=== PATIENT | male | born 1950 | race Caucasian/White ===

== ENCOUNTER 2019-08-04 10:24 | Outpatient (CLI) | payer BC, SELFPAY ==
--- NOTE | ~2019-08-04 | XR_ITS ---
XR abdomen/kub 1V DATE: 08/04/2019 10:48 INDICATION: Right ureteral stone TECHNIQUE: AP projection, 2 views COMPARISON: 08/04/[address] abdomen pelvis FINDINGS: A faintly calcified 5 mm stone overlies the lower right pelvis consistent with distal right ureteral calcified stone documented by CT abdomen pelvis examinations of 08/04/2019 and 08/01/2019. The psoas shadows are intact. No visceromegaly is evident. There is no evidence of bowel obstruction. Dextro scoliosis and multilevel degenerative disc disease of the lumbar spine. Diffuse idiopathic ske letal hyperostosis of the thoracic spine. IMPRESSION: Faintly calcified 5 mm distal right ureteral calcified stone Reviewed, dictated and finalized at [facility]. Reviewed, dictated and finalized at location A. WORKER
--- NOTE | ~2019-08-04 | CT_ITS ---
EXAMINATION: CT abdomen pelvis wo con DATE: 08/04/2019 10:45 INDICATION: Right ureteral stone TECHNIQUE: Computed tomography (CT) of the abdomen and pelvis was performed without intravenous contr ast. Automated exposure control and iterative reconstruction technique were employed. Exam dose: 213 .48 mGy-cm total exam DLP. COMPARISON: 08/01/2019 CT abdomen pelvis noncontrast examination FINDINGS: The previously reported 5 mm distal right ureteral stone has progressed slightly further in the distal right ureter, situated near the ureterovesical junction, with mildly increased hydronephr osis since 08/01/2019. There is mild right perinephric stranding. No other urinary tract calculus is noted. There are prostate calcifications as well as prostate enlargement. The urinary bladder is unremarkabl e. The included lower lung zones are clear. Normal heart size. No pericardial or pleural effusion. The liver, gallbladder, bile ducts, spleen, pancreas, pancreatic duct and adrenal glands are unremark able. Normal caliber of the abdominal aorta. No intraperitoneal or retroperitoneal or pelvic mass les ion or adenopathy or ascites is detected. No bowel obstruction or free air. Normal appendix. IMPRESSION: Persistent approximately 5 mm distal right ureteral calculus Reviewed, dictated and finalized at [facility]. Reviewed, dictated and finalized at location A. ERPRINTER
== END 2019-08-04 10:25 | disposition home or self-care (01) ==
LOC: ANHIMG 10:29
PROVIDERS: PCP Family Medicine; Visit Provider Urology
DX: N20.1 Calculus of ureter (principal)
CPT/HCPCS: 74018; 74176

== ENCOUNTER 2020-05-08 01:24 | Outpatient (CLI) | payer MEDICARE, SELFPAY ==
[2020-05-08 20:51] LABS: SARS-CoV-2 RNA PCR Negative
== END 2020-05-08 01:25 | disposition home or self-care (01) ==
LOC: ANHCOVIDDT 01:24
PROVIDERS: PCP Family Medicine; Visit Provider Internal Medicine Gastroenterology
DX: Z01.812 Encounter for preprocedural laboratory examination (principal); Z20.828 Contact with and (suspected) exposure to other viral communicable diseases
CPT/HCPCS: 87635; C9803; U0003

== ENCOUNTER 2020-05-10 00:49 | Day surgery (SDC) | payer MEDICARE, SELFPAY ==
[2020-05-03 14:53] VITALS: BMI 26.2
--- NOTE | 2020-05-09 12:30 | WPDANESEPPF ---
Anes - Initial Pre Proc Eval Procedure: Operation Date: 05/10/20 08:30 Proposed Procedures p Screening Colonoscopy - Afshin Sepulveda MD Date/Time: 05/09/20 12:30 Surgeon: Afshin Sepulveda MD Pre Op Diagnosis: neoplasm screening Patient Data Age: 69 Gender: M Height: 1.7 m Weight: 76 kg Allergies Allergy/AdvReac Type Severity Reaction Status Date / Time codeine Allergy Unknown ITCHING Verified 05/10/20 07:39 hydrocodone Allergy Unknown allergic Verified 05/10/20 07:39 to hydrocodone morphine Allergy Unknown itching, Verified 05/10/20 07:39 nausea oxycodone Allergy Unknown Unknown Verified 05/10/20 07:39 pentazocine Allergy Unknown HEAD,SPINAL Verified 05/10/20 07:39 THROBBING,RASH, ITCHING PENTAZOCINE LACTATE Allergy Unknown ITCHING Uncoded 05/10/20 07:39 Home Medications Medication Instructions Recorded Confirmed Type No Home Medications 05/03/20 05/03/20 History Patient hx anesthesia problems: none Family hx anesthesia problems: none PMFSH Past Medical History Medical History (Updated 05/10/20 @ 08:02 by Afshin Sepulveda MD) Arthritis Hyperlipidemia Kidney stone Overweight (BMI 25.0-29.9) Trigger finger Surgical History Surgical History H/O hernia repair H/O inguinal hernia repair H/O vasectomy History of total right knee replacement Family History Family History Father Diabetes mellitus Family history of coronary artery disease Mother Family history of malignant neoplasm of breast Social History Social History Smoking status: Never smoker Alcohol intake: current Drinks per week: 1 Alcohol use details: 1 BEER PER WEEK. Substance use: never Substance use type: does not use Living arrangements: with family Gender identity (if verbalized by the patient): Male Sexual Orientation (if Verbalized by the Patient): Straight or Heterosexual Spiritual care concerns: No Anes - Eval Final PreProcedure Day of Procedure 05/09/20 12:30 Patient weight: overweight Heart: regular rate and rhythm Lungs: clear to auscultation and normal air movement Airway: Mallampati scale class II Neurological: alert and oriented Last oral intake: >/= 8 hours ASA classification: II Emergent: no Anesthetic plan: proceed Anesthesia type and monitoring: general GIVS Informed Consent: The patient's anesthetic plan and its attendant risks and benefits were discussed with the patient/family/POA. Questions were solicited and answers provided to the satisfaction of the patient/family/POA.
[2020-05-10 07:40] VITALS: BP 107/82; PULSE 67; RESP 18; TEMP 36.2; O2SAT 99
[2020-05-10] MEDS: LACTATED RINGERS 1,000 ML 150 ML IV CONT (07:55)
--- NOTE | 2020-05-10 08:01 | WPDGICN ---
Assessment and Plan Assessment and plan (1) Encounter for screening colonoscopy: Code(s): Z12.11 - Encounter for screening for malignant neoplasm of colon Status: Acute Assessment and Plan: Patient presents for screening colonoscopy. Further recommendations will be given after endoscopy. GI Consult Note Consult date/time: 05/10/20 08:01 HPI: Shayan Villalobos is a 69 year old male Seen in evaluation at the request of Dr. Maldonado and PA. Schilling. patient presents for neoplasia screening. Patient's current weight appetite bowel movements are normal. he denies abdominal pain. He has had no bleeding. Last colonoscopy was 10 years ago. Family history is noncontributory. Review of Systems Review of Systems: All systems reviewed & are unremarkable except as noted in HPI and below PMFSH Past Medical History Medical History (Updated 05/10/20 @ 08:02 by Afshin Sepulveda MD) Arthritis Hyperlipidemia Kidney stone Overweight (BMI 25.0-29.9) Trigger finger Surgical History Surgical History H/O hernia repair H/O inguinal hernia repair H/O vasectomy History of total right knee replacement Family History Family History Father Diabetes mellitus Family history of coronary artery disease Mother Family history of malignant neoplasm of breast Social History Social History Smoking status: Never smoker Alcohol intake: current Drinks per week: 1 Alcohol use details: 1 BEER PER WEEK. Substance use: never Substance use type: does not use Living arrangements: with family Gender identity (if verbalized by the patient): Male Sexual Orientation (if Verbalized by the Patient): Straight or Heterosexual Spiritual care concerns: No Meds Home Medications and Allergies Home Medications Medication Instructions Recorded Confirmed Type No Home Medications 05/03/20 05/03/20 History Allergies Allergy/AdvReac Type Severity Reaction Status Date / Time codeine Allergy Unknown ITCHING Verified 05/10/20 07:39 hydrocodone Allergy Unknown allergic Verified 05/10/20 07:39 to hydrocodone morphine Allergy Unknown itching, Verified 05/10/20 07:39 nausea oxycodone Allergy Unknown Unknown Verified 11/05/20 07:39 pentazocine Allergy Unknown HEAD,SPINAL Verified 05/10/20 07:39 THROBBING,RASH, ITCHING PENTAZOCINE LACTATE Allergy Unknown ITCHING Uncoded 05/10/20 07:39 Vital Signs Vital Signs - 24 hr 05/10/20 07:40 Temperature 97.1 F L Pulse Rate 67 Respiratory Rate 18 Blood Pressure 107/82 Pulse Oximetry 99 Exam Narrative: Exam Narrative: Physical exam reveals patient to be alert. Vital signs stable. HEENT exam unremarkable. Lungs are clear to auscultation and percussion. Heart is without murmur or extra sounds. Abdominal exam bowel sounds are present soft nontender with no organomegaly. Digital external rectal exam normal.
[2020-05-10 08:43] VITALS: BP 99/69; PULSE 54; RESP 18; O2SAT 98
[2020-05-10 08:53] VITALS: BP 109/70; PULSE 53; RESP 17; O2SAT 98
[2020-05-10 09:03] VITALS: BP 108/70; PULSE 52; RESP 16; O2SAT 99
== END 2020-05-10 09:12 | disposition home or self-care (01) ==
PROVIDERS: PCP Family Medicine; Visit Provider Internal Medicine Gastroenterology
PROC: 0DJD8ZZ Inspection of Lower Intestinal Tract, Via Natural or Artificial Opening Endoscopic (ICD-10-PCS; CPT 45378; principal; 2020-05-10 08:30)
DX: Z12.11 Encounter for screening for malignant neoplasm of colon (principal); D12.5 Benign neoplasm of sigmoid colon; K64.8 Other hemorrhoids; E78.5 Hyperlipidemia, unspecified
CPT/HCPCS: 45385; 88305; J2704; J7120

== ENCOUNTER 2020-07-23 10:33 | Outpatient (CLI) | payer MEDICARE, SELFPAY ==
--- NOTE | ~2020-07-23 | XR_ITS ---
EXAMINATION: XR lg joint inject/asp w image EXAM DATE: 07/23/2020 11:34 INDICATION: Left shoulder pain. TECHNIQUE: A time-out was performed to verify the patient's name, date of , and procedure to b e performed. The procedure including the risks, benefits and alternatives were discussed with the pat ient. Risks discussed included bleeding and infection. The patient understood the risks and agreed to proceed. The skin overlying the left shoulder joint was prepped and draped in usual sterile fashion. Anesthetic was administered with 2 milliliters 1% lidocaine subcutaneously. A 22 G needle was adva nced under fluoroscopic guidance into the joint. Total of 2 mL of Omnipaque 240 confirmed intra-ar ticular position of the needle. Subsequently, injectate consisting of 80 mg Depo-Medrol, 3 cc 1% lid ocaine was instilled. The needle was removed and the entry site was cleaned and dressed. There wer e no immediate complications. The DAP for this procedure was 0.084 Gycm2. The procedure was perform ed on 07/23/2020. FINDINGS: Real-time fluoroscopy demonstrates the needle and contrast in the left shoulder joint. Patient reported left shoulder pain level of 4/10 before procedure, and pain level of 3/10 after proc edure. IMPRESSION: Successful left shoulder joint injection. Reviewed, dictated and finalized at location A. MOLDER
== END 2020-07-23 10:34 | disposition home or self-care (01) ==
LOC: ANHIMG 10:38
PROVIDERS: PCP Family Medicine; Visit Provider Orthopaedic Surgery
DX: M19.012 Primary osteoarthritis, left shoulder (principal)
CPT/HCPCS: 20610; 77002; J1040; Q9966

== ENCOUNTER 2020-07-25 10:18 | Outpatient (CLI) | payer MEDICARE, SELFPAY ==
--- NOTE | 2020-07-25 11:00 | NEURO_ITS ---
Impression: # Complains of numbness of hands. # Bilateral Carpal Tunnel Syndrome. # No ulnar neuropathy. # Normal needle/EMG exam. Nerve Conduction Studies Anti Sensory Summary Table Stim Site NR Peak (ms) P-T Amp (?V) Site1 Site2 Delta-P (ms) Dist (cm) Emanuel (m/s) Left Median Anti Sensory (2-3nd Digit) Wrist 3.5 29.2 Wrist 2-3nd Digit 3.5 14.0 40 Wrist 3.5 35.0 Wrist 2-3nd Digit 3.5 14.0 40 Right Median Anti Sensory (2-3nd Digit) Wrist 3.7 13.6 Wrist 2-3nd Digit 3.7 14.0 38 Wrist 3.7 25.5 Wrist 2-3nd Digit 3.7 14.0 38 Left Radial Anti Sensory (Base 1st Digit) Wrist 2.2 13.5 Wrist Base 1st Digit 2.2 0.0 Right Radial Anti Sensory (Base 1st Digit) Wrist 2.6 13.1 Wrist Base 1st Digit 2.6 0.0 Left Ulnar Anti Sensory (5th Digit) Wrist 2.7 34.1 Wrist 5th Digit 2.7 14.0 52 Right Ulnar Anti Sensory (5th Digit) Wrist 2.5 35.8 Wrist 5th Digit 2.5 14.0 56 Motor Summary Table Stim Site NR Onset (ms) O-P Amp (mV) Site1 Site2 Delta-0 (ms) Dist (cm) Emanuel (m/s) Left Median Motor (Abd Poll Brev) Wrist 4.6 1.0 Elbow Wrist 4.9 27.0 55 Elbow 9.5 4.1 Right Median Motor (Abd Poll Brev) Wrist 4.8 2.1 Elbow Wrist 4.6 27.0 59 Elbow 9.4 4.0 Left Ulnar Motor (Abd Dig Minimi) Wrist 2.7 5.7 A Elbow Wrist 5.2 30.0 58 A Elbow 7.9 4.5 Right Ulnar Motor (Abd Dig Minimi) Wrist 2.6 7.1 A Elbow Wrist 4.7 27.0 57 A Elbow 7.3 6.1 F Wave Studies NR F-Lat (ms) L-R F-Lat (ms) Left Median (Mrkrs) (Abd Poll Brev) 30.36 0.50 Right Median (Mrkrs) (Abd Poll Brev) 30.86 0.50 Left Ulnar (Mrkrs) (Abd Dig Min) 30.47 0.94 Right Ulnar (Mrkrs) (Abd Dig Min) 29.53 0.94 EMG Side Muscle Nerve Root Ins Act Fibs Amp Dur Recrt Comment Right 1stDorInt Ulnar C8-T1 Nml Nml Nml Nml Nml Right Ext Indicis Radial (Post Int) C7-8 Nml Nml Nml Nml Nml Right Ext Digitorum Radial (Post Int) C7-8 Nml Nml Nml Nml Nml Right BrachioRad Radial C5-6 Nml Nml Nml Nml Nml Right PronatorTeres Median C6-7 Nml Nml Nml Nml Nml Right Abd Poll Brev Median C8-T1 Nml Nml Nml Nml Nml Left 1stDorInt Ulnar C8-T1 Nml Nml Nml Nml Nml Left Ext Indicis Radial (Post Int) C7-8 Nml Nml Nml Nml Nml Left Ext Digitorum Radial (Post Int) C7-8 Nml Nml Nml Nml Nml Left BrachioRad Radial C5-6 Nml Nml Nml Nml Nml Left PronatorTeres Median C6-7 Nml Nml Nml Nml Nml Left Abd Poll Brev Median C8-T1 Nml Nml Nml Nml Nml Right ABD Dig Min Ulnar C8-T1 Nml Nml Nml Nml Nml Left ABD Dig Min Ulnar C8-T1 Nml Nml Nml Nml Nml MTDD
== END 2020-07-25 10:19 | disposition home or self-care (01) ==
LOC: ANHNEURO 10:19
PROVIDERS: PCP Family Medicine; Visit Provider Plastic Surgery
DX: R20.0 Anesthesia of skin (principal); G56.03 Carpal tunnel syndrome, bilateral upper limbs
CPT/HCPCS: 95886; 95911

== ENCOUNTER 2020-08-09 06:38 | Outpatient (CLI) | payer MEDICARE, SELFPAY ==
--- NOTE | ~2020-08-09 | CT_ITS ---
EXAMINATION: CT abdomen pelvis w con DATE: 08/09/2020 07:16 INDICATION: Prostate cancer TECHNIQUE: Computed tomography (CT) of the abdomen and pelvis was performed with 100 cc Omnipaque 350 intravenous contrast. Automated exposure control and iterative reconstruction technique were employe d. Exam dose: 341.20 mGy-cm total exam DLP. COMPARISON: 08/04/[address] abdomen pelvis FINDINGS: The lung bases are clear of infiltrate or consolidation. Normal heart size. No pericardial or pleural effusion. There is a posteromedial small fat-containing foramen of Bochdalek hernia. There is a 5 mm right hepatic cyst. No other hepatic space-occupying mass lesion is detected. Normal splenic size. No pancreatic mass lesion, calcification or ductal dilatation. The gallbladder is prese nt. No bile duct dilatation. No adrenal mass lesion is detected. 1.3 cm right renal cyst. No renal mass lesion is evident. No urinary tract calculus or hydroureteronephrosis. There is prominent prostate enlargement an patchy contrast enhancement. There is prominent vascularit y adjacent to the prostate gland, especially on the right. There is mild asymmetric enlargement of th e right seminal vesicle compared to the left. The urinary bladder is unremarkable. No abdominal aortic aneurysm. No intraperitoneal or retroperitoneal or pelvic mass lesion or adenopat hy or ascites. Normal appendix. Diverticulosis of the sigmoid colon; no CT evidence of diverticulitis. No bowel obstruction, bowel wa ll thickening, pneumatosis or intraperitoneal free air. Degenerative changes of the thoracic and lumbar spine; no suspicious osteolytic or osteoblastic lesio ns are noted. Bilateral hip osteoarthritis. IMPRESSION: Enlargement and patchy contrast enhancement of the prostate gland, consistent with clini justin history of prostate cancer. There is mild asymmetric enlargement of the right; which might indica te tumor extension. No pelvic or abdominal lymphadenopathy or osteosclerotic metastatic disease is detected 1.3 cm right renal cyst Small hepatic Diverticulosis of the colon Reviewed, dictated and finalized at [facility]. Reviewed, dictated and finalized at location A. PACKER IMPRESSION: Enlargement and patchy contrast enhancement of the prostate gland, consistent with clinical history of prostate cancer. There is mild asymmetric enlargement of the right; which might indicate tumor extension. No pelvic or abdominal lymphadenopathy or osteosclerotic metastatic disease is detected 1.3 cm right renal cyst Small hepatic Diverticulosis of the colon
[2020-08-09 07:12] LABS: Estimated Glomerular Filt Rate > 60
== END 2020-08-09 06:39 | disposition home or self-care (01) ==
LOC: ANHIMG 06:41
PROVIDERS: PCP Family Medicine; Visit Provider Urology
DX: C61 Malignant neoplasm of prostate (principal); N28.1 Cyst of kidney, acquired; K76.89 Other specified diseases of liver; K57.90 Diverticulosis of intestine, part unspecified, without perforation or abscess without bleeding
CPT/HCPCS: 74177; Q9967

== ENCOUNTER → 2020-08-13 01:14 | Outpatient (CLI) | payer MEDICARE, SELFPAY ==
[2020-08-13 18:28] LABS: SARS-CoV-2 RNA PCR Negative
== END ==
PROVIDERS: PCP Family Medicine; Visit Provider Plastic Surgery
DX: Z01.812 Encounter for preprocedural laboratory examination (principal); Z20.822 Contact with and (suspected) exposure to COVID-19
CPT/HCPCS: C9803; U0003; U0005

== ENCOUNTER 2020-08-16 01:25 | Day surgery (SDC) | payer MEDICARE, SELFPAY ==
[2020-08-08 14:20] VITALS: BMI 24.5
[2020-08-16] VITALS (7 sets, daily range): BP systolic 147–189; BP diastolic 65–82; PULSE 55–63; RESP 16; TEMP 36.3; O2SAT 99–100
--- NOTE | 2020-08-16 07:13 | WPDHPUPDATE1 ---
History and Physical Update Update Date/Time: 08/16/20 07:13 History and Physical has been reviewed, including an updated exam of the patient. There are NO changes in the patient's condition. Risks, benefits, and alternatives have been discussed and questions answered. Patient agrees to proceed with procedure.
--- NOTE | 2020-08-16 15:39 | SUR.PREOP ---
Up to bathroom.
[2020-08-16] MEDS: LIDO 1%/EPINEPHRINE 1:100,000 50 ML VIAL 6 ML INFILTRATE (16:22)
--- NOTE | 2020-08-16 16:33 | SUR.OPER ---
BILATERAL HAND INJECTIONS [address] OMER
--- NOTE | 2020-08-16 16:48 | PM.OP ---
Procedure Note - Brief Procedure Note - Brief Date of procedure: 08/16/20 Pre-op diagnosis: Bilateral Carpal Tunnel Syndrome Procedure performed: B OCTR Anesthesia: local Surgeon: Yogi Brown MD Estimated blood loss (mL): 3 Tourniquet time (min): 10 Drains: No Packing: No Pathology: none sent Condition: stable Disposition: same day
--- NOTE | 2020-08-16 16:52 | PM.PROC ---
Procedure Note - Detailed Date of procedure: 08/16/20 Pre-op diagnosis: Bilateral Carpal Tunnel Syndrome Post-op diagnosis: same Procedure performed: Bilateral open carpal tunnel release Description of procedure: The patient is under local anesthetic period of the sites were not marked in preop. He was taken to the operating room placed supine on the operating table. The hands were confirmed and at that time. The extremities were prepped and draped in usual fashion. The time-out was held and confirmed. The sites were marked for carpal tunnel release and locally infiltrated with 1% lidocaine with epinephrine. The left hand was done 1st. We inflated the tourniquet to 250 mmHg. The incision was made in the palm and carried bluntly through the subcutaneous tissue to the palmar fascia. This and the carpal ligament were incised with a 15 blade. Encountered on this side was a large neurovascular structure running from the ulnar side of this incision crossing distally to the mid palm. This structure was held out of harm's way as we proceeded. Under 3 point retraction we were able to identify and release the carpal ligament distally and proximally for complete release. The skin was closed with interrupted 4-0 nylon suture and a small bandage with Noel wraps applied. The tourniquet was released it was up for 7 minutes. Attention was then turned to the other hand and the incision was made as marked after inflating the tourniquet to 250 mmHg. The incision was carried bluntly through to palmar fascia. This and the carpal ligament were incised with a 15. Blade. Under 3 point retraction the ligament was divided distally and proximally for complete release. No unusual anatomy was noted on this side. The skin was closed with interrupted 4-0 nylon as the tourniquet was released during that process. The tourniquet was up for 3 minutes. The usual bandage was applied and he was discharged from the operating room in stable condition. He prefers not to have a narcotic analgesic. Surgeon: Yogi Brown MD
== END 2020-08-16 17:28 | disposition home or self-care (01) ==
PROVIDERS: PCP Family Medicine; Visit Provider Plastic Surgery
PROC: (CPT 64721; principal; 2020-08-16 15:45)
DX: G56.03 Carpal tunnel syndrome, bilateral upper limbs (principal)
CPT/HCPCS: 64721; A9270

== ENCOUNTER 2020-09-28 09:00 | Outpatient (CLI) | payer MEDICARE, SELFPAY ==
--- NOTE | 2020-09-28 09:38 | ECG_ITS ---
Measurements Intervals [place] Rate: 51 P: 60 VA: 191 QRS: 13 QRSD: 105 T: 30 QT: 408 QTc: 377 Interpretive Statements SINUS BRADYCARDIA BORDERLINE ECG Electronically Signed On 09-28-2020 10:27:44 CDT by Jamshid Martinez D.O.
[2020-09-28 10:07] LABS: Basophils Absolute Auto 0.1 K/mm3 (0.0-0.1); Basophils Percent Auto 1.3 % (0.2-1.2); Eosinophils Absolute Auto 0.2 K/mm3 (0-0.3); Eosinophils Percent Auto 3.3 % (0-4.4); Hematocrit 45.9 % (42.0-52.0); Hemoglobin 15.9 g/dL (14.0-18.0); Immature Granulocyte Absolute 0.02 K/mm3 (0.00-0.031); Immature Granulocyte Percent A 0.4 % (0-0.5); Lymphocytes Absolute Auto 1.15 K/mm3 (0.9-3.2); Mean Corpuscular HGB Conc 34.6 g/dl (32-36); Mean Corpuscular Hemoglobin 30.7 pg (26-34); Mean Corpuscular Volume 88.6 fl (80-100); Mean Platelet Volume 9.5 fl (7.4-10.4); Monocytes Absolute Auto 0.5 K/mm3 (0.1-0.6); Monocytes Percent Auto 9.4 % (2.6-8.5); Neutrophils Percent Auto 61.6 % (45.5-73.1); Platelet Count Result 181 k/mm3 (150-375); Red Blood Count 5.18 M/mm3 (4.6-6.20); Red Cell Distribution Width 12.7 % (11.5-14.5); White Blood Count 4.8 K/mm3 (4.5-10.0)
[2020-09-28 10:19] LABS: INR 0.9; Prothrombin Time 12.5 Seconds (11.1-14.7)
[2020-09-28 10:20] LABS: Alanine Aminotransferase 27 U/L (4-50); Albumin Level 4.3 g/dL (3.5-5.1); Alkaline Phosphatase 48 U/L (38-126); Anion Gap 4 mmol/L (8-16); Aspartate Amino Transferase 30 U/L (17-59); Bilirubin,Total 0.4 mg/dL (0.2-1.3); Blood Urea Nitrogen 20 mg/dL (9-20); Calcium 9.1 mg/dL (8.4-10.2); Carbon Dioxide 30 mmol/L (22-30); Chloride 107 mmol/L (98-107); Estimated Glomerular Filt Rate > 60; Glucose 69 mg/dL (75-110); Partial Thromboplastin Time 24.5 SECONDS (22.3-36.8); Sodium 141 mmol/L (137-145)
== END 2020-09-28 09:01 | disposition home or self-care (01) ==
PROVIDERS: PCP Family Medicine; Visit Provider Urology
DX: Z01.818 Encounter for other preprocedural examination (principal); C61 Malignant neoplasm of prostate; E78.5 Hyperlipidemia, unspecified; R00.1 Bradycardia, unspecified
CPT/HCPCS: 36415; 80053; 85025; 85610; 85730; 86850; 86900; 86901; 87086; 87088; 93005

== ENCOUNTER → 2020-10-08 00:09 | Outpatient (CLI) | payer MEDICARE, SELFPAY ==
[2020-10-08 19:28] LABS: SARS-CoV-2 RNA PCR Negative
== END ==
PROVIDERS: PCP Family Medicine; Visit Provider Urology
DX: Z01.812 Encounter for preprocedural laboratory examination (principal); Z20.822 Contact with and (suspected) exposure to COVID-19
CPT/HCPCS: C9803; U0003; U0005

== ENCOUNTER 2020-10-11 00:09 | Day surgery (SDC) | payer MEDICARE, SELFPAY ==
[2020-09-28 09:15] VITALS: BP 124/76; PULSE 60; RESP 20; TEMP 36.3; O2SAT 98; BMI 25.2
[2020-10-11] VITALS (14 sets, daily range): BP systolic 113–154; BP diastolic 64–83; PULSE 57–78; RESP 12–18; TEMP 36–36.4; O2SAT 96–100
[2020-10-11] MEDS: LACTATED RINGERS 1,000 ML 30 ML IV CONT ×2 (06:30→11:33)
--- NOTE | 2020-10-11 06:56 | WPDANESEPP ---
Anes - Eval Pre Procedure Procedure: Operation Date: 10/11/20 07:30 Proposed Procedures p Robotic Assisted Nerve Sparing Prostatectomy with Possible Pelvic Lymph Node Dissection - Elvis Rosales MD Date/Time: 10/11/20 06:56 Pre Op Diagnosis: prostate CA Patient Data Age: 69 Gender: M Height: 5 ft 7.5 in Weight: 74 kg Last Vital Signs Temp 97.3 F L 09/28/20 09:15 Pulse 60 09/28/20 09:15 Resp 20 09/28/20 09:15 BP 124/76 09/28/20 09:15 Pulse Ox 98 09/28/20 09:15 Allergies Allergy/AdvReac Type Severity Reaction Status Date / Time bee venom protein (honey bee) Allergy Unknown Swelling Verified 10/11/20 06:56 [bees] codeine Allergy Unknown Hives Verified 10/11/20 06:56 hydrocodone Allergy Unknown Hives Verified 10/11/20 06:56 morphine Allergy Unknown itching, Verified 10/11/20 06:56 nausea oxycodone Allergy Unknown Itching Verified 10/11/20 06:56 PENTAZOCINE LACTATE Allergy Unknown ITCHING Uncoded 10/11/20 06:56 Home Medications Medication Instructions Recorded Confirmed Type epinephrine 0.3 mg IM PRN PRN 08/08/20 09/28/20 History Patient hx anesthesia problems: none Family hx anesthesia problems: none PMFSH Past Medical History Medical History Anemia Arthritis Back pain Elevated PSA Encounter for screening colonoscopy Hyperlipidemia Kidney stone Overweight (BMI 25.0-29.9) Prostate CA Trigger finger Surgical History Surgical History H/O hernia repair H/O inguinal hernia repair H/O vasectomy History of total right knee replacement Family History Family History Father Diabetes mellitus Family history of coronary artery disease Mother Family history of malignant neoplasm of breast Social History Social History Smoking status: Never smoker Second hand tobacco smoke exposure: No Alcohol intake: current Drinks per week: 1 Substance use: never Substance use type: does not use Living arrangements: with family Gender identity (if verbalized by the patient): Male Spiritual care concerns: No Comments VR 51 SINUS BRADYCARDIA BORDERLINE ECG Exam Day of Procedure 10/11/20 06:56
--- NOTE | 2020-10-11 07:15 | WPDHPUPDATE1 ---
History and Physical Update Update Date/Time: 10/11/20 07:15 History and Physical has been reviewed, including an updated exam of the patient. There are NO changes in the patient's condition. Risks, benefits, and alternatives have been discussed and questions answered. Patient agrees to proceed with procedure. Proceed with robotic assist nerve sparing prostatectomy with possible plnd
[2020-10-11] MEDS: ceFAZolin 2 GM/D5W 50 ML 2 GM/50 ML BAG IVPB (07:29)
--- NOTE | 2020-10-11 07:34 | P.PNAN_ITS ---
Anes - Eval Final PreProcedure Day of Procedure 10/11/20 07:34 Patient weight: normal Heart: regular rate and rhythm Lungs: clear to auscultation Airway: Mallampati scale class II Neurological: alert and oriented Last oral intake: >/= 8 hours ASA classification: III Emergent: no Anesthetic plan: proceed Anesthesia type and monitoring: general ETT and standard monitoring Informed Consent: The patient's anesthetic plan and its attendant risks and b enefits were discussed with the patient/family/POA. Questions were solicited and answers provided to the satisfaction of the patient/family/POA.
[2020-10-11] MEDS: BUPIVACAINE HCL 0.5% PF 30 ML VIAL INFILTRATE (07:59)
--- NOTE | 2020-10-11 10:26 | SUR.OPER ---
total u/a output 125ml clear yellow u/a.
--- NOTE | 2020-10-11 11:20 | PM.PROC ---
Procedure Note - Detailed Date of procedure: 10/11/20 Pre-op diagnosis: prostate CA Post-op diagnosis: same Procedure performed: Robotic assisted nerve-sparing prostatectomy with right pelvic lymph node dissection Description of procedure: Patient is taken the operative suite and correctly identified. Once anesthesia was obtained was placed in low lying dorsal lithotomy position and prepped and draped usual sterile fashion. Sixteen Sinhala Eric was inserted with 20 cc in the balloon. Supraumbilical incision was then made carried down to the rectus fascia. Veress needle was inserted in the abdomen was insufflated to 15 mm Hg pressure. Camera port was placed in direct vision. Working ports were placed in appropriate locations. Patient was placed in steep Trendelenburg position and the robot was docked. The posterior approach was taken. Seminal vesicles were dissected out in their entirety. The vessels were transected. Plane between the prostate and rectum was developed. Bladder was then taken down in standard fashion. Space of Retzius was developed bilaterally extent and extended down to the puboprostatic ligaments. These were taken down. Dorsal venous complex was isolated using 0 Vicryl. This was secured to the pubic bone. The bladder neck was then opened. Bladder neck sparing procedure was performed. Patient has small median lobe which was dissected out. The posterior plane was then opened and the previously dissected seminal vesicles and vas were isolated. Pedicles were clipped. Bilateral nerve-sparing was performed. Dorsal venous complex was then transected. Urethra was also transected. A Vikas stitch was then placed using 0 Vicryl. Bladder neck was reapproximated to the urethral stump using V lock suture in a running fashion. There was good approximation mucosa. Sixteen Sinhala Eric was placed inflated with 10 cc sterile water. The bladder was filled with 250 cc of normal saline and there was no evidence of extravasation at this time. Right pelvic lymph node dissection was then performed with the boundaries being the external iliac vein obturator nerve, Benjie's ligament, and the bifurcation. Clips were placed distally and proximally. Specimens were placed in an Endo-Catch bag. A lap count needle count sponge counts were correct at this point. The robot was undocked. Specimen was brought out through the midline incision. Rectus fascia was closed using 0 Vicryl in a running fashion. Subcuticular stitches were then placed. Marcaine was used to anesthetize the skin. A Tr drain was placed through the 3rd arm port site and secured. Patient tolerated procedure well without complication is taken recovery stable condition. Anesthesia: GETA Surgeon: Elvis Rosales MD Estimated blood loss (mL): 100 Drains: Yes Packing: No Pathology: yes Complications: No immediate complications Condition: stable Disposition: PACU
[2020-10-11] MEDS: fentaNYL CITRATE INJ (*CRX) 100 MCG/2 ML VIAL 25 MCG IV PUSH (12:39)
--- NOTE | 2020-10-11 12:50 | ADMGEN ---
This patient, Shayan Villalobos, was admitted to Medical Room 252-01. Patient/family oriented to hospital policies and general routines including ID bracelet, bed and alarms, visiting hours, pain management, procedures, bathroom and other care routines, personal items, smoking policy, room service/diet, and visiting hours. Information on how to activate the Rapid Response Team has been discussed. Patient/Family are encouraged to report perceived risks to care and to ask questions if they do not understand what they are told or what they should do.
[2020-10-11] MEDS: LACTATED RINGERS 1,000 ML 125 ML IV CONT ×2 (13:27→20:51)
[2020-10-11] MEDS: KETOROLAC 15 MG/ML VIAL (*BKC) IV PUSH ×3 (13:27→23:51)
[2020-10-11] MEDS: DOCUSATE SODIUM 100 MG CAPSULE PO (17:00)
[2020-10-11] MEDS: traMADol HCL (*CRX) 50 MG TABLET PO (20:53)
[2020-10-12 02:00] VITALS: BP 114/60; PULSE 62; RESP 16; TEMP 36.2; O2SAT 98
[2020-10-12] MEDS: LACTATED RINGERS 1,000 ML 125 ML IV CONT (04:45)
[2020-10-12 05:40] LABS: Hematocrit 37.4 % (42.0-52.0); Hemoglobin 13.1 g/dL (14.0-18.0)
[2020-10-12 05:42] VITALS: BP 122/65; PULSE 55; RESP 16; TEMP 36.1; O2SAT 99
[2020-10-12 05:54] LABS: Anion Gap 2 mmol/L (8-16); Blood Urea Nitrogen 14 mg/dL (9-20); Calcium 7.8 mg/dL (8.4-10.2); Carbon Dioxide 29 mmol/L (22-30); Chloride 105 mmol/L (98-107); Estimated CRCL calculation 74 ml/min; Estimated Glomerular Filt Rate > 60; Glucose 104 mg/dL (75-110); Sodium 136 mmol/L (137-145)
[2020-10-12] MEDS: DOCUSATE SODIUM 100 MG CAPSULE PO (08:52)
[2020-10-12 10:00] VITALS: BP 134/58; PULSE 61; RESP 16; TEMP 36.1; O2SAT 100
[2020-10-12] MEDS: traMADol HCL (*CRX) 50 MG TABLET PO (10:57)
--- NOTE | 2020-10-12 12:17 | P.DS_ITS ---
DS: Admitting Diagnosis Admitting Diagnosis Admitting Diagnosis: Adenocarcinoma prostate DS: Discharge Diagnosis Discharge Diagnosis (1) Adenocarcinoma of prostate: Code(s): C61 - Malignant neoplasm of prostate Status: Acute DS: Summary Hospital Course Reason for hospitalization: adenocarcinoma of prostate. Presents for robotic assisted nerve-sparing prostatectomy with possible pelvic lymph node dissection Hospital Course: patient was admitted after his robotic assisted nerve-sparing prostatectomy. He has done well postoperatively. He is tolerating a diet and ambulating without difficulty. He will be discharged home with this Eric catheter in place. Status at Discharge Functional status at discharge: independent ambulation Time Spent with Patient Time attestation: Total time spent providing and/or coordinating discharge services: Exam 2 Const: General: cooperative and comfortable Eyes: General: appearance normal, both eyes and all related structures Chest: Chest palpation & inspection: normal inspection of the chest Resp: Effort & Inspection: normal respiratory effort Cardio: Rate: regular rate Rhythm: regular rhythm DS: Data Data Completed and Pending Pending studies at discharge: Pending at discharge 10/11/20 10:12 Surgical [PTH] Routine Surgical [PTH] Routine Labs on day of discharge: Labs from last 24 hours 10/12/20 10/12/20 05:13 05:13 Hgb 13.1 L Hct 37.4 L Sodium 136 L Potassium 4.0 Chloride 105 Carbon Dioxide 29 Anion Gap 2 L BUN 14 D Creatinine 0.80 Estim Creat Clear Calc 74 Estimated GFR > 60 Glucose 104 Calcium 7.8 L Discharge Plan Discharge Patient Disposition: Home, Self-Care Discharge Instructions: Discharged home with Eric catheter. Instructed on use of leg bag and catheter care. Follow up next week for catheter cystogram Stand Alone Forms: General Discharge Instructions Discharge Medications: Continued epinephrine 0.3 mg/0.3 mL auto-injector 0.3 mg IM PRN PRN (Reason: Allergic Symptoms) RF: 0
== END 2020-10-12 14:20 | disposition home or self-care (01) ==
LOC: ANHSURGERY 06:04 → ANH2MED 12:48
PROVIDERS: PCP Family Medicine; Visit Provider Urology
PROC: 0VT04ZZ Resection of Prostate, Percutaneous Endoscopic Approach (ICD-10-PCS; CPT 55867; principal; 2020-10-11 07:30)
DX: C61 Malignant neoplasm of prostate (principal); D64.9 Anemia, unspecified; E78.5 Hyperlipidemia, unspecified; M19.90 Unspecified osteoarthritis, unspecified site
CPT/HCPCS: 55866; 38571; S2900; 36415; 80048; 85014; 85018; 88305; 88307; 88309; 88342; A9270; J0330; J0690; J1100; J1885; J2250; J2405; J2704; J2710; J3010; J7030; J7120; Q9968

== ENCOUNTER 2020-10-18 10:16 | Outpatient (CLI) | payer MEDICARE, SELFPAY ==
--- NOTE | ~2020-10-18 | XR_ITS ---
EXAMINATION: XR cystogram EXAM DATE: 10/18/2020 10:59 INDICATION: Prostate cancer, had resection. TECHNIQUE: Fluoroscopic guidance used during cystogram performed through Eric catheter in place on p atient arrival. An Omnipaque 350/saline solution was used and allowed to infuse through the Eric cat heter under gravity. Wool Carder image, fluoroscopic images and postevacuation image were obtained. Total fluoroscopic time of 0.1 minutes. A total of 20 images obtained for the exam. The DAP for this proce dure was 7.6 mGym2. FINDINGS: Wool Carder image demonstrates scattered subcutaneous gas along the thighs and pelvis. There is m oderate symmetric bilateral hip primary osteoarthritis. Patient tolerated approximately 125 milliliters of distention. There is mild bladder wall trabeculati on. No contrast extravasation. Oblique images obtained at maximal distention demonstrate no evidence of ureteral reflux, however upon emptying the bladder, on the posterior back image there is linear co ntained appearing contrast most likely small amount of reflux into the left ureter. IMPRESSION: 1. Linear residual region of contrast on post evacuation image most likely small amount of left uret eral reflux. 2. Scattered subcutaneous emphysema. 3. No extravasation. Reviewed, dictated and finalized at location A. IMPRESSION: 1. Linear residual region of contrast on post evacuation image most likely sma ll amount of left ureteral reflux. 2. Scattered subcutaneous emphysema. 3. No extravasation.
== END 2020-10-18 10:17 | disposition home or self-care (01) ==
PROVIDERS: PCP Family Medicine; Visit Provider Urology
DX: C61 Malignant neoplasm of prostate (principal); J43.9 Emphysema, unspecified
CPT/HCPCS: 51600; 74430; Q9967

== ENCOUNTER 2021-06-24 02:26 | Day surgery (SDC) | payer MEDICARE, SELFPAY ==
[2021-06-19 11:16] VITALS: BMI 23.6
--- NOTE | 2021-06-19 11:22 | PC.NURSE ---
Report to the Outpatient Waiting Room, entrance under the green pavilion located off [facility], at time __0600 on date __06/24/21 . OR Time: . - You and your visitor will be asked a series of questions to screen for COVID 19 for your protection. - A mask is required within the hospital. - Only one visitor is allowed at this time. Patient visitors will be guided where to wait when not with patient. Preoperative COVID Testing Requirements: No COVID Test needed if: (proof is required; if not received patient will have Rapid Test prior to entry) - Patient has received COVID Vaccine at least 14 days prior to procedure date or - Patient has positive COVID test result within last 90 days of surgery date. COVID Test needed if above criteria is not met If not COVID vaccinated a COVID test must be conducted within 72 hours of surgery and patient is asked to isolate self from time of testing until procedure. You will go to the [facility] for your COVID testing. The [facility] Testing site is located at the corner of [address] [facility]. You will only be called if COVID results are positive and your surgeon may reschedule your elective surgery date. Patients may have clear liquids (water, carbonated beverages, clear teas, apple juice) until 3 hours prior to surgery with a maximum of 20 ounces. - No food from midnight until time of surgery - Infants may have breast milk until 4 hours before surgery, infant formula 6 hours prior to surgery. - Children will be allowed to drink immediately following surgery. If applicable, please bring a bottle or sippy cup to assist with drinking. Juice, water, soda, and popsicles are readily available. For infants on formula, please bring formula the day of surgery. Pacifiers are allowed. Take the following medications with a SIP of water the morning of surgery: __NONE Medications to discontinue per physician NONE Date to take last dose Please no make-up, nail bhutanese, hairspray, perfume, deodorant, or body powder the day of surgery. No jewelry (including any body piercings) or valuables the day of surgery, leave them at home. Please take a shower or bath the night before, or the morning of, surgery with an antibacterial soap. Wear comfortable, loose fitting clothing. Children are encouraged to wear pajamas. - Jewelry must be removed prior to entering the operating room. Rings and piercings that are not removed may be cut off. - The hospital will not accept responsibility for valuables. - Please leave all valuables, including medications, at home the day of surgery. If you are going home after surgery, a licensed home delivery driver must drive you home. - NO public transportation without another adult. - We recommend that an adult stay with you for 24 hours following discharge. - We also recommend that you do not drive, make important decision, drink alcoholic beverages, or take any drugs that were not prescribed by your health care provider for at least 24 hours after your discharge time. For Pediatric surgeries, we recommend two adults accompany the child home (only one inside the building at this time). Follow any additional instructions given to you from your surgeon. Telephone instructions given to __PATIENT and asked if any additional questions and then verbalized understanding. Patient advised to call surgeon office or pre surgery nurse liaison [phone] if any additional questions.
--- NOTE | 2021-06-21 08:08 | PM.IMHP ---
H&P: HPI History of Present Illness Date/Time: 06/21/21 08:08 70-year-old male patient Dr. Santoyo who presents today for right 5th A1 tawanda release patient cortisone injections in both these fingers A1 pulleys in December of this year. He got good relief 2 months. Symptoms have recurred. Rather proceed at point with surgical intervention rather than additional nonsurgical treatment. Chief Complaint: Right long and 5th trigger fingers Review of Systems Review of Systems: All systems reviewed & are unremarkable except as noted in HPI and below PMFSH Past Medical History Medical History Anemia Arthritis Back pain Elevated PSA Encounter for screening colonoscopy Hyperlipidemia Kidney stone Overweight (BMI 25.0-29.9) Prostate CA (~10/11/20) Trigger finger Surgical History Surgical History H/O hernia repair H/O inguinal hernia repair H/O vasectomy History of total right knee replacement Family History Family History Father Diabetes mellitus Family history of coronary artery disease Mother Family history of malignant neoplasm of breast Social History Social History Smoking status: Never smoker Second hand tobacco smoke exposure: No Alcohol intake: current Drinks per week: 1 Alcohol use details: 1 BEER PER WEEK. Substance use: never Substance use type: does not use Living arrangements: with family Gender identity (if verbalized by the patient): Male Sexual Orientation (if Verbalized by the Patient): Straight or Heterosexual Spiritual care concerns: No Meds Home Medications and Allergies Home Medications Medication Instructions Recorded Confirmed Type No Home Medications 06/19/21 06/19/21 History Allergies Allergy/AdvReac Type Severity Reaction Status Date / Time Sulfa (Sulfonamide Allergy Intermediate Abdominal Verified 06/19/21 11:06 Antibiotics) Pain bee venom protein (honey bee) Allergy Unknown Swelling Verified 06/19/21 11:06 [bees] codeine Allergy Unknown Hives Verified 06/19/21 11:06 hydrocodone Allergy Unknown Hives Verified 06/19/21 11:06 morphine Allergy Unknown itching, Verified 06/19/21 11:06 nausea oxycodone Allergy Unknown Itching Verified 06/19/21 11:06 PENTAZOCINE LACTATE Allergy Unknown ITCHING Uncoded 06/19/21 11:06 Exam Narrative: 70-year-old male alert pleasant. Patient's right hand has prominent triggering of both the long 5th fingers. He has full range of motion of fingers otherwise. Mild to moderate discomfort to palpation of the A1 pulleys in both the long and 5th finger. 2+ radial pulse. No numbness or tingling. He has scar the volar aspect of the wrist from previous carpal tunnel release. Resp: Auscultation: clear to auscultation bilaterally Cardio: Rate: regular rate Rhythm: regular rhythm Assessment and Plan Additional Plan Patient has recurrent triggering of the right long and 5th finger. Options were discussed. He may have an additional injection to try to improve his symptoms. Other option is surgical release the A1 pulleys. Patient would rather proceed with surgery at this point rather than continue nonsurgical treatment triggering is rather painful for him a problematic on a daily basis. Surgical procedure as well as risk and complications were discussed in detail questions were answered and we will proceed. Patient will avoid any aspirin or ibuprofen products 1 week prior surgery.
[2021-06-24] VITALS (9 sets, daily range): BP systolic 118–151; BP diastolic 75–86; PULSE 43–52; RESP 12–16; TEMP 36.1; O2SAT 99–100
--- NOTE | 2021-06-24 06:23 | WPDANESEPP ---
Anes - Eval Pre Procedure Procedure: Operation Date: 06/24/21 07:30 Proposed Procedures p A-1 Larissa Release Right Third and Fifth Fingers - Reg Thompson MD Date/Time: 06/24/21 06:23 Pre Op Diagnosis: right 3rd and 5th trigger finger Patient Data Age: 70 Gender: M Height: 1.73 m Weight: 70.35 kg Allergies Allergy/AdvReac Type Severity Reaction Status Date / Time Sulfa (Sulfonamide Allergy Intermediate Abdominal Verified 06/19/21 11:06 Antibiotics) Pain bee venom protein (honey bee) Allergy Unknown Swelling Verified 06/19/21 11:06 [bees] codeine Allergy Unknown Hives Verified 06/19/21 11:06 hydrocodone Allergy Unknown Hives Verified 06/19/21 11:06 morphine Allergy Unknown itching, Verified 06/19/21 11:06 nausea oxycodone Allergy Unknown Itching Verified 06/19/21 11:06 PENTAZOCINE LACTATE Allergy Unknown ITCHING Uncoded 06/19/21 11:06 Home Medications Medication Instructions Recorded Confirmed Type No Home Medications 06/19/21 06/19/21 History Patient hx anesthesia problems: none Family hx anesthesia problems: none Results Review: All pre-operative results and documents have been reviewed as part of the pre-operative evaluation. [facility] Past Medical History Medical History Anemia Arthritis Back pain Elevated PSA Encounter for screening colonoscopy Hyperlipidemia Kidney stone Overweight (BMI 25.0-29.9) Prostate CA (~10/11/20) Trigger finger Surgical History Surgical History H/O hernia repair H/O inguinal hernia repair H/O vasectomy History of total right knee replacement Family History Family History Father Diabetes mellitus Family history of coronary artery disease Mother Family history of malignant neoplasm of breast Social History Social History Smoking status: Never smoker Second hand tobacco smoke exposure: No Alcohol intake: current Drinks per week: 1 Alcohol use details: 1 BEER PER WEEK. Substance use: never Substance use type: does not use Living arrangements: with family Gender identity (if verbalized by the patient): Male Sexual Orientation (if Verbalized by the Patient): Straight or Heterosexual Spiritual care concerns: No Exam Day of Procedure 06/24/21 06:23
[2021-06-24] MEDS: ACETAMINOPHEN 500 MG TABLET 1000 MG PO (06:38)
[2021-06-24] MEDS: KETOROLAC 15 MG/ML VIAL (*BKC) IV PUSH (06:48)
[2021-06-24] MEDS: LACTATED RINGERS 1,000 ML 30 ML IV CONT (07:00)
--- NOTE | 2021-06-24 07:21 | WPDANESEPPF ---
Anes - Initial Pre Proc Eval Procedure: Operation Date: 06/24/21 07:30 Proposed Procedures p A-1 Larissa Release Right Third and Fifth Fingers - Reg Thompson MD Date/Time: 06/24/21 07:21 Surgeon: Reg Thompson MD Pre Op Diagnosis: right 3rd and 5th trigger finger Patient Data Age: 70 Gender: M Height: 1.73 m Weight: 72.4 kg Last Vital Signs Temp 36.1 C L 06/24/21 06:30 Pulse 52 L 06/24/21 06:30 Resp 16 06/24/21 06:30 BP 138/82 06/24/21 06:30 Pulse Ox 99 06/24/21 06:30 Allergies Allergy/AdvReac Type Severity Reaction Status Date / Time bee venom protein (honey bee) Allergy Severe Swelling Verified 06/24/21 06:35 [bees] codeine Allergy Intermediate Hives Verified 06/24/21 06:35 hydrocodone Allergy Intermediate Hives Verified 06/24/21 06:35 morphine Allergy Intermediate itching, Verified 06/24/21 06:35 nausea oxycodone Allergy Intermediate Itching Verified 06/24/21 06:35 pentazocine Allergy Intermediate Itching Verified 06/24/21 07:22 Sulfa (Sulfonamide Allergy Intermediate Abdominal Verified 06/19/21 11:06 Antibiotics) Pain Home Medications Medication Instructions Recorded Confirmed Type No Home Medications 06/19/21 06/24/21 History Patient hx anesthesia problems: none Family hx anesthesia problems: none Results Review: All pre-operative results and documents have been reviewed as part of the pre-operative evaluation. [facility] Past Medical History Medical History Anemia Arthritis Back pain Elevated PSA Encounter for screening colonoscopy Hyperlipidemia Kidney stone Overweight (BMI 25.0-29.9) Prostate CA (~10/11/20) Trigger finger Surgical History Surgical History H/O hernia repair H/O inguinal hernia repair H/O vasectomy History of total right knee replacement Family History Family History Father Diabetes mellitus Family history of coronary artery disease Mother Family history of malignant neoplasm of breast Social History Social History Smoking status: Never smoker Second hand tobacco smoke exposure: No Alcohol intake: current Drinks per week: 1 Alcohol use details: 1 BEER PER WEEK. Substance use: never Substance use type: does not use Living arrangements: with family Gender identity (if verbalized by the patient): Male Sexual Orientation (if Verbalized by the Patient): Straight or Heterosexual Spiritual care concerns: No Anes - Eval Final PreProcedure Day of Procedure 06/24/21 07:21 Patient weight: obese Heart: regular rate and rhythm Lungs: clear to auscultation and normal air movement Airway: Mallampati scale class II Neurological: alert and oriented Last oral intake: >/= 8 hours ASA classification: III Emergent: no Anesthetic plan: proceed Anesthesia type and monitoring: general GIVS Results Review: All pre-operative results and documents have been reviewed as part of the pre-operative evaluation. Informed Consent: The patient's anesthetic plan and its attendant risks and benefits were discussed with the patient/family/POA. Questions were solicited and answers provided to the satisfaction of the patient/family/POA.
--- NOTE | 2021-06-24 07:23 | WPDHPUPDATE1 ---
History and Physical Update Update Date/Time: 06/24/21 07:23 History and Physical has been reviewed, including an updated exam of the patient. There are NO changes in the patient's condition. Risks, benefits, and alternatives have been discussed and questions answered. Patient agrees to proceed with procedure.
[2021-06-24] MEDS: ceFAZolin 2 GM/D5W 50 ML 2 GM/50 ML BAG IVPB (07:30)
[2021-06-24] MEDS: LIDOCAINE HCL 1% PF 30 ML VIAL INFILTRATE (07:51)
--- NOTE | 2021-06-24 08:28 | P.OP_ITS ---
Procedure Note - Detailed Date of Procedure 06/24/21 Pre-op Diagnosis right 3rd and 5th trigger finger Post-op Diagnosis same Procedure Performed A1 tawanda release right 3rd and 5th digits. Surgeon Reg Thompson MD Visual Merchandising Assistant María Anesthesia general Description of Procedure Patient brought to the operating room and LMA general anesthesia administered. He received 2 g of Ancef preoperatively. The right arm was prepped draped usual fashion. Local anesthesia was administered with 1% plain lidocaine. A 1 cm longitudinal incision was made over the A1 tawanda of the 5th digit. Dissection was carried down to the A1 tawanda. The cleft between A1 and A2 tawanda was carefully identified and there was no accessory A1 tawanda visualized. The A1 tawanda was released from distal to proximal completing the release. There was a little bit of maceration of the volar central aspect of the tendon as we move the finger from flexion to extension we could see this but no evidence of catching. We performed the identical procedure in the identical fashion on the 3rd digit A1 tawanda another 1 cm incision made and a 1 tawanda released from distal to proximal from the cleft. The tourniquet was released. Hemostasis was achieved with about 5 minutes of pressure and the wounds irrigated with saline and closed with 4-0 nylon suture and a soft bulky dressing applied the patient transferred postop recovery room no normal condition. No complications. Estimated Blood Loss 5 Drains No Packing No Pathology none sent Complications No immediate complications Condition stable Disposition PACU
== END 2021-06-24 10:27 | disposition home or self-care (01) ==
PROVIDERS: PCP Family Medicine; Visit Provider Orthopaedic Surgery
PROC: (CPT 26055; principal; 2021-06-24 07:30)
DX: M65.331 Trigger finger, right middle finger (principal); M65.351 Trigger finger, right little finger
CPT/HCPCS: 26055 ×2; A9270; J0690; J1100; J1885; J2250; J2405; J2704; J3010; J7120

== ENCOUNTER 2021-08-19 01:15 | Day surgery (SDC) | payer MEDICARE, SELFPAY ==
[2021-08-09 11:00] VITALS: BMI 23.8
--- NOTE | 2021-08-09 11:10 | PC.NURSE ---
Report to the Outpatient Waiting Room, entrance under the green pavilion located off [facility], at time __9:30AM on date _08/19/21 . OR Time: __11:30AM . - You will be asked a series of questions to screen for COVID 19 for your protection. - A mask is required within the hospital. - No visitors are allowed at this time. Preoperative COVID Testing Requirements: No COVID Test needed if: (proof is required; if not received patient will have Rapid Test prior to entry) - Patient has received COVID Vaccine at least 14 days prior to procedure date or - Patient has positive COVID test result within last 90 days of surgery date. COVID Test needed if above criteria is not met If not COVID vaccinated a COVID test must be conducted within 72 hours of surgery and patient is asked to isolate self from time of testing until procedure. You will go to the [facility] for your COVID testing. [facility] is located at the corner of [address] from [facility]. You will only be called if COVID results are positive and your surgeon may reschedule your elective surgery date. Patients may have clear liquids (water, carbonated beverages, clear teas, apple juice) until 3 hours prior to surgery with a maximum of 20 ounces. - No food from midnight until time of surgery - Infants may have breast milk until 4 hours before surgery, infant formula 6 hours prior to surgery. - Children will be allowed to drink immediately following surgery. If applicable, please bring a bottle or sippy cup to assist with drinking. Juice, water, soda, and popsicles are readily available. For infants on formula, please bring formula the day of surgery. Pacifiers are allowed. Take the following medications with a SIP of water the morning of surgery: ___NONE Medications to discontinue per physician ALL VITAMINS/SUPPLEMENTS 3 DAYS PRE-OP Date to take last dose 08/15/21 Please no make-up, nail malay, hairspray, perfume, deodorant, or body powder the day of surgery. No jewelry (including any body piercings) or valuables the day of surgery, leave them at home. Please take a shower or bath the night before, or the morning of, surgery with an antibacterial soap. Wear comfortable, loose fitting clothing. Children are encouraged to wear pajamas. - Jewelry must be removed prior to entering the operating room. Rings and piercings that are not removed may be cut off. - The hospital will not accept responsibility for valuables. - Please leave all valuables, including medications, at home the day of surgery. If you are going home after surgery, a licensed limousine driver must drive you home. - NO public transportation without another adult. - We recommend that an adult stay with you for 24 hours following discharge. - We also recommend that you do not drive, make important decision, drink alcoholic beverages, or take any drugs that were not prescribed by your health care provider for at least 24 hours after your discharge time. For Pediatric surgeries, we recommend two adults accompany the child home (only one inside the building at this time). Follow any additional instructions given to you from your surgeon. Telephone instructions given to _PATIENT and asked if any additional questions and then verbalized understanding. Patient advised to call surgeon office or pre surgery nurse liaison [phone] if any additional questions.
--- NOTE | 2021-08-14 16:12 | PM.IMHP ---
H&P: HPI History of Present Illness Date/Time: 08/14/21 16:9005-[id number] male who presents today for A1 tawanda release his left 3rd and 5th finger. Patient has had his right 3rd and 5th finger A1 tawanda released done in June of 2021. his right hand is doing very well. His left hand is still bothering more regular basis. He has active triggering on a daily basis. It is rather painful for him. He feels this point is ready proceed with surgical release the A1 tawanda in the left 3rd and 5th finger. <DIVINE Stuart - Last Filed: 08/14/21 16:15> Chief Complaint: left 3rd and 5th finger trigger finger. <DIVINE Stuart - Last Filed: 08/14/21 16:15> Review of Systems Review of Systems: All systems reviewed & are unremarkable except as noted in HPI and below <DIVINE Stuart - Last Filed: 08/14/21 16:15> [facility] Past Medical History Medical History: Medical History (Updated 08/16/21 @ 09:17 by Jeanie Rico PA-C) Anemia Arthritis Back pain Elevated PSA Encounter for screening colonoscopy Hepatitis C antibody test negative (04/09/20) Hyperlipidemia Kidney stone Overweight (BMI 25.0-29.9) Prostate CA (~10/11/20) Trigger finger <DIVINE Stuart - Last Filed: 08/14/21 16:15> Surgical History Surgical History: Surgical History H/O hernia repair H/O inguinal hernia repair H/O prostatectomy 10/2020 H/O vasectomy History of carpal tunnel surgery 2020 History of total right knee replacement Status post trigger finger release (~06/24/21) <DIVINE Stuart - Last Filed: 08/14/21 16:15> Family History Family History: Family History Father Diabetes mellitus Family history of coronary artery disease Mother Family history of malignant neoplasm of breast <DIVINE Stuart - Last Filed: 08/14/21 16:15> Social History Social History: Social History Second hand tobacco smoke exposure: No Alcohol intake: current Drinks per week: 1 Alcohol use details: 1 BEER PER WEEK. Substance use: never Substance use type: does not use Living arrangements: with family Additional living arrangements comments: Occupation/Education: retired Gender identity (if verbalized by the patient): Male Sexual Orientation (if Verbalized by the Patient): Straight or Heterosexual Spiritual care concerns: No <DIVINE Stuart - Last Filed: 08/14/21 16:15> Meds Home Medications and Allergies Home medications: Home Medications Medication Instructions Recorded Confirmed Type cholecalciferol (vitamin D3) 50 mcg PO 3XW 08/09/21 08/16/21 History zinc 15 mg PO DAILY 08/09/21 08/16/21 History <DIVINE Stuart - Last Filed: 08/14/21 16:15> Allergies/Adverse reactions: Allergies Allergy/AdvReac Type Severity Reaction Status Date / Time bee venom protein (honey bee) Allergy Intermediate Swelling Verified 08/16/21 09:10 [bees] codeine Allergy Intermediate Hives Verified 08/16/21 09:10 hydrocodone Allergy Intermediate Hives Verified 08/16/21 09:10 morphine Allergy Intermediate itching, Verified 08/16/21 09:10 nausea oxycodone Allergy Intermediate Itching Verified 08/16/21 09:10 pentazocine Allergy Intermediate Itching Verified 08/16/21 09:10 Sulfa (Sulfonamide Allergy Intermediate Abdominal Verified 08/16/21 09:10 Antibiotics) Pain, HIVES <DIVINE Stuart Last Filed: 08/14/21 16:15> Exam Narrative: 70-year-old male alert pleasant. He has full range of motion of the left 3rd and 5th finger. He has moderate tenderness over the A1 tawanda of both these fingers. He has active triggering with range of motion both these fingers. He has no tenderness to the MP joints. No numbness or tingling in the fingers. 2+ radial pulse. <DIVINE Stuart - Last Filed:
[2021-08-19] VITALS (7 sets, daily range): BP systolic 108–137; BP diastolic 71–81; PULSE 47–55; RESP 10–14; TEMP 35.7–36.3; O2SAT 98–100
--- NOTE | 2021-08-19 07:56 | WPDANESEPPF ---
Anes - Initial Pre Proc Eval Procedure: Operation Date: 08/19/21 11:30 Proposed Procedures p A-1 Larissa Release Left Third and Fifth Trigger Finger - Reg Thompson MD Date/Time: 08/19/21 07:56 Surgeon: Reg Thompson MD Pre Op Diagnosis: Left 3rd & 5th trigger fingers Patient Data Age: 70 Gender: M Height: 1.73 m Weight: 71 kg Allergies Allergy/AdvReac Type Severity Reaction Status Date / Time bee venom protein (honey bee) Allergy Intermediate Swelling Verified 08/16/21 09:10 [bees] codeine Allergy Intermediate Hives Verified 08/16/21 09:10 hydrocodone Allergy Intermediate Hives Verified 08/16/21 09:10 morphine Allergy Intermediate itching, Verified 08/16/21 09:10 nausea oxycodone Allergy Intermediate Itching Verified 08/16/21 09:10 pentazocine Allergy Intermediate Itching Verified 08/16/21 09:10 Sulfa (Sulfonamide Allergy Intermediate Abdominal Verified 08/16/21 09:10 Antibiotics) Pain, HIVES Home Medications Medication Instructions Recorded Confirmed Type cholecalciferol (vitamin D3) 50 mcg PO 3XW 08/09/21 08/16/21 History zinc 15 mg PO DAILY 08/09/21 08/16/21 History Patient hx anesthesia problems: none Family hx anesthesia problems: none Results Review: All pre-operative results and documents have been reviewed as part of the pre-operative evaluation. [facility] Past Medical History Medical History (Updated 08/16/21 @ 09:17 by Jeanie Rico PA-C) Anemia Arthritis Back pain Elevated PSA Encounter for screening colonoscopy Hepatitis C antibody test negative (04/09/20) Hyperlipidemia Kidney stone Overweight (BMI 25.0-29.9) Prostate CA (~10/11/20) Trigger finger Surgical History Surgical History H/O hernia repair H/O inguinal hernia repair H/O prostatectomy 10/2020 H/O vasectomy History of carpal tunnel surgery 2020 History of total right knee replacement Status post trigger finger release (~06/24/21) Family History Family History Father Diabetes mellitus Family history of coronary artery disease Mother Family history of malignant neoplasm of breast Social History Social History Second hand tobacco smoke exposure: No Alcohol intake: current Drinks per week: 1 Alcohol use details: 1 BEER PER WEEK. Substance use: never Substance use type: does not use Living arrangements: with family Additional living arrangements comments: Occupation/Education: retired Gender identity (if verbalized by the patient): Male Sexual Orientation (if Verbalized by the Patient): Straight or Heterosexual Spiritual care concerns: No Anes - Eval Final PreProcedure Day of Procedure 08/19/21 07:56 Patient weight: normal Heart: regular rate and rhythm Lungs: clear to auscultation and normal air movement Airway: Mallampati scale class II Neurological: alert and oriented Last oral intake: >/= 8 hours ASA classification: III Emergent: no Anesthetic plan: proceed Anesthesia type and monitoring: general GIVS Results Review: All pre-operative results and documents have been reviewed as part of the pre-operative evaluation. Informed Consent: The patient's anesthetic plan and its attendant risks and benefits were discussed with the patient/family/POA. Questions were solicited and answers provided to the satisfaction of the patient/family/POA.
--- NOTE | 2021-08-19 10:32 | WPDHPUPDATE1 ---
History and Physical Update Update Date/Time: 08/19/21 10:32 History and Physical has been reviewed, including an updated exam of the patient. There are NO changes in the patient's condition. Risks, benefits, and alternatives have been discussed and questions answered. Patient agrees to proceed with procedure.
[2021-08-19] MEDS: ACETAMINOPHEN 500 MG TABLET 1000 MG PO (10:45)
[2021-08-19] MEDS: KETOROLAC 15 MG/ML VIAL (*BKC) IV PUSH (10:46)
[2021-08-19] MEDS: LACTATED RINGERS 1,000 ML 30 ML IV CONT (10:47)
[2021-08-19] MEDS: ceFAZolin 2 GM/D5W 50 ML 2 GM/50 ML BAG IVPB (11:14)
--- NOTE | 2021-08-19 11:55 | W.PM.PROC2 ---
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 He received 2 g of Ancef preoperatively. Local anesthesia was administered 1% lidocaine. A 1 cm longitudinal incision was made over the A1 tawanda of the 5th finger there are the small finger. Dissection was carried down to the tendon sheath which was very thickened. The distal margin the of the A1 tawanda the cleft between the A1 and A2 pulleys was carefully identified and was longitudinally incised from distal to proximal completing the released A1 tawanda. Again was very thickened. There was some central maceration and fraying of the center of the flexor tendons. The finger glided through full range of motion without triggering. The same procedure was performed of the long finger A1 tawanda. Additional 1% lidocaine local anesthesia was administered tourniquet was released hemostasis was achieved wound irrigated incisions closed with 5 0 nylon suture and a soft bulky dressing applied. Tourniquet Time 12 Drains No Packing No Pathology none sent Complications No immediate complications Condition stable Disposition PACU
== END 2021-08-19 14:05 | disposition home or self-care (01) ==
PROVIDERS: PCP Family Medicine; Visit Provider Orthopaedic Surgery
PROC: (CPT 26055; principal; 2021-08-19 11:30)
DX: M65.332 Trigger finger, left middle finger (principal); M65.352 Trigger finger, left little finger; E78.5 Hyperlipidemia, unspecified; D64.9 Anemia, unspecified; M19.90 Unspecified osteoarthritis, unspecified site; Z85.46 Personal history of malignant neoplasm of prostate
CPT/HCPCS: 26055 ×2; A9270; J0690; J1100; J1885; J2250; J2405; J2704; J3010; J7120

== ENCOUNTER 2022-10-26 18:49 | Emergency (ER) | payer MEDICARE, SELFPAY ==
[2022-10-26 18:59] VITALS: BP 132/82; PULSE 59; RESP 18; TEMP 36.7; O2SAT 96
[2022-10-26] MEDS: IBUPROFEN 400 MG TABLET 800 MG PO (19:44)
[2022-10-26] MEDS: ACETAMINOPHEN 500 MG TABLET 1000 MG PO (19:45)
[2022-10-26] MEDS: CEPHALEXIN 500 MG CAPSULE PO (19:46)
--- NOTE | 2022-10-26 20:49 | ED.GENADULT ---
HPI - General Adult General Chief complaint: Wound/Laceration Stated complaint: splinter - right hand Time Seen by Provider: 10/26/22 19:04 History of Present Illness HPI narrative: This is a 72-year-old male presenting ED with a chief complaint of a splinter in his in his hand. He is working with lumbar on Thursday when he believes he got a splinter. He is unable to get it out. Now is having pain and swelling in his hand. No systemic signs of illness. Related Data Home Medications Medication Instructions Recorded Confirmed cholecalciferol (vitamin D3) 50 50 mcg PO 3XW 08/09/21 06/18/22 mcg (2,000 unit) capsule zinc 15 mg tablet 15 mg PO DAILY 08/09/21 06/18/22 Allergies Allergy/AdvReac Type Severity Reaction Status Date / Time bee venom protein (honey bee) Allergy Intermediate Swelling Verified 10/26/22 19:38 [bees] codeine Allergy Intermediate Hives Verified 10/26/22 19:38 hydrocodone Allergy Intermediate Hives Verified 10/26/22 19:38 morphine Allergy Intermediate itching, Verified 10/26/22 19:38 nausea oxycodone Allergy Intermediate Itching Verified 10/26/22 19:38 pentazocine Allergy Intermediate Itching Verified 10/26/22 19:38 Sulfa (Sulfonamide Allergy Intermediate Abdominal Verified 10/26/22 19:38 Antibiotics) Pain, HIVES PMFSH Past Medical History Medical History Anemia Arthritis Back pain Elevated PSA Encounter for screening colonoscopy Hepatitis C antibody test negative (04/09/20) Hyperlipidemia Kidney stone Overweight (BMI 25.0-29.9) Prostate CA (~10/11/20) Trigger finger Surgical History Surgical History H/O hernia repair H/O inguinal hernia repair H/O prostatectomy 10/2020 H/O vasectomy History of carpal tunnel surgery 2020 History of total right knee replacement Status post trigger finger release (~06/24/21) Family History Family History Father Diabetes mellitus Family history of coronary artery disease Mother Family history of malignant neoplasm of breast Social History Social History Smoking status: Former smoker Second hand tobacco smoke exposure: No Alcohol intake: current Drinks per week: 1 Alcohol use details: 1 BEER PER WEEK. Substance use: never Substance use type: does not use Lack of Transportation: No Lack of Food: Never True Current Housing: I Have Housing Concerned About Future Housing: No Difficulty Paying Gas/Electric Bills: No Difficulty Paying for Meds: No Currently Unemployed: No Education: Bachelor's Degree Difficulty w/ Childcare or Family Care: No Living arrangements: with family Additional living arrangements comments: Occupation/Education: retired Gender identity (if verbalized by the patient): Male Sexual Orientation (if Verbalized by the Patient): Straight or Heterosexual Spiritual care concerns: No Exam Narrative: APPEARANCE: No apparent distress. Head: atraumatic. EYES: EOMI, NOSE: Atraumatic NECK: Trachea midline RESPIRATORY: No increased rate of breathing CARDIOVASCULAR: RRR, ABDOMINAL: Non-distended MUSCULOSKELETAl: Focal exam of the hand revealed a small lesion over the thenar eminence with erythema. No protruding foreign body NEURO: Alert. Moving 4/4 extremities SKIN:: Warm, dry. Normal color PSYCHIATRIC: Normal affect Course Vital Signs Vital signs: Vital Signs Temperature 98.1 F 10/26/22 18:59 Pulse Rate 59 L 10/26/22 18:59 Respiratory Rate 18 10/26/22 18:59 Blood Pressure 132/82 10/26/22 18:59 Pulse Oximetry 96 10/26/22 18:59 Oxygen Delivery Room Air 10/26/22 18:59 Temperature 98.1 F 10/26/22 18:59 Pulse Rate 59 L 10/26/22 18:59 Respiratory Rate 18 10/26/22 18:59 Blood Pressure 132/82 10/26/22 18:59 Pulse Oxim
[2022-10-26 20:57] VITALS: BP 140/80; PULSE 59; RESP 18; O2SAT 98
== END 2022-10-26 21:55 | disposition home or self-care (01) ==
PROVIDERS: Emergency Provider Emergency Medicine; PCP Family Medicine
DX: S60.551A Superficial foreign body of right hand, initial encounter (principal); L02.511 Cutaneous abscess of right hand; L03.113 Cellulitis of right upper limb; E78.5 Hyperlipidemia, unspecified; E66.3 Overweight; Z68.23 Body mass index [BMI] 23.0-23.9, adult; M19.90 Unspecified osteoarthritis, unspecified site; Z96.651 Presence of right artificial knee joint; Z85.46 Personal history of malignant neoplasm of prostate; Z87.442 Personal history of urinary calculi; Z86.2 Personal history of diseases of the blood and blood-forming organs and certain disorders involving the immune mechanism; Z87.891 Personal history of nicotine dependence; Z90.79 Acquired absence of other genital organ(s); W45.8XXA Other foreign body or object entering through skin, initial encounter
CPT/HCPCS: 10120; 10121; 99283; A9270

== ENCOUNTER 2022-12-22 09:33 | Outpatient (CLI) | payer MEDICARE, SELFPAY ==
--- NOTE | 2022-12-22 09:56 | ECHO_ITS ---
Patient Info Name: Shayan Villalobos Age: 72 years : 1950 Gender: Male Ht: 68 in Wt: 158 lbs BSA: 1.86 m2 HR: 78 bpm BP: 129 / 68 mmHg Technical Quality: Good Exam Date: 12/22/2022 10:04 AM Exam Location: [facility] Patient Status: Outpatient Admit Date: 12/22/2022 Staff Ordering Physician: Mitesh Bhandari PA-C Analytical Data Miner: Gaye Mendez RDCS Attending Provider: Mitesh Bhandari PA-C Referring Physician: Thony JAMES; Exam Type: CA echo doppler color flow Study Info Indications - EVAL CARDIAC MURMUR R01.1 - Cardiac murmur, unspecified Complete two-dimensional, color flow and Doppler transthoracic echocardiogram is performed. Summary 1. Complete two-dimensional, color flow and Doppler transthoracic echocardiogram is performed. 2. Left ventricular chamber dimension is normal. 3. Left ventricular systolic function is normal, estimated at 65-70%. 4. The left ventricular diastolic function is grade I diastolic dysfunction. 5. E/e' 7 is not elevated. 6. Left atrial chamber dimension is mildly enlarged. 7. There is moderate aortic valve sclerosis. 8. There is mild aortic valve stenosis with a peak velocity of 251 cm/s, mean gradient of 12 mmHg, and aortic valve area of 1.8 cm2. 9. No pulmonary hypertension, estimated pulmonary arterial systolic pressure is 31 mmHg. Left Ventricle E/e' 7 is not elevated. Left ventricular chamber dimension is normal. Left ventricular systolic function is normal, estimated at 65-70%. The left ventricular diastolic function is grade I diastolic dysfunction. Right Ventricle Right ventricular chamber dimension is normal. Right ventricular systolic function is normal. Left Atria Left atrial chamber dimension is mildly enlarged. Right Atria Right atrial chamber dimension is normal. Aortic Valve The aortic valve is trileaflet. There is moderate aortic valve sclerosis. There is mild aortic valve stenosis with a peak velocity of 251 cm/s, mean gradient of 12 mmHg, and aortic valve area of 1.8 cm2. There is no aortic valve regurgitation. Pulmonic Valve There is no pulmonic regurgitation. Mitral Valve There is no mitral valve stenosis. There is no mitral valve regurgitation. Tricuspid Valve There is no tricuspid valve regurgitation. No pulmonary hypertension, estimated pulmonary arterial systolic pressure is 31 mmHg. Pericardium/Pleural There is no pericardial effusion. Inferior Vena Cava Normal inferior vena cava with >50% collapse upon inspiration consistent with normal right atrial pressure, 5 mmHg. Aorta The aortic root size at the sinus of Valsalva is normal. Left Ventricular Outflow Tract Name Value Normal LVOT 2D LVOT Diameter 2.0 cm LVOT Doppler LVOT Peak Gradient 5 mmHg LVOT Mean Gradient 3 mmHg LVOT VTI 29 cm LVOT VTI/AV VTI Ratio 0.5 LVOT Stroke Volume 94 ml LVOT CO 15.9 l/min LVOT CI 8.5 l/min/m2 Pulmonic Valve Name
== END 2022-12-22 09:34 | disposition home or self-care (01) ==
LOC: ANHCARD 09:34
PROVIDERS: PCP Family Medicine; Visit Provider Physician Assistant
DX: R01.1 Cardiac murmur, unspecified (principal); Z12.11 Encounter for screening for malignant neoplasm of colon; R93.1 Abnormal findings on diagnostic imaging of heart and coronary circulation
CPT/HCPCS: 93306

== ENCOUNTER 2023-08-20 06:46 | Outpatient (CLI) | payer MEDICARE, SELFPAY ==
--- NOTE | ~2023-08-20 | CT_ITS ---
CT of the Abdomen and Pelvis: Indication: Hematuria Technique: 2.5 mm axial scans were obtained through the abdomen and pelvis prior to and following fo llowing intravenous administration of 130 cc of Omnipaque 350. Dose reduction technique was used on t his scan by utilizing automated exposure control and iterative reconstruction technique. The dose-henrry gth product (DLP) was 1045.17 mGy-cm. COMPARISON: 08/09/2020 Findings: Scans through the lung bases are unremarkable. The liver, spleen, pancreas, and adrenal glands are within normal limits. 7 mm nonobstructing stone p resent in the right renal pelvis. Additional 5 mm nonobstructing right renal stone present. Punctate nonobstructing left renal stone present. No hydronephrosis. Small gallstone present. No evidence of a ortic aneurysm. No lymphadenopathy. No bowel obstruction or bowel wall thickening. There is no evidence to suggest acute appendicitis. Images through the pelvis were performed. Urinary bladder unremarkable. No pelvic mass seen. No ascit es. Small right hydrocele noted. Impression: Nephrolithiasis bilaterally, as detailed above. Small right hydrocele. Cholelithiasis. Reviewed, dictated and finalized at location . H SANDER Impression: Nephrolithiasis bilaterally, as detailed above. Small right hydrocele. Cholelithiasis.
--- NOTE | ~2023-08-20 | XR_ITS ---
EXAMINATION: XR abdomen/kub 1V DATE: 08/20/2023 07:03 INDICATION: Gross hematuria. TECHNIQUE: A supine view of the abdomen on 2 radiographs was obtained. COMPARISON: CT abdomen and pelvis 08/20/2023 FINDINGS: There are no dilated loops of bowel. The kidneys are obscured by bowel. There are 6 mm and 4 mm stones in right renal pelvis. IMPRESSION: 1. Stones in right renal pelvis. Reviewed, dictated and finalized at location A. 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
== END 2023-08-20 06:47 | disposition home or self-care (01) ==
LOC: ANHIMG 06:49
PROVIDERS: PCP Family Medicine; Visit Provider Urology
DX: R31.9 Hematuria, unspecified (principal); N20.0 Calculus of kidney; N43.3 Hydrocele, unspecified; K80.20 Calculus of gallbladder without cholecystitis without obstruction
CPT/HCPCS: 74018; 74178; Q9967

== ENCOUNTER 2023-10-09 08:56 | Outpatient (CLI) | payer MEDICARE, SELFPAY ==
[2023-10-09 09:33] LABS: INR 0.9; Prothrombin Time 12.8 Seconds (11.1-14.7)
[2023-10-09 09:34] LABS: Partial Thromboplastin Time 24.5 Seconds (22.3-36.8)
== END 2023-10-09 08:57 | disposition home or self-care (01) ==
LOC: ANHSURGERY 08:59
PROVIDERS: PCP Family Medicine; Visit Provider Urology
DX: Z01.818 Encounter for other preprocedural examination (principal); N20.0 Calculus of kidney
CPT/HCPCS: 36415; 85610; 85730; 87086

== ENCOUNTER 2023-10-16 00:13 | Day surgery (SDC) | payer MEDICARE, SELFPAY ==
[2023-10-08 08:11] VITALS: BMI 24.3
--- NOTE | 2023-10-08 08:23 | PC.NURSE ---
PRE-OP INSTRUCTIONS, PLEASE READ CAREFULLY Report to the Outpatient Waiting Room, entrance under the green pavilion located off [facility], at time _0600_ on date _10/16/23_. Planned Procedure Time: _0730_. Time changes happen often and if your time is changed the preop area will call you the afternoon before. - You and your visitor will be asked to self-screen and do not enter if you have any COVID symptoms. - A mask is optional within the hospital at this time. Patients may have clear liquids (water, carbonated beverages, clear teas, apple juice) until 3 hours prior to surgery (0430 AM) with a maximum of 20 ounces. - No food from midnight until time of surgery Take the following medications with a SIP of water the morning of surgery: _NONE_ DO NOT STOP ANY OF YOUR OTHER PRESCRIPTION MEDICATIONS PRIOR TO SURGERY ?EXCEPT THE FOLLOWING Medications to discontinue - _IBUPROFEN PER DR. ARROYO'S INSTRUCTIONS_ Medications to discontinue per ANESTHESIA -_VITAMIN D 3 DAYS PRIOR TO SURGERY, Date to take last dose 10/12/23_ Please no make-up, nail ethiopian, hairspray, perfume, deodorant, or body powder the day of surgery. No jewelry (including any body piercings) or valuables the day of surgery, leave them at home. Please take a shower or bath the night before, or the morning of, surgery with an antibacterial soap. Wear comfortable, loose fitting clothing. - Jewelry must be removed prior to entering the operating room. Rings and piercings that are not removed may be cut off. - The hospital will not accept responsibility for valuables. - Please leave all valuables, including medications, at home the day of surgery. If you are going home after surgery, a licensed spotter driver must drive you home. - NO public transportation without another adult if you receive anesthesia. - We recommend that an adult stay with you for 24 hours following discharge. - We also recommend that you do not drive, make important decision, drink alcoholic beverages, or take any drugs that were not prescribed by your health care provider for at least 24 hours after your discharge time. Follow any additional instructions given to you from your surgeon. If you or anyone in your household have experienced Covid symptoms in the past week, please notify your surgeon or the nurse liaison at the phone number below for possible testing. Telephone instructions given to _PATIENT_and asked if any additional questions and then verbalized understanding. Patient advised to call surgeon office or pre surgery nurse liaison [phone] if any additional questions.
[2023-10-16] VITALS (8 sets, daily range): BP systolic 125–160; BP diastolic 71–91; PULSE 54–75; RESP 12–20; TEMP 36.1–36.3; O2SAT 98–100
--- NOTE | ~2023-10-16 | XR_ITS ---
EXAMINATION: XR abdomen/kub 1V DATE: 10/16/2023 06:22 INDICATION: Kidney stone. TECHNIQUE: A supine view of the abdomen on 2 radiographs was obtained. COMPARISON: Abdomen radiographs 08/20/2023, CT abdomen and pelvis 08/20/2023 FINDINGS: There are no dilated loops of bowel. There is a 7 mm stone in the right renal pelvis. IMPRESSION: 1. 7 mm stone in the right renal pelvis. Reviewed, dictated and finalized at location A.
--- NOTE | 2023-10-16 06:45 | WPDANESEPPF ---
Anes - Initial Pre Proc Eval Procedure: Operation Date: 10/16/23 07:30 Proposed Procedures p Right Extracorporeal Shock Wave Lithotripsy - Elvis Rosales MD Date/Time: 10/16/23 06:45 Surgeon: Elvis Rosales MD Pre Op Diagnosis: Right Ureteral Stone Patient Data Age: 72 Gender: M Height: 1.73 m Weight: 72.72 kg Allergies Allergy/AdvReac Type Severity Reaction Status Date / Time bee venom protein (honey bee) Allergy Intermediate Swelling Verified 10/16/23 06:31 [bees] codeine Allergy Intermediate Hives Verified 10/16/23 06:31 hydrocodone Allergy Intermediate Hives Verified 10/16/23 06:31 morphine Allergy Intermediate itching, Verified 10/16/23 06:31 nausea oxycodone Allergy Intermediate Itching Verified 10/16/23 06:31 pentazocine Allergy Intermediate Itching Verified 10/16/23 06:31 Sulfa (Sulfonamide Allergy Intermediate Abdominal Verified 10/16/23 06:31 Antibiotics) Pain, HIVES Home Medications Medication Instructions Recorded Confirmed Type cholecalciferol (vitamin D3) 50 50 mcg PO DAILY 10/08/23 10/16/23 History mcg (2,000 unit) tablet ibuprofen 200 mg tablet See Rx Instructions .Route 10/08/23 10/16/23 History .COMPLEX PRN Pain Patient hx anesthesia problems: none Family hx anesthesia problems: none Results Review: All pre-operative results and documents have been reviewed as part of the pre-operative evaluation. [facility] Past Medical History Medical History Anemia Arthritis Back pain Elevated PSA Encounter for screening colonoscopy Hepatitis C antibody test negative (04/09/20) Hyperlipidemia Kidney stone Overweight (BMI 25.0-29.9) Prostate CA (~10/11/20) Trigger finger Surgical History Surgical History H/O hernia repair H/O inguinal hernia repair H/O prostatectomy 10/2020 H/O vasectomy History of carpal tunnel surgery 2020 History of total right knee replacement Status post trigger finger release (~06/24/21) Family History Family History Father Diabetes mellitus Family history of coronary artery disease Mother Family history of malignant neoplasm of breast Social History Social History Smoking status: Never smoker Second hand tobacco smoke exposure: No Alcohol intake: current Drinks per week: 1 Alcohol use details: BEER Substance use: never Substance use type: does not use Lack of Transportation: No Lack of Food: Never True Current Housing: I Have Housing Concerned About Future Housing: No Difficulty Paying Gas/Electric Bills: No Difficulty Paying for Meds: No Currently Unemployed: No Education: Bachelor's Degree Difficulty w/ Childcare or Family Care: No Living arrangements: with family Additional living arrangements comments: Occupation/Education: retired Gender identity (if verbalized by the patient): Male Sexual Orientation (if Verbalized by the Patient): Straight or Heterosexual Spiritual care concerns: No Anes - Eval Final PreProcedure Day of Procedure 10/16/23 06:45 Patient weight: normal Heart: regular rate and rhythm Lungs: clear to auscultation Airway: Mallampati scale class II Neurological: alert and oriented Last oral intake: >/= 8 hours ASA classification: III Emergent: no Anesthetic plan: proceed Anesthesia type and monitoring: general LMA and standard monitoring Results Review: All pre-operative results and documents have been reviewed as part of the pre-operative evaluation. Informed Consent: The patient's anesthetic plan and its attendant risks and benefits were discussed with the patient/family/POA. Questions were solicited and answers provided to the satisfaction of the patient/family/POA.
[2023-10-16] MEDS: LACTATED RINGERS 1,000 ML 30 ML IV CONT (07:05)
--- NOTE | 2023-10-16 07:18 | PM.IMHP ---
H&P: HPI History of Present Illness Date/Time: 10/16/23 07:18 Chief Complaint: right renal calculus Narrative: 72 yr old with right renal stone. Presents for eswl of the stone Review of Systems Review of Systems: All systems reviewed & are unremarkable except as noted in HPI and below PMFSH Past Medical History Medical History Anemia Arthritis Back pain Elevated PSA Encounter for screening colonoscopy Hepatitis C antibody test negative (04/09/20) Hyperlipidemia Kidney stone Overweight (BMI 25.0-29.9) Prostate CA (~10/11/20) Trigger finger Surgical History Surgical History H/O hernia repair H/O inguinal hernia repair H/O prostatectomy 10/2020 H/O vasectomy History of carpal tunnel surgery 2020 History of total right knee replacement Status post trigger finger release (~06/24/21) Family History Family History Father Diabetes mellitus Family history of coronary artery disease Mother Family history of malignant neoplasm of breast Social History Social History Smoking status: Never smoker Second hand tobacco smoke exposure: No Alcohol intake: current Drinks per week: 1 Alcohol use details: BEER Substance use: never Substance use type: does not use Lack of Transportation: No Lack of Food: Never True Current Housing: I Have Housing Concerned About Future Housing: No Difficulty Paying Gas/Electric Bills: No Difficulty Paying for Meds: No Currently Unemployed: No Education: Bachelor's Degree Difficulty w/ Childcare or Family Care: No Living arrangements: with family Additional living arrangements comments: Occupation/Education: retired Gender identity (if verbalized by the patient): Male Sexual Orientation (if Verbalized by the Patient): Straight or Heterosexual Spiritual care concerns: No Meds Home Medications and Allergies Home Medications Medication Instructions Recorded Confirmed Type cholecalciferol (vitamin D3) 50 50 mcg PO DAILY 10/08/23 10/16/23 History mcg (2,000 unit) tablet ibuprofen 200 mg tablet See Rx Instructions .Route 10/08/23 10/16/23 History .COMPLEX PRN Pain Allergies Allergy/AdvReac Type Severity Reaction Status Date / Time bee venom protein (honey bee) Allergy Intermediate Swelling Verified 10/16/23 06:31 [bees] codeine Allergy Intermediate Hives Verified 10/16/23 06:31 hydrocodone Allergy Intermediate Hives Verified 10/16/23 06:31 morphine Allergy Intermediate itching, Verified 10/16/23 06:31 nausea oxycodone Allergy Intermediate Itching Verified 10/16/23 06:31 pentazocine Allergy Intermediate Itching Verified 10/16/23 06:31 Sulfa (Sulfonamide Allergy Intermediate Abdominal Verified 10/16/23 06:31 Antibiotics) Pain, HIVES Exam Const: General: cooperative and comfortable HENMT: Head: normal to inspection Neck: Neck: normal visual inspection Chest: Chest palpation & inspection: normal inspection of the chest Resp: Effort & Inspection: normal respiratory effort Cardio: Rate: regular rate Rhythm: regular rhythm GI: Inspection: normal to inspection Assessment and Plan Assessment and plan (1) Right renal stone: Code(s): N20.0 - Calculus of kidney Status: Acute Assessment and Plan: eswl right renal calculus.
--- NOTE | 2023-10-16 07:20 | WPDHPUPDATE1 ---
History and Physical Update Update Date/Time: 10/16/23 07:20 History and Physical has been reviewed, including an updated exam of the patient. There are NO changes in the patient's condition. Risks, benefits, and alternatives have been discussed and questions answered. Patient agrees to proceed with procedure. Proceed with right renal eswl
[2023-10-16] MEDS: ceFAZolin 2 GM/D5W 50 ML 2 GM/50 ML BAG IVPB (07:26)
--- NOTE | 2023-10-16 08:18 | W.PM.PROC2 ---
Procedure Note - Detailed Date of Procedure 10/16/23 Pre-op Diagnosis Right renal Stone Post-op Diagnosis Same Procedure Performed Lithotripsy of right renal calculus -7 mm Surgeon Elvis Rosales MD Anesthesia General Description of Procedure Patient was taken to the operative suite correctly identified. Once anesthesia was obtained was placed in the supine position the stone was localized in both planes. Two thousand five hundred shocks were given the stone. There appeared to be fairly good fragmentation. Patient tolerated procedure well without any complications and was taken recovery stable condition. This completes dictation. Please send a copy 5 to my office. Estimated Blood Loss 0 Drains No Packing No Pathology None sent Complications No immediate complications Condition Stable Disposition PACU
== END 2023-10-16 09:53 | disposition home or self-care (01) ==
PROVIDERS: PCP Family Medicine; Visit Provider Urology
PROC: (CPT 50590; principal; 2023-10-16 07:30)
DX: N20.0 Calculus of kidney (principal)
CPT/HCPCS: 50590; 74018; J0690; J1100; J1596; J2405; J2704; J3010; J7120

== ENCOUNTER 2023-10-17 17:24 | Emergency (ER) | payer MEDICARE, SELFPAY ==
[2023-10-17] VITALS (9 sets, daily range): BP systolic 140; BP diastolic 84; PULSE 59–75; RESP 13–19; TEMP 36.4; O2SAT 95–100
--- NOTE | ~2023-10-17 | CT_ITS ---
EXAMINATION: CT abdomen pelvis w con DATE: 10/17/2023 20:58 INDICATION: Right flank pain. TECHNIQUE: Computed tomography (CT) of the abdomen and pelvis was performed with 100 mL Omnipaque 350 intravenous contrast. Automated exposure control and iterative reconstruction technique were employe d. The dose-length product was 321.19 mGy-cm. COMPARISON: CT abdomen and pelvis 08/20/2023 FINDINGS: The visualized portions of the lung bases demonstrate mild atelectasis. No pleural effusion . The heart size is normal. No pericardial effusion. There is a 6 mm cyst in the liver. The gallbladd er, spleen, pancreas, and adrenal glands are normal. There is a 16 mm cyst in right kidney. There is a 3 mm stone in right kidney. There is a 5 mm stone in right renal pelvis. There is mild right hydron ephrosis and proximal hydroureter. There is a cluster of stones measuring up to 4 mm in proximal righ t ureter. There is asymmetric edema in the right retroperitoneum. Left kidney is normal. There are no dilated loops of bowel. The appendix is normal. There are no pathologically enlarged lymph nodes. Th ere is no free intraperitoneal fluid. There is thoracolumbar dextroscoliosis and severe lumbar spondy losis. IMPRESSION: 1. Cluster of stones measuring up to 4 mm in proximal right ureter with mild right hydronephrosis and proximal hydroureter. 2. Nonobstructing right kidney stones. Reviewed, dictated and finalized at location E. IMPRESSION: 1. Cluster of stones measuring up to 4 mm in proximal right ureter with mild ri ght hydronephrosis and proximal hydroureter. 2. Nonobstructing right kidney stones.
--- NOTE | 2023-10-17 19:29 | PC.NURSE ---
this rn assumed care of patient. this rn took patient report from HORACIO Cia.
--- NOTE | 2023-10-17 19:41 | ED.GENADULT ---
HPI - General Adult General Chief complaint: Urogenital-Male Stated complaint: Kidney Stones Time Seen by Provider: 10/17/23 18:37 Source: patient Mode of arrival: ambulatory Limitations: no limitations History of Present Illness HPI narrative: this is a 72-year-old male who presents to the ED with chief complaint of right flank pain beginning around 1430 this afternoon. status post lithotripsy day [address] Rosales yesterday. reports that this morning he was starting to feel better and noticed that he did pass a stone fragment. He states this afternoon he started constant right pain and intermittent nausea. Denies fevers, chills, troubles with bowel movements, chest pain, shortness of breath. Related Data Home Medications Medication Instructions Recorded Confirmed cholecalciferol (vitamin D3) 50 50 mcg PO DAILY 10/08/23 10/16/23 mcg (2,000 unit) tablet ibuprofen 200 mg tablet See Rx Instructions .Route 10/08/23 10/16/23 .COMPLEX PRN Pain Allergies Allergy/AdvReac Type Severity Reaction Status Date / Time bee venom protein (honey bee) Allergy Intermediate Swelling Verified 10/16/23 06:31 [bees] codeine Allergy Intermediate Hives Verified 10/16/23 06:31 hydrocodone Allergy Intermediate Hives Verified 10/16/23 06:31 morphine Allergy Intermediate itching, Verified 10/16/23 06:31 nausea oxycodone Allergy Intermediate Itching Verified 10/16/23 06:31 pentazocine Allergy Intermediate Itching Verified 10/16/23 06:31 Sulfa (Sulfonamide Allergy Intermediate Abdominal Verified 10/16/23 06:31 Antibiotics) Pain, HIVES Review of Systems Review of Systems: All systems as dictated in HPI FORMERLY [facility] Past Medical History Medical History Anemia Arthritis Back pain Elevated PSA Encounter for screening colonoscopy Hepatitis C antibody test negative (04/09/20) Hyperlipidemia Kidney stone Overweight (BMI 25.0-29.9) Prostate CA (~10/11/20) Trigger finger Surgical History Surgical History H/O hernia repair H/O inguinal hernia repair H/O prostatectomy 10/2020 H/O vasectomy History of carpal tunnel surgery 2020 History of total right knee replacement Status post trigger finger release (~06/24/21) Family History Family History Father Diabetes mellitus Family history of coronary artery disease Mother Family history of malignant neoplasm of breast Social History Social History Smoking status: Never smoker Second hand tobacco smoke exposure: No Alcohol intake: current Drinks per week: 1 Alcohol use details: BEER Substance use: never Substance use type: does not use Lack of Transportation: No Lack of Food: Never True Current Housing: I Have Housing Concerned About Future Housing: No Difficulty Paying Gas/Electric Bills: No Difficulty Paying for Meds: No Currently Unemployed: No Education: Bachelor's Degree Difficulty w/ Childcare or Family Care: No Living arrangements: with family Additional living arrangements comments: Occupation/Education: retired Gender identity (if verbalized by the patient): Male Sexual Orientation (if Verbalized by the Patient): Straight or Heterosexual Spiritual care concerns: No Exam Narrative: GENERAL: Well-appearing, well-nourished, and in no acute distress. HEAD: Normocephalic, atraumatic. EYES: PERRLA and EOMI. ENT: Nares clear, no rhinorrhea or epistaxis. Mucous membranes moist. Oropharynx without tonsillar hypertrophy exudate or other lesions. NECK: Supple. No adenopathy or masses. CHEST: No respiratory distress. Clear to auscultation. No wheezes rales or rhonchi HEART: Regular rate and rhythm. No murmur heard. Normal peripheral pulses. ABDOMEN: Right flank tendernes
[2023-10-17] MEDS: ONDANSETRON INJ 4 MG/2 ML VIAL IV PUSH (19:52)
[2023-10-17] MEDS: SODIUM CHLORIDE 0.9% IV 1,000 ML 999 ML IV CONT (19:52)
[2023-10-17] MEDS: HYDROmorphone HCL INJ (*CRX) 1 MG/ML SYR 0.5 MG IV PUSH (19:53)
[2023-10-17 20:14] LABS: Appearance Urine Turbid (Clear); Bacteria Urine None Seen /hpf; Bilirubin Urine Negative (Negative); Blood Urine 3+ (Negative); Color Urine Yellow (Yellow); Glucose Urine UA Negative (Negative); Ketones Urine 1+ mg/dL (Negative); Leukocyte Esterase Ur Negative LEU/UL (Negative); Nitrate Urine Negative (Negative); Non Pathogenic Casts 0-2; Protein Urine Negative (Negative); RBC Urine >100 /hpf (0-2); Specific Grav Ur 1.014 (1.001-1.035); Squamous Epithelial Cell Urine None Seen /hpf (Few); Urobilinogen Urine 0.2 mg/dL (<2.0); WBC Urine 0-5 /hpf (0-3)
[2023-10-17 20:19] LABS: Add Urine Microscopic? YES
[2023-10-17 20:27] LABS: Basophils Percent Auto 0.4 % (0.2-1.2); Eosinophils Percent Auto 0.2 % (0-4.4); Hematocrit 36.4 % (42.0-52.0); Hemoglobin 12.3 g/dL (14.0-18.0); Immature Granulocyte Absolute 0.03 K/mm3 (0.00-0.031); Immature Granulocyte Percent A 0.3 % (0-0.5); Lymphocytes Percent Auto 6.3 % (18.3-44.2); Mean Corpuscular HGB Conc 33.8 g/dl (32-36); Mean Corpuscular Hemoglobin 29.4 pg (26-34); Mean Corpuscular Volume 87.1 fl (80-100); Mean Platelet Volume 9.3 fl (7.4-10.4); Monocytes Absolute Auto 0.7 K/mm3 (0.1-0.6); Monocytes Percent Auto 7.5 % (2.6-8.5); Neutrophils Absolute Auto 8.2 K/mm3 (1.3-6.7); Neutrophils Percent Auto 85.3 % (45.5-73.1); Platelet Count Result 191 k/mm3 (150-375); Red Blood Count 4.18 M/mm3 (4.6-6.20); White Blood Count 9.6 K/mm3 (4.5-10.0)
[2023-10-17 20:36] LABS: Alanine Aminotransferase 19 U/L (6-50); Albumin Level 4.2 g/dL (3.5-5.1); Alkaline Phosphatase 62 U/L (38-126); Anion Gap 5 mmol/L (4-12); Aspartate Amino Transferase 36 U/L (17-59); Bilirubin,Total 0.6 mg/dL (0.2-1.3); Blood Urea Nitrogen 18 mg/dL (9-20); Calcium 9.2 mg/dL (8.4-10.2); Carbon Dioxide 24 mmol/L (22-30); Chloride 109 mmol/L (98-107); Estimated CRCL calculation 65 ml/min; Estimated Glomerular Filt Rate > 60; Glucose 108 mg/dL (65-110); Potassium 3.6 mmol/L (3.4-5.0); Sodium 138 mmol/L (137-145)
[2023-10-17] MEDS: KETOROLAC 15 MG/ML VIAL (*BKC) IV PUSH (21:34)
== END 2023-10-17 22:59 | disposition home or self-care (01) ==
PROVIDERS: Emergency Provider Physician Assistant; PCP Family Medicine
DX: N13.2 Hydronephrosis with renal and ureteral calculous obstruction (principal); D64.9 Anemia, unspecified; M19.90 Unspecified osteoarthritis, unspecified site; E78.5 Hyperlipidemia, unspecified; E66.3 Overweight; Z68.24 Body mass index [BMI] 24.0-24.9, adult; Z96.651 Presence of right artificial knee joint; Z85.46 Personal history of malignant neoplasm of prostate; Z87.442 Personal history of urinary calculi; Z90.79 Acquired absence of other genital organ(s)
CPT/HCPCS: 36415; 74177; 80053; 81001; 85025; 96361; 96374; 96375; 99284; J1170; J1885; J2405; J7030; Q9967

== ENCOUNTER 2023-10-29 11:11 | Outpatient (CLI) | payer MEDICARE, SELFPAY ==
--- NOTE | ~2023-10-29 | XR_ITS ---
XR abdomen/kub 1V 10/29/2023 11:34 INDICATION: Right ureteral stone TECHNIQUE: KUB COMPARISON: 10/16/2023 FINDINGS: Bowel gas pattern is normal. Moderate colonic fecal loading. There is no evidence of free a ir, mass, organomegaly, ascites or obstruction. No abnormal calculi are seen. The bones appear inta ct. There is dextroscoliosis with moderate lumbar spondylosis. IMPRESSION: 1: No acute abdominal abnormality identified. Reviewed, dictated and finalized at location B.
== END 2023-10-29 11:12 | disposition home or self-care (01) ==
LOC: ANHIMG 11:14
PROVIDERS: PCP Family Medicine; Visit Provider Urology
DX: N20.1 Calculus of ureter (principal)
CPT/HCPCS: 74018

== ENCOUNTER 2023-11-16 08:47 | Outpatient (CLI) | payer MEDICARE, SELFPAY ==
[2023-11-16 14:08] LABS: Hematocrit 42.1 % (42.0-52.0); Hemoglobin 13.3 g/dL (14.0-18.0); Mean Corpuscular HGB Conc 31.6 g/dl (32-36); Mean Corpuscular Hemoglobin 28.4 pg (26-34); Mean Corpuscular Volume 89.8 fl (80-100); Mean Platelet Volume 10.4 fl (7.4-10.4); Platelet Count Result 186 k/mm3 (150-375); Red Blood Count 4.69 M/mm3 (4.6-6.20); Red Cell Distribution Width 12.5 % (11.5-14.5); White Blood Count 4.4 K/mm3 (4.5-10.0)
[2023-11-16 14:36] LABS: Alanine Aminotransferase 23 U/L (6-50); Albumin Level 4.1 g/dL (3.5-5.1); Alkaline Phosphatase 60 U/L (38-126); Anion Gap 5 mmol/L (4-12); Aspartate Amino Transferase 44 U/L (17-59); Bilirubin,Total 0.4 mg/dL (0.2-1.3); Blood Urea Nitrogen 15 mg/dL (9-20); Carbon Dioxide 27 mmol/L (22-30); Chloride 106 mmol/L (98-107); Cholesterol 179 mg/dL (0-200); Estimated Glomerular Filt Rate > 60; Glucose 81 mg/dL (65-110); HDL Direct 76 mg/dL; Potassium 4.4 mmol/L (3.4-5.0); Sodium 138 mmol/L (137-145); Triglycerides 96 mg/dL (<150)
[2023-11-16 14:46] LABS: LDL Cholesterol Direct 82 mg/dL
== END 2023-11-16 08:48 | disposition home or self-care (01) ==
PROVIDERS: PCP Family Medicine; Visit Provider Nurse Practitioner
DX: E78.5 Hyperlipidemia, unspecified (principal); E55.9 Vitamin D deficiency, unspecified
CPT/HCPCS: 36415; 80053; 80061; 82306; 84443; 85027

== ENCOUNTER 2023-11-23 08:06 | Outpatient (CLI) | payer MEDICARE, SELFPAY ==
--- NOTE | ~2023-11-23 | XR_ITS ---
EXAMINATION: XR abdomen/kub 1V DATE: 11/23/2023 08:47 INDICATION: Right kidney stone. TECHNIQUE: A supine view of the abdomen on 2 radiographs was obtained. COMPARISON: CT abdomen and pelvis 10/17/2023 FINDINGS: There are no dilated loops of bowel. There is a 4 mm stone in proximal right ureter at L4. IMPRESSION: 1. 4 mm stone in proximal right ureter at L4. Reviewed, dictated and finalized at location A.
== END 2023-11-23 08:07 ==
PROVIDERS: PCP Urology; Visit Provider Urology
DX: N20.1 Calculus of ureter (principal)
CPT/HCPCS: 74018

== ENCOUNTER 2023-12-07 09:14 | Outpatient (CLI) | payer MEDICARE, SELFPAY ==
--- NOTE | ~2023-12-07 | CT_ITS ---
Non-contrast CT scan of the Abdomen and Pelvis Clinical indication: Right ureteral stone Technique: 2.5 mm axial scans were obtained through the abdomen and pelvis without intravenous or or al contrast. Dose reduction technique was used on this scan by utilizing automated exposure control a nd iterative reconstruction technique. The dose-length product (DLP) was 197.61 mGy-cm. COMPARISON: 10/17/2023 Findings: Images through the lung bases reveal no abnormalities. 5 mm right ureteral stone has migrated to the distal right ureter (axial image 146). Interval resolut ion of right hydronephrosis and right perinephric stranding. No left renal or left ureteral stone. No left hydronephrosis. The liver, spleen, pancreas, and adrenals appear normal. Probable small gallstone. There is no aortic aneurysm. There is no evidence of bowel obstruction. Images through the pelvis were performed. There is no evidence of ascites or lymphadenopathy. Urinary bladder unremarkable. No pelvic mass seen. Impression: 5 mm right ureteral stone has migrated to distal right ureter since prior exam. Interval resolution o f hydronephrosis and right perinephric stranding. Reviewed, dictated and finalized at location . Impression: 5 mm right ureteral stone has migrated to distal right ureter since prior exam. Interval resolution of hydronephrosis and right perinephric stranding.
== END 2023-12-07 09:15 | disposition home or self-care (01) ==
PROVIDERS: PCP Urology; Visit Provider Urology
DX: N20.1 Calculus of ureter (principal)
CPT/HCPCS: 74176

== ENCOUNTER 2023-12-17 08:31 | Outpatient (CLI) | payer MEDICARE, SELFPAY | END 2023-12-17 08:32 | disposition home or self-care (01) | LOC: ANHSURGERY 08:38 | PROVIDERS: PCP Family Medicine; Visit Provider Urology | DX: N20.0 Calculus of kidney (principal) | CPT/HCPCS: 87086 ==

== ENCOUNTER 2023-12-22 00:21 | Day surgery (SDC) | payer MEDICARE, SELFPAY ==
--- NOTE | 2023-12-16 09:31 | PC.NURSE ---
Report to the Outpatient Waiting Room, entrance under the green pavilion located off [facility], at time __11:30 AM on date _12/22/23 . Planned Procedure Time: _1:30 PM . Time changes happen often and if your time is changed the preop area will call you the afternoon before. - You and your visitor will be asked to self-screen and do not enter if you have any COVID symptoms. - A mask is optional within the hospital at this time. Patients may have clear liquids (water, carbonated beverages, clear teas, apple juice) until 3 hours prior to surgery( 10:30 AM) with a maximum of 20 ounces. - No food from midnight until time of surgery - Infants may have breast milk until 4 hours before surgery, infant formula 6 hours prior to surgery. - Children will be allowed to drink immediately following surgery. If applicable, please bring a bottle or sippy cup to assist with drinking. Juice, water, soda, and popsicles are readily available. For infants on formula, please bring formula the day of surgery. Pacifiers are allowed. Take the following medications with a SIP of water the morning of surgery: __NONE DO NOT STOP ANY OF YOUR OTHER PRESCRIPTION MEDICATIONS PRIOR TO SURGERY ?EXCEPT THE FOLLOWING Medications to discontinue per physician ____HOLD ALL VITAMINS 3 DAY PRE OP.LAST DOSE 12/18/23____HOLD IBUPROFEN PER DR ARROYO Please no make-up, nail somali, hairspray, perfume, deodorant, or body powder the day of surgery. No jewelry (including any body piercings) or valuables the day of surgery, leave them at home. Please take a shower or bath the night before, or the morning of, surgery with an antibacterial soap. Wear comfortable, loose fitting clothing. Children are encouraged to wear pajamas. - Jewelry must be removed prior to entering the operating room. Rings and piercings that are not removed may be cut off. - The hospital will not accept responsibility for valuables. - Please leave all valuables, including medications, at home the day of surgery. If you are going home after surgery, a licensed national van truck driver must drive you home. - NO public transportation without another adult if you receive anesthesia. - We recommend that an adult stay with you for 24 hours following discharge. - We also recommend that you do not drive, make important decision, drink alcoholic beverages, or take any drugs that were not prescribed by your health care provider for at least 24 hours after your discharge time. Follow any additional instructions given to you from your surgeon. If you or anyone in your household have experienced Covid symptoms in the past week, please notify your surgeon or the nurse liaison at the phone number below for possible testing. Telephone instructions given to ___PATIENT and asked if any additional questions and then verbalized understanding. Patient advised to call surgeon office or pre surgery nurse liaison [phone] if any additional questions.
[2023-12-16 09:40] VITALS: BMI 24.3
[2023-12-22] VITALS (7 sets, daily range): BP systolic 113–154; BP diastolic 74–84; PULSE 48–57; RESP 12–15; TEMP 36.3; O2SAT 99–100
--- NOTE | ~2023-12-22 | XR_ITS ---
EXAMINATION: XR retrograde pyelo w/stent RT DATE: 12/22/2023 14:19 INDICATION: Right internal ureteral stent placement TECHNIQUE: Fluoroscopic images from a right stent placement are submitted for review. 17 seconds of f luoroscopy time. 4 fluoroscopic images. FINDINGS: There is a right double-J internal ureteral stent projecting in expected position, with proximal [place] loop at the level of the renal pelvis. The distal loop of the stent is not visualized. IMPRESSION: 1. Right internal ureteral stent placement. Please refer to real-time procedural findings for osmar calle. Reviewed, dictated and finalized at location B. IMPRESSION: 1. Right internal ureteral stent placement. Please refer to real-time procedu ral findings for details.
--- NOTE | 2023-12-22 12:21 | WPDHPUPDATE1 ---
History and Physical Update Update Date/Time: 12/22/23 12:21 History and Physical has been reviewed, including an updated exam of the patient. There are NO changes in the patient's condition. Risks, benefits, and alternatives have been discussed and questions answered. Patient agrees to proceed with procedure. Proceed with cystoscopy right retrograde pyelogram right ureteroscopy with stone extraction possible laser stent placement
--- NOTE | 2023-12-22 12:22 | PM.IMHP ---
H&P: HPI History of Present Illness Date/Time: 12/22/23 12:22 Chief Complaint: Retained 5 mm right ureteral calculus Narrative: 73-year-old male who underwent a lithotripsy about 2-3 months ago. It was originally 8 mm right renal pelvic stone. He has been unable to pass a 5 mm fragment. He now presents for definitive therapy. Review of Systems Review of Systems: All systems reviewed & are unremarkable except as noted in HPI and below PMFSH Past Medical History Medical History Anemia Arthritis Back pain Elevated PSA Encounter for screening colonoscopy Hepatitis C antibody test negative (04/09/20) Hyperlipidemia Kidney stone Overweight (BMI 25.0-29.9) Prostate CA (~10/11/20) Trigger finger Surgical History Surgical History H/O hernia repair H/O inguinal hernia repair H/O prostatectomy 10/2020 H/O vasectomy History of carpal tunnel surgery 2020 History of lithotripsy History of total right knee replacement Status post trigger finger release (~06/24/21) Right- digits 2-5 Left- 2, 3 & 5th digits Family History Family History Father Diabetes mellitus Family history of coronary artery disease Mother Family history of malignant neoplasm of breast Social History Social History Smoking status: Never smoker Second hand tobacco smoke exposure: No Alcohol intake: current Drinks per week: 1 Alcohol use details: BEER Substance use: never Substance use type: does not use Do You Feel Safe in your Home?: Yes Lack of Transportation: No Lack of Food: Never True Current Housing: I Have Housing Concerned About Future Housing: No Difficulty Paying Gas/Electric Bills: No Difficulty Paying for Meds: No Currently Unemployed: No Education: Bachelor's Degree Difficulty w/ Childcare or Family Care: No Living arrangements: with family Additional living arrangements comments: Occupation/Education: retired Gender identity (if verbalized by the patient): Male Sexual Orientation (if Verbalized by the Patient): Straight or Heterosexual Spiritual care concerns: No Meds Home Medications and Allergies Home Medications Medication Instructions Recorded Confirmed Type cholecalciferol (vitamin D3) 50 50 mcg PO DAILY 10/08/23 12/16/23 History mcg (2,000 unit) tablet ibuprofen 200 mg tablet See Rx Instructions .Route 10/08/23 12/16/23 History .COMPLEX PRN Pain epinephrine 0.3 mg/0.3 mL 0.3 mg (0.3 mL) IM ONCE #2 ea 11/24/23 12/16/23 Rx injection, auto-injector Allergies Allergy/AdvReac Type Severity Reaction Status Date / Time bee venom protein (honey bee) Allergy Intermediate Swelling Verified 12/16/23 09:24 [bees] codeine Allergy Intermediate Hives Verified 12/16/23 09:24 hydrocodone Allergy Intermediate Hives Verified 12/16/23 09:24 morphine Allergy Intermediate itching, Verified 12/16/23 09:24 nausea oxycodone Allergy Intermediate Itching Verified 12/16/23 09:24 pentazocine Allergy Intermediate Itching Verified 12/16/23 09:24 Sulfa (Sulfonamide Allergy Intermediate Abdominal Verified 12/16/23 09:24 Antibiotics) Pain, HIVES Exam Const: General: cooperative and comfortable Resp: Effort & Inspection: normal respiratory effort Cardio: Rate: regular rate Rhythm: regular rhythm GI: GI Palp: Yes Soft to palpation Assessment and Plan Assessment and plan (1) Right ureteral calculus: Code(s): N20.1 - Calculus of ureter Status: Acute Assessment and Plan: Cystoscopy, right retrograde pyelogram, right ureteroscopy with stone extraction, possible laser, stent placement
--- NOTE | 2023-12-22 12:28 | WPDANESEPPF ---
Anes - Initial Pre Proc Eval Procedure: Operation Date: 12/22/23 13:30 Proposed Procedures p Cystoscopy, Right Ureteroscopy with Holmium Laser Lithotripsy, Right Stone Extraction, Possible Right Retrograde Pyelogram, Possible Right Stent Placement - Elvis Rosales MD Date/Time: 12/22/23 12:28 Surgeon: Elvis Rosales MD Pre Op Diagnosis: Rt Renal Stone Patient Data Age: 73 Gender: M Height: 1.73 m Weight: 72.6 kg Allergies Allergy/AdvReac Type Severity Reaction Status Date / Time bee venom protein (honey bee) Allergy Intermediate Swelling Verified 12/16/23 09:24 [bees] codeine Allergy Intermediate Hives Verified 12/16/23 09:24 hydrocodone Allergy Intermediate Hives Verified 12/16/23 09:24 morphine Allergy Intermediate itching, Verified 12/16/23 09:24 nausea oxycodone Allergy Intermediate Itching Verified 12/16/23 09:24 pentazocine Allergy Intermediate Itching Verified 12/16/23 09:24 Sulfa (Sulfonamide Allergy Intermediate Abdominal Verified 12/16/23 09:24 Antibiotics) Pain, HIVES Home Medications Medication Instructions Recorded Confirmed Type cholecalciferol (vitamin D3) 50 50 mcg PO DAILY 10/08/23 12/16/23 History mcg (2,000 unit) tablet ibuprofen 200 mg tablet See Rx Instructions .Route 10/08/23 12/16/23 History .COMPLEX PRN Pain epinephrine 0.3 mg/0.3 mL 0.3 mg (0.3 mL) IM ONCE #2 ea 11/24/23 12/16/23 Rx injection, auto-injector Patient hx anesthesia problems: none Family hx anesthesia problems: none Results Review: All pre-operative results and documents have been reviewed as part of the pre-operative evaluation. FORMERLY [facility], [facility] Past Medical History Medical History Anemia Arthritis Back pain Elevated PSA Encounter for screening colonoscopy Hepatitis C antibody test negative (04/09/20) Hyperlipidemia Kidney stone Overweight (BMI 25.0-29.9) Prostate CA (~10/11/20) Trigger finger Surgical History Surgical History H/O hernia repair H/O inguinal hernia repair H/O prostatectomy 10/2020 H/O vasectomy History of carpal tunnel surgery 2020 History of lithotripsy History of total right knee replacement Status post trigger finger release (~06/24/21) Right- digits 2-5 Left- 2, 3 & 5th digits Family History Family History Father Diabetes mellitus Family history of coronary artery disease Mother Family history of malignant neoplasm of breast Social History Social History Smoking status: Never smoker Second hand tobacco smoke exposure: No Alcohol intake: current Drinks per week: 1 Alcohol use details: BEER Substance use: never Substance use type: does not use Do You Feel Safe in your Home?: Yes Lack of Transportation: No Lack of Food: Never True Current Housing: I Have Housing Concerned About Future Housing: No Difficulty Paying Gas/Electric Bills: No Difficulty Paying for Meds: No Currently Unemployed: No Education: Bachelor's Degree Difficulty w/ Childcare or Family Care: No Living arrangements: with family Additional living arrangements comments: Occupation/Education: retired Gender identity (if verbalized by the patient): Male Sexual Orientation (if Verbalized by the Patient): Straight or Heterosexual Spiritual care concerns: No Anes - Eval Final PreProcedure Day of Procedure 12/22/23 12:28 Patient weight: normal Heart: regular rate and rhythm Lungs: clear to auscultation Airway: Mallampati scale class II Neurological: alert and oriented Last oral intake: >/= 8 hours ASA classification: II Emergent: no Anesthetic plan: proceed Anesthesia type and monitoring: general LMA and standard monitoring Results Review: All pre-operative results and documents have been reviewed a
[2023-12-22] MEDS: LACTATED RINGERS 1,000 ML 30 ML IV CONT (13:00)
[2023-12-22] MEDS: ceFAZolin 2 GM/D5W 50 ML 2 GM/50 ML BAG IVPB (13:51)
[2023-12-22] MEDS: LIDOCAINE HCL 2% GEL UROJET 10 ML PKG MUCOUS MEM (14:04)
--- NOTE | 2023-12-22 14:20 | W.PM.PROC2 ---
Procedure Note - Detailed Date of Procedure 12/22/23 Pre-op Diagnosis Rt ureteral Stone 5-6 mm Post-op Diagnosis Same Procedure Performed Cystoscopy, right retrograde pyelogram, right ureteroscopy with stone extraction, right ureteral stent placement 4.8 [place] contour Surgeon Elvis Rosales MD Anesthesia General Description of Procedure Patient is taken to the operative suite correctly identified. Once anesthesia was obtained was placed in dorsal lithotomy position and prepped and draped usual sterile fashion. Nineteen [place]ian scope was inserted into the bladder. There are no tumors noted. The right ureteral orifice was cannulated with a guidewire. I dilated the orifice with an 8/10 dilator. Rigid ureteral scope was then inserted. The stone was seen lodged in the mid to distal ureter. Using escape basket I was able to retrieve the stone and sent for analysis. Reinspection revealed no residual stone. Contrast was then injected as a pyelogram to confirm placement of the stent. 4.8 [place] contour stent was then placed with the proximal end coiled in the right lower pole and the distal in the bladder. Bladder was drained. 2% viscous lidocaine was inserted into the urethra and patient is taken recovery stable condition. He will follow-up in a week's time for stent removal. This completes dictation. Please send a copy of op note to my office. Estimated Blood Loss 0 Drains Yes Packing No Pathology Yes Complications No immediate complications Condition Stable Disposition PACU
== END 2023-12-22 16:10 | disposition home or self-care (01) ==
PROVIDERS: PCP Family Medicine; Visit Provider Urology
PROC: (CPT 52352; principal; 2023-12-22 13:30)
DX: N20.1 Calculus of ureter (principal)
CPT/HCPCS: 52352; 52332; 74420; 82365; 88300; C1769; C2617; J0690; J1100; J2405; J2704; J3010; J7120; Q9966

== ENCOUNTER 2024-01-12 12:07 | Outpatient (CLI) | payer MEDICARE, SELFPAY ==
--- NOTE | ~2024-01-12 | XR_ITS ---
3 VIEWS LUMBAR SPINE Ordering provider: Janny Santoyo DO History: . Pain x 1 week, no injury . Comparison: None. FINDINGS: VERTEBRAL BODIES: No visible fracture or subluxation. Degenerative changes of the spine. Dextroscolio sis. DISK SPACES: Narrowing of the disc L1-L2, L2-L3, L3-L4, and L4-L5. Multilevel facet joint disease. SOFT TISSUES: Normal. IMPRESSION: No acute osseous abnormality lumbar spine. Multilevel degenerative disc disease. Reviewed, dictated and finalized at location A.
--- NOTE | ~2024-01-12 | XR_ITS ---
AP and lateral views of the left hip Clinical history: Pain Findings: No acute fracture or dislocation is seen. Osseous alignment is anatomic. There is mild left hip joint osteoarthritis. Soft tissues are unremarkable. Impression: Mild left hip joint osteoarthritis. Reviewed, dictated and finalized at location . Impression: Mild left hip joint osteoarthritis.
== END 2024-01-12 12:08 ==
PROVIDERS: PCP Family Medicine; Visit Provider Family Medicine
DX: M54.50 Low back pain, unspecified (principal); M25.552 Pain in left hip; M16.12 Unilateral primary osteoarthritis, left hip; M51.36 Other intervertebral disc degeneration, lumbar region
CPT/HCPCS: 72110; 73502

== ENCOUNTER 2024-01-13 13:42 | Inpatient (IN) | payer MEDICARE, SELFPAY ==
--- NOTE | ~2024-01-13 | CT_ITS ---
EXAMINATION: CT abd pelvis lumbar w con DATE: 01/13/2024 16:03 INDICATION: Left-sided low back pain. Left hip pain. Prostate cancer. TECHNIQUE: Computed tomography (CT) of the abdomen and pelvis and lumbar spine was performed with 100 mL Omnipaque 350 intravenous contrast. Automated exposure control and iterative reconstruction techn ique were employed. The dose-length product was 382.96 mGy-cm. COMPARISON: CT abdomen and pelvis 12/07/2023 FINDINGS: CT ABDOMEN AND PELVIS: The visualized portions of the lung bases demonstrate mild atelectasis. No ple ural effusion. The heart size is normal. There are calcifications of the aortic valve. No pericardial effusion. There is a 7 mm cyst in the liver. The gallbladder, spleen, pancreas, adrenal glands, and left kidney are normal. There is a 13 mm cyst in right kidney. There are no dilated loops of bowel. T he appendix is normal. There are no pathologically enlarged lymph nodes. There is no free intraperito negin fluid. There is moderate osteoarthritis of the hips. CT LUMBAR SPINE: There is 16 degrees dextroscoliosis of the lumbar spine. There is mild chronic anter ior wedging of T12 and L1 vertebral bodies. There is moderately decreased disc height at T12-L1, rosa maria rely decreased disc height at L1-L2, moderately decreased disc height at L2-L3, and severely decrease d disc height from L3-L4 through L5-S1. The following disc levels are specifically discussed: L1-L2: The disc is bulging. There is moderate bilateral facet joint osteoarthritis. There is moderate bilateral neural foraminal stenosis. There is mild central canal stenosis. L2-L3: The disc is bulging with superimposed left subarticular zone extrusion. There is moderate bila teral facet joint osteoarthritis. There is moderate bilateral neural foraminal stenosis. There is mil d central canal stenosis. There is severe stenosis of left lateral recess. L3-L4: The disc is bulging. There is severe bilateral facet joint osteoarthritis. There is moderate b ilateral neural foraminal stenosis. There is mild central canal stenosis. L4-L5: The disc is bulging. There is severe right and moderate left facet joint osteoarthritis. There is moderate bilateral neural foraminal stenosis. There is mild central canal stenosis. L5-S1: The disc is bulging. There is severe bilateral facet joint osteoarthritis. There is moderate b ilateral neural foraminal stenosis. There is mild central canal stenosis. IMPRESSION: 1. Severe lumbar spondylosis. 2. Thoracolumbar dextroscoliosis. 3. Moderate osteoarthritis of the hips. Reviewed, dictated and finalized at location E.
--- NOTE | ~2024-01-13 | MR_ITS ---
MRI of the lumbar spine Clinical History: Back pain, numbness Technique: Axial T2-weighted images, and sagittal T1-weighted, T2-weighted, and and T2 fat-sat images were acquired. Findings: No acute fracture or subluxation seen. Possible minimal chronic anterior wedging deformity of L1. No suspicious bone marrow signal abnormality seen. At L1-L2, there is severe degenerative disc narrowing. There is osteophyte formation at the left fora karmen region, with mild to moderate facet arthropathy, resulting in severe left neural foraminal narr owing. There is moderate right neural foraminal narrowing. No jonh central canal stenosis. There is left lateral recess stenosis. At L2-L3, there is moderate degenerative disc narrowing. Diffuse disc bulge and moderate facet arthro jesus result in moderate to advanced spinal canal stenosis/thecal sac compression. There is a superim posed left paracentral disc extrusion extending inferiorly behind the L3 vertebral body, probably imp inging the descending left L3-L4 level nerve root. There is severe bilateral neural foraminal narrowi ng, right worse than left. At L3-L4, there is advanced degenerative disc narrowing. There is mild disc bulge with advanced facet arthropathy. There is minimal central canal stenosis. There is severe bilateral neural foraminal edvin rowing. At L4-L5, there is severe degenerative disc narrowing. There is disc bulge and severe facet arthropat hy. There is severe bilateral neural foraminal narrowing. Probable minimal central canal stenosis. At L5-S1, there is diffuse disc bulge and moderate facet arthropathy. No central canal stenosis. Ther e is severe bilateral neural foraminal narrowing. Impression: Left paracentral disc extrusion/herniation at L2-L3, extending inferiorly behind the L3 vertebral bod y, and probably impinging the descending left-sided L3-L4 level nerve root. Diffuse severe degenerative spondylosis otherwise throughout the lumbar spine, as detailed above, wit h multilevel spinal canal stenosis and severe neural foraminal narrowing. Reviewed, dictated and finalized at location M. Impression: Left paracentral disc extrusion/herniation at L2-L3, extending inferiorly behin d the L3 vertebral body, and probably impinging the descending left-sided L3-L4 level nerve root. Diffuse severe degenerative spondylosis otherwise throughout the lumbar spine, as detailed above, with multilevel spinal canal stenosis and severe neural fora karmen narrowing.
[2024-01-13 13:43] VITALS: BP 159/77; PULSE 58; RESP 16; TEMP 36.2; O2SAT 99
--- NOTE | 2024-01-13 15:10 | ED.GENADULT ---
HPI - General Adult General Chief complaint: Unspecified Stated complaint: hip and back pain Time Seen by Provider: 01/13/24 14:39 History of Present Illness HPI narrative: Shayan Villalobos is a 73 y/o male who presents with reported hx of Prostate CA s/p prostatectomy 2 years ago, Multiple kidney stones most recently had a cystoscopy about 3 weeks ago. He states he was feeling improved until January 05 he woke up with severe left lower back/ back pelvic pain that started as intermittent and now pain is constant much more severe and moving around his pelvic area and radiates some down the upper portion of his left leg No numbness or tingling to his legs/ no loss of bowel or bladder He denies changes with urine/ Last BM was today He saw his PCP yesterday they did an XR and his PCP said if the pain is worse in the AM to go to the ER for CT or MRI Related Data Home Medications Medication Instructions Recorded Confirmed cholecalciferol (vitamin D3) 50 50 mcg PO DAILY 10/08/23 01/12/24 mcg (2,000 unit) tablet Allergies Allergy/AdvReac Type Severity Reaction Status Date / Time bee venom protein (honey bee) Allergy Intermediate Swelling Verified 01/12/24 11:30 [bees] codeine Allergy Intermediate Hives Verified 01/12/24 11:30 hydrocodone Allergy Intermediate Hives Verified 01/12/24 11:30 morphine Allergy Intermediate itching, Verified 01/12/24 11:30 nausea oxycodone Allergy Intermediate Itching Verified 01/12/24 11:30 pentazocine Allergy Intermediate Itching Verified 01/12/24 11:30 Sulfa (Sulfonamide Allergy Intermediate Abdominal Verified 01/12/24 11:30 Antibiotics) Pain, HIVES Review of Systems Review of Systems: CONSTITUTIONAL: Denies fever, chills, or sweats. EYES: Denies visual changes, redness, or discharge. ENT: Denies rhinorrhea, congestion, sore throat, or otalgia. CARDIOVASCULAR: Denies chest pain, palpitations, or edema. RESPIRATORY: Denies cough or dyspnea. GASTROINTESTINAL: Denies abdominal pain, nausea, vomiting, or diarrhea. + left flank/ lower back pain for 1 week getting worse GENITOURINARY: Denies dysuria or hematuria. SKIN: Denies rash or itching. MUSCULOSKELETAL: + back pain that moves around to his left groin/ down left leg. No joint pain, or myalgia. NEUROLOGIC: Denies headache, numbness, dizziness, or weakness. PSYCHIATRIC: Denies anxiety or depression. [facility] Past Medical History Medical History Anemia Arthritis Back pain Elevated PSA Encounter for screening colonoscopy Hepatitis C antibody test negative (04/09/20) Hyperlipidemia Kidney stone Overweight (BMI 25.0-29.9) Prostate CA (~10/11/20) Trigger finger Surgical History Surgical History H/O hernia repair H/O inguinal hernia repair H/O prostatectomy 10/2020 H/O vasectomy History of carpal tunnel surgery 2020 History of lithotripsy History of total right knee replacement Status post trigger finger release (~06/24/21) Right- digits 2-5 Left- 2, 3 & 5th digits Family History Family History Father Diabetes mellitus Family history of coronary artery disease Mother Family history of malignant neoplasm of breast Social History Social History Smoking status: Never smoker Second hand tobacco smoke exposure: No Alcohol intake: current Drinks per week: 1 Alcohol use details: BEER Substance use: never Substance use type: does not use Do You Feel Safe in your Home?: Yes Lack of Transportation: No Lack of Food: Never True Current Housing: I Have Housing Concerned About Future Housing: No Difficulty Paying Gas/Electric Bills: No Difficulty Paying for Meds: No Currently Unemployed: No Education: Bachelor's Degree Difficulty w/ Childcare or Family Care: No Living arrangements:
[2024-01-13] MEDS: fentaNYL CITRATE INJ (*CRX) 100 MCG/2 ML VIAL 50 MCG IV PUSH ×3 (15:20→22:00)
[2024-01-13] MEDS: KETOROLAC 30 MG/ML VIAL (*BKC) IV PUSH (15:20)
[2024-01-13 15:32] LABS: Basophils Absolute Auto 0.1 K/mm3 (0.0-0.1); Eosinophils Absolute Auto 0.2 K/mm3 (0-0.3); Eosinophils Percent Auto 2.4 % (0-4.4); Hematocrit 47.1 % (42.0-52.0); Hemoglobin 15.6 g/dL (14.0-18.0); Immature Granulocyte Absolute 0.01 K/mm3 (0.00-0.031); Immature Granulocyte Percent A 0.1 % (0-0.5); Lymphocytes Absolute Auto 1.17 K/mm3 (0.9-3.2); Lymphocytes Percent Auto 16.6 % (18.3-44.2); Mean Corpuscular HGB Conc 33.1 g/dl (32-36); Mean Corpuscular Hemoglobin 28.2 pg (26-34); Mean Corpuscular Volume 85.2 fl (80-100); Mean Platelet Volume 9.7 fl (7.4-10.4); Monocytes Absolute Auto 0.4 K/mm3 (0.1-0.6); Monocytes Percent Auto 6.2 % (2.6-8.5); Neutrophils Absolute Auto 5.2 K/mm3 (1.3-6.7); Neutrophils Percent Auto 73.7 % (45.5-73.1); Platelet Count Result 248 k/mm3 (150-375); Red Blood Count 5.53 M/mm3 (4.6-6.20); Red Cell Distribution Width 13.1 % (11.5-14.5); White Blood Count 7.1 K/mm3 (4.5-10.0)
[2024-01-13 15:33] LABS: Appearance Urine Clear (Clear); Bilirubin Urine Negative (Negative); Blood Urine Negative (Negative); Color Urine Yellow (Yellow); Glucose Urine UA Negative (Negative); Ketones Urine Negative (Negative); Leukocyte Esterase Ur Negative LEU/UL (Negative); Nitrate Urine Negative (Negative); Protein Urine Negative (Negative); Specific Grav Ur 1.008 (1.001-1.035); Urobilinogen Urine 0.2 mg/dL (<2.0); pH Urine 7.5 (5.0-9.0)
[2024-01-13 15:38] LABS: Add Urine Microscopic? NO
[2024-01-13 15:42] LABS: Alanine Aminotransferase 18 U/L (6-50); Albumin Level 4.7 g/dL (3.5-5.1); Alkaline Phosphatase 62 U/L (38-126); Anion Gap 9 mmol/L (4-12); Aspartate Amino Transferase 25 U/L (17-59); Bilirubin,Total 0.4 mg/dL (0.2-1.3); Blood Urea Nitrogen 16 mg/dL (9-20); Calcium 9.3 mg/dL (8.4-10.2); Carbon Dioxide 30 mmol/L (22-30); Chloride 100 mmol/L (98-107); Estimated CRCL calculation 64 ml/min; Estimated Glomerular Filt Rate > 60; Glucose 97 mg/dL (65-110); Sodium 139 mmol/L (137-145)
[2024-01-13 15:51] VITALS: PULSE 58; RESP 16; O2SAT 97
[2024-01-13] MEDS: dexAMETHasone SOD PHOS INJ 10 MG/ML 1 ML VIAL IV PUSH (16:34)
[2024-01-13] MEDS: diazePAM (*CRX) 5 MG TABLET PO (16:34)
[2024-01-13] MEDS: LIDOCAINE 5% PATCH 1 PATCH TRANSDERM (16:34)
[2024-01-13 18:09] VITALS: BP 167/84; PULSE 56; RESP 15; TEMP 36.4; O2SAT 99
[2024-01-13 20:20] VITALS: BP 163/87; PULSE 58; RESP 18; TEMP 36.6; O2SAT 98
[2024-01-13 20:21] VITALS: BMI 24.7
--- NOTE | 2024-01-13 20:23 | ADMGEN ---
This patient, Shayan Villalobos, was admitted to 2 Medical Room 241-01. Patient/family oriented to hospital policies and general routines including ID bracelet, bed and alarms, visiting hours, pain management, procedures, bathroom and other care routines, personal items, smoking policy, room service/diet, and visiting hours. Information on how to activate the Rapid Response Team has been discussed. Patient/Family are encouraged to report perceived risks to care and to ask questions if they do not understand what they are told or what they should do.
--- NOTE | 2024-01-13 21:00 | PM.IMHP ---
H&P: [facility] History of Present Illness Date/Time: 01/13/24 21:00 Chief Complaint: Back pain Narrative: 73-year-old male presents here with lower back pain with PMH of anemia, arthritis, HLD, kidney stones, and prostate cancer s/p prostatectomy in 2020. The patient presents here with low back pain. He reports onset approx 1 week ago. No precipitating actions or trauma. Woke Thu with soreness to his left lower back and it dissipated as the day progressed. On 01/06 the patient was unable to get up and out of bed until late morning due to the pain. Thu-Thu had similar course in pain. Pain was not as noticeable through the day. On Thursday the pain did not leave as the morning progressed. Saw Janny Santoyo DO (PCP) who believed it was the piriformis. Now having pain also in his buttocks and radiating down his anterior LLE. Today the pain is so excruciating and exacerbated by very little activity, cited that walk to the restroom would flare the pain. Has previously been able to find some alleviating medication, position or massage but has been unable to find relief today despite Toradol, fentanyl, diazepam, lidocaine patch, and dexamethasone in the ED. Initial VS at presentation: 97.2? F, HR 58, R 16, 159/77, and 99% on RA ED workup showed: No leukocytosis, no anemia, no significant electrolyte derangements, creatinine 0.9 and GFR >60. CT abdomen/pelvis showed severe lumbar spondylosis, thoracolumbar dextroscoliosis, and moderate osteoarthritis of the hips. Review of Systems Review of Systems: All systems reviewed & are unremarkable except as noted in HPI and below [facility] Past Medical History Medical History (Updated 01/13/24 @ 22:58 by Valerie Dubose, CRISTIANA) Anemia Back pain Elevated PSA Hyperlipidemia Kidney stone Osteoarthritis Pilonidal cyst without infection Prostate CA (~10/11/20) Systolic murmur Trigger finger Vitamin D deficiency, unspecified Surgical History Surgical History H/O hernia repair H/O inguinal hernia repair H/O prostatectomy 10/2020 H/O vasectomy History of carpal tunnel surgery 2020 History of lithotripsy History of total right knee replacement Status post trigger finger release (~12/20/21) Right- digits 2-5 Left- 2, 3 & 5th digits Family History Family History Father Diabetes mellitus Family history of coronary artery disease Mother Family history of malignant neoplasm of breast Social History Social History Smoking status: Never smoker Second hand tobacco smoke exposure: No Alcohol intake: current Drinks per week: 1 Alcohol use details: BEER Substance use: never Substance use type: does not use Do You Feel Safe in your Home?: Yes Lack of Transportation: No Lack of Food: Sometimes True Current Housing: I Have Housing Concerned About Future Housing: No Difficulty Paying Gas/Electric Bills: No Difficulty Paying for Meds: No Currently Unemployed: No Education: Master's Degree or Higher Difficulty w/ Childcare or Family Care: No Living arrangements: with family Additional living arrangements comments: Occupation/Education: retired Gender identity (if verbalized by the patient): Male Sexual Orientation (if Verbalized by the Patient): Straight or Heterosexual Spiritual care concerns: No Meds Home Medications and Allergies Home Medications Medication Instructions Recorded Confirmed Type cholecalciferol (vitamin D3) 50 50 mcg PO DAILY 10/08/23 01/13/24 History mcg (2,000 unit) tablet epinephrine 0.3 mg/0.3 mL 0.3 mg (0.3 mL) IM ONCE #2 ea 11/24/23 01/13/24 Rx injection, auto-injector cyclobenzaprine 10 mg tablet 10 mg PO TID PRN muscle spasm #60 01/12/24 01/13/24 Rx tabs meloxicam 15 mg tablet 15 mg PO DAILY #90 tabs 01/12/24 01/13/24 Rx Allergies
[2024-01-13] MEDS: polyethylene glycoL 3350 17 GM POWD.PACK PO (21:59)
[2024-01-13] MEDS: dexAMETHasone SOD PHOS INJ 4 MG/ML VIAL IV PUSH (23:28)
[2024-01-14] MEDS: dexAMETHasone SOD PHOS INJ 4 MG/ML VIAL IV PUSH ×4 (05:05→23:30)
[2024-01-14 06:00] VITALS: BP 125/66; PULSE 56; RESP 18; TEMP 36.7; O2SAT 98
[2024-01-14] MEDS: fentaNYL CITRATE INJ (*CRX) 100 MCG/2 ML VIAL 25 MCG IV PUSH (06:10)
--- NOTE | 2024-01-14 07:15 | PM.IMPN ---
Progress Note: A&P Assessment and Plan (1) Lumbar pain: Code(s): M54.50 - Low back pain, unspecified Status: Acute Assessment and Plan: - CT abd/pelvis/lumbar: 1. Severe lumbar spondylosis. 2. Thoracolumbar dextroscoliosis. 3. Moderate osteoarthritis of the hips. - neurosurgery consulted - MRI lumbar spine Left paracentral disc extrusion/herniation at L2-L3, extending inferiorly behind the L3 vertebral body, and probably impinging the descending left-sided L3-L4 level nerve root. Multilevel spinal canal stenosis and severe neural foraminal narrowing. - pain control: Scheduled Tylenol, ibuprofen, meloxicam daily. He states the Flexeril dose not help much. Patient has had difficulty with narcotic pain medications in the past causing skin irritation, anxiety, and nausea. Will trial him on oxycodone prn with Pepcid and Benadryl as needed. He will also likely benefit from a steroid taper at discharge with follow up in pain management clinic with Dr Peres. - steroids: Dexamethasone - start bowel regimen, last BM on 01/11 Plan Patient here with lower back pain radiating into his left leg with associated numbness to his anterior thigh. Worsening over the last few days. CT showing severe lumbar spondylosis, see report. MRI ordered. Neurosurgery consulted. Pain control and steroids in interim. Diet: Heart healthy GI Prophylaxis: Not currently indicated DVT Prophylaxis: SCDs Lines: Peripheral Code Status: Full code Subjective Date/time seen: 01/14/24 07:15 Interval history: 73-year-old male presents here with lower back pain with PMH of anemia, arthritis, HLD, kidney stones, and prostate cancer s/p prostatectomy in 2020. 01/13: No acute events overnight. Patient is here with lower back pain that recently progressed with radiating pain down his left lateral thigh causing decreased mobility. Currently at rest he reports his pain 01/12 describes it as someone poking in the ice pick into his back. Without movement the pain is localized to his lower back. When he moves around he a has radiating pain. Since starting IV steroids the pain is no longer radiating. He denies paresthesia or numbness. He is urinating without difficulty. He has not had a bowel movement since Thursday but he is also had a decreased appetite and not ambulating regularly. He does report passing bottom this and is not having nausea or vomiting or abdominal pain. Review of Systems Review of Systems: All systems reviewed & are unremarkable except as noted in HPI and below Exam Narrative: General: well appearing, appears stated age. HEENT: normocephalic, atraumatic. Mucous membranes moist. EOMI, PERRLA, bilateral sclera anicteric, no conjunctival injection. Neck supple without JVD, lymphadenopathy, or bruit. Respiratory: clear to auscultation bilaterally. No rales/rhonic/wheezes. Cardiovascular: Regular rate and rhythm, normal S1-S2 upon auscultation. No murmurs, rubs, or clicks. PMI is nondisplaced, capillary refill less than 3 second. Abdomen: Soft, round, no pulsatile masses, nondistended and nontender. No rebound, no guarding. No CVA tenderness, no hepatosplenomegaly. Bowel sounds present to all four quadrants. No high pitch or tinkling sounds, resonant to percussion. Extremities: No cyanosis, clubbing, or edema present. Pulses are palpable 2/2. Active ROM to all four extremities. 5/5 muscle strength in bilateral upper and lower extremities. Neuro: Alert and orientated x 4. PERRLA. Cranial nerves 2-12 intact without focal deficit. Skin: Warm, dry, and intact, without rash, erythema, or lesion. Lines: PIV Incisions: Psych: pleasant, cooperative, normal speech, normal affect, no hallucinations, no dysarthria Objective Data Vital Signs Vital Signs: Vital Signs - 24 hr 01/13/24 13:43 01/13/24 15:51 01/13/24 18:09 Temperature 97.2 F L 97.6 F Pulse Rate 58 L 58 L 56 L Respiratory Rate 16 16 15 Blood Pressure 159/77 H 167/
[2024-01-14] MEDS: ACETAMINOPHEN 325 MG TABLET 650 MG PO ×3 (08:44→23:30)
[2024-01-14] MEDS: CHOLECALCIFEROL 1,000 UNITS TABLET 2000 UNITS PO (08:44)
[2024-01-14] MEDS: polyethylene glycoL 3350 17 GM POWD.PACK PO (08:45)
[2024-01-14] MEDS: MELOXICAM 7.5 MG TABLET 15 MG PO (08:45)
[2024-01-14] MEDS: IBUPROFEN 600 MG TABLET PO ×2 (08:45→20:39)
--- NOTE | 2024-01-14 08:45 | PC.NURSE ---
Patient off floor to MRI via wheelchair.
--- NOTE | 2024-01-14 09:20 | PC.NURSE ---
Patient returned from radiology to floor via wheelchair.
[2024-01-14] MEDS: FAMOTIDINE 20 MG TABLET PO ×2 (11:22→20:39)
[2024-01-14] MEDS: oxyCODONE HCL (*CRX) 5 MG TAB IR PO ×2 (11:23→16:44)
[2024-01-14 14:00] VITALS: BP 106/66; PULSE 72; RESP 17; TEMP 36.6; O2SAT 96
[2024-01-14 17:09] LABS: Glucose Point of Care 148 mg/dl (65-105)
--- NOTE | 2024-01-14 18:24 | WPDNEUROSGCN ---
Assessment and Plan Assessment and plan (1) Lumbar disc herniation with radiculopathy: Code(s): M51.16 - Intervertebral disc disorders with radiculopathy, lumbar region Status: Acute Plan Mr. Villalobos is a 73-year-old male with 7-10 day history of severe low back pain radiating into the left thigh which has fortunately been quite responsive to medical management since admission to the hospital overnight. He does not have any focal deficits on neurologic exam. MRI lumbar spine shows a degenerative scoliosis with multilevel degenerative changes, but most notably also shows an inferiorly migrated left-sided disc herniation at L2-3 causing severe lateral recess stenosis. The disc herniation is the most likely cause of his current symptoms. Given that he has had so much improvement with medical management overnight, I would recommend continued conservative treatment which should include physical therapy assessment. I would recommend discharge from the hospital with at least a Medrol Dosepak if not a Decadron taper. I would recommend that he continue physical therapy as an outpatient. I will arrange for follow-up in my clinic in the next 6-8 weeks. Consult date: 01/14/24 Time Seen: 13:00 HPI: Shayan Villalobos is a 73 year old male with history of hyperlipidemia, kidney stones, and prostate cancer who presented to the ER yesterday with intractable low back pain radiating into the left thigh. This started about 7-10 days ago and at times has prevented him from getting out of bed. He denies any obvious inciting event. His pain is constant, and he was unable to get any significant relief, prompting his visit to the ER. He denies any right-sided symptoms, paresthesias, or focal weakness, although he does report some generalized weakness with attempting to walk. Fortunately, he is feeling much better since his admission to the hospital. He has been able to get up and walk in the room. Review of Systems Review of Systems: All systems reviewed & are unremarkable except as noted in HPI and below PMFSH Past Medical History Medical History (Updated 01/14/24 @ 18:30 by Arpita Rivas MD) Anemia Back pain Elevated PSA Hyperlipidemia Kidney stone Osteoarthritis Pilonidal cyst without infection Prostate CA (~10/11/20) Systolic murmur Trigger finger Vitamin D deficiency, unspecified Surgical History Surgical History H/O hernia repair H/O inguinal hernia repair H/O prostatectomy 10/2020 H/O vasectomy History of carpal tunnel surgery 2020 History of lithotripsy History of total right knee replacement Status post trigger finger release (~06/24/21) Right- digits 2-5 Left- 2, 3 & 5th digits Family History Family History Father Diabetes mellitus Family history of coronary artery disease Mother Family history of malignant neoplasm of breast Social History Social History Smoking status: Never smoker Second hand tobacco smoke exposure: No Alcohol intake: current Drinks per week: 1 Alcohol use details: BEER Substance use: never Substance use type: does not use Do You Feel Safe in your Home?: Yes Lack of Transportation: No Lack of Food: Sometimes True Current Housing: I Have Housing Concerned About Future Housing: No Difficulty Paying Gas/Electric Bills: No Difficulty Paying for Meds: No Currently Unemployed: No Education: Master's Degree or Higher Difficulty w/ Childcare or Family Care: No Living arrangements: with family Additional living arrangements comments: Occupation/Education: retired Gender identity (if verbalized by the patient): Male Sexual Orientation (if Verbalized by the Patient): Straight or Heterosexual Spiritual care concerns: No Meds Home Medications and Allergies Home Medicatio
[2024-01-14 19:40] VITALS: BP 122/70; PULSE 65; RESP 17; TEMP 36.6; O2SAT 95
[2024-01-15] MEDS: oxyCODONE HCL (*CRX) 5 MG TAB IR PO ×2 (03:59→08:45)
[2024-01-15 05:02] VITALS: BP 123/67; PULSE 60; RESP 17; TEMP 36.4; O2SAT 95
[2024-01-15 05:06] LABS: Basophils Percent Auto 0.1 % (0.2-1.2); Hemoglobin 13.5 g/dL (14.0-18.0); Immature Granulocyte Absolute 0.09 K/mm3 (0.00-0.031); Immature Granulocyte Percent A 0.6 % (0-0.5); Lymphocytes Absolute Auto 0.64 K/mm3 (0.9-3.2); Lymphocytes Percent Auto 4.3 % (18.3-44.2); Mean Corpuscular HGB Conc 32.9 g/dl (32-36); Mean Corpuscular Hemoglobin 27.8 pg (26-34); Mean Corpuscular Volume 84.5 fl (80-100); Mean Platelet Volume 10.1 fl (7.4-10.4); Monocytes Absolute Auto 0.5 K/mm3 (0.1-0.6); Monocytes Percent Auto 3.1 % (2.6-8.5); Neutrophils Absolute Auto 13.8 K/mm3 (1.3-6.7); Neutrophils Percent Auto 91.9 % (45.5-73.1); Platelet Count Result 239 k/mm3 (150-375); Red Blood Count 4.85 M/mm3 (4.6-6.20); Red Cell Distribution Width 13.2 % (11.5-14.5)
[2024-01-15 05:30] LABS: Alanine Aminotransferase 16 U/L (6-50); Albumin Level 3.7 g/dL (3.5-5.1); Alkaline Phosphatase 51 U/L (38-126); Anion Gap 9 mmol/L (4-12); Aspartate Amino Transferase 27 U/L (17-59); Bilirubin,Total 0.2 mg/dL (0.2-1.3); Blood Urea Nitrogen 27 mg/dL (9-20); Carbon Dioxide 25 mmol/L (22-30); Chloride 101 mmol/L (98-107); Estimated CRCL calculation 71 ml/min; Estimated Glomerular Filt Rate > 60; Glucose 135 mg/dL (65-110); Potassium 4.2 mmol/L (3.4-5.0); Sodium 135 mmol/L (137-145)
[2024-01-15] MEDS: dexAMETHasone SOD PHOS INJ 4 MG/ML VIAL IV PUSH (05:37)
[2024-01-15] MEDS: ACETAMINOPHEN 325 MG TABLET 650 MG PO (05:38)
[2024-01-15] MEDS: IBUPROFEN 600 MG TABLET PO (05:38)
[2024-01-15] MEDS: CHOLECALCIFEROL 1,000 UNITS TABLET 2000 UNITS PO (08:22)
[2024-01-15] MEDS: polyethylene glycoL 3350 17 GM POWD.PACK PO (08:22)
[2024-01-15] MEDS: MELOXICAM 7.5 MG TABLET 15 MG PO (08:22)
[2024-01-15] MEDS: FAMOTIDINE 20 MG TABLET PO (08:22)
--- NOTE | 2024-01-15 11:55 | PCPTNOTE ---
On 01/15/24, the student, [Chantelle Wilkes], provided care and completed [facility] documentation on this patient. I have reviewed the student's documentation and agree with the findings.
--- NOTE | 2024-01-15 16:50 | PM.DS ---
DS: Admitting Diagnosis Discharge Date 01/15/24 Admitting Diagnosis Back pain DS: Discharge Diagnosis Discharge Diagnosis (1) Lumbar pain: Code(s): M54.50 - Low back pain, unspecified Status: Acute Assessment and Plan: - CT abd/pelvis/lumbar: 1. Severe lumbar spondylosis. 2. Thoracolumbar dextroscoliosis. 3. Moderate osteoarthritis of the hips. - neurosurgery consulted - MRI lumbar spine Left paracentral disc extrusion/herniation at L2-L3, extending inferiorly behind the L3 vertebral body, and probably impinging the descending left-sided L3-L4 level nerve root. Multilevel spinal canal stenosis and severe neural foraminal narrowing. - pain control: Scheduled Tylenol, ibuprofen, meloxicam daily. He states the Flexeril dose not help much. Patient has had difficulty with narcotic pain medications in the past causing skin irritation, anxiety, and nausea. Will trial him on oxycodone prn with Pepcid and Benadryl as needed. He will also likely benefit from a steroid taper at discharge with follow up in pain management clinic with Dr Peres. - steroids: Dexamethasone - start bowel regimen, last BM on 01/11 Plan Patient here with lower back pain radiating into his left leg with associated numbness to his anterior thigh. Worsening over the last few days. CT showing severe lumbar spondylosis, see report. MRI ordered. Neurosurgery consulted. Pain control and steroids in interim. Diet: Heart healthy GI Prophylaxis: Not currently indicated DVT Prophylaxis: SCDs Lines: Peripheral Code Status: Full code DS: Summary Hospital Course Reason for hospitalization: Back pain Hospital Course: This is a 73-year-old gentleman with really no significant past medical history who presented with lower back pain with radiating pain to his left lateral thigh that was impairing completion of his activities of daily living. He underwent lumbar spine MRI and found to have impingement at L3-L4. He was admitted as an inpatient for pain control and started on oxycodone, scheduled Tylenol scheduled ibuprofen, and IV steroids. Neurosurgery was consulted and saw him and agreed with our plan of care. PT worked with him and recommended outpatient therapy. On 01/14 his symptoms have improved greatly with steroids and pain medications and he was ready to discharge home with outpatient PT, neurosurgery follow-up, and pain management follow-up. Time Spent with Patient Time attestation: Total time spent providing and/or coordinating discharge services: 74 Exam Narrative: General: well appearing, appears stated age. HEENT: normocephalic, atraumatic. Mucous membranes moist. EOMI, PERRLA, bilateral sclera anicteric, no conjunctival injection. Neck supple without JVD, lymphadenopathy, or bruit. Respiratory: clear to auscultation bilaterally. No rales/rhonic/wheezes. Cardiovascular: Regular rate and rhythm, normal S1-S2 upon auscultation. No murmurs, rubs, or clicks. PMI is nondisplaced, capillary refill less than 3 second. Abdomen: Soft, round, no pulsatile masses, nondistended and nontender. No rebound, no guarding. No CVA tenderness, no hepatosplenomegaly. Bowel sounds present to all four quadrants. No high pitch or tinkling sounds, resonant to percussion. Extremities: No cyanosis, clubbing, or edema present. Pulses are palpable 2/2. Active ROM to all four extremities. 5/5 muscle strength in bilateral upper and lower extremities. Neuro: Alert and orientated x 4. PERRLA. Cranial nerves 2-12 intact without focal deficit. Skin: Warm, dry, and intact, without rash, erythema, or lesion. Lines: PIV Incisions: Psych: pleasant, cooperative, normal speech, normal affect, no hallucinations, no dysarthria DS: Data Data Completed and Pending Labs on day of discharge: Labs from last 24 hours 01/15/24 01/14/24 04:27 17:00 WBC 15.0 H RBC 4.85 Hgb 13.5 L Hct 41.0 L MCV 84.5 MCH 27.8 MCHC 32.9 RDW 13.2 Plt Count 2
== END 2024-01-15 11:44 | disposition home or self-care (01) | DRG 552 ==
LOC: ANHED 19:48 → ANH2MED 20:01
PROVIDERS: Admitting Provider Hospitalist; Emergency Provider Nurse Practitioner Family; PCP Family Medicine; Visit Provider Nurse Practitioner Acute Care
DX: M51.16 Intervertebral disc disorders with radiculopathy, lumbar region (principal); M47.896 Other spondylosis, lumbar region; D64.9 Anemia, unspecified; M19.90 Unspecified osteoarthritis, unspecified site; E78.5 Hyperlipidemia, unspecified; Z85.46 Personal history of malignant neoplasm of prostate; Z87.442 Personal history of urinary calculi; Z96.651 Presence of right artificial knee joint
CPT/HCPCS: 36415; 72132; 72148; 74177; 80053; 81003; 82948; 85025; 96374; 96375; 96376; 97161; 97530; 99285; A9270; J1100; J1885; J3010; Q9967

== ENCOUNTER 2024-01-26 08:01 | Outpatient (CLI) | payer MEDICARE, SELFPAY ==
--- NOTE | ~2024-01-26 | XR_ITS ---
XR abdomen/kub 1V 01/26/2024 08:25 INDICATION: Right ureteral stone TECHNIQUE: KUB COMPARISON: Comparison to multiple prior studies sequentially, with oldest reviewed study dated 08/20. FINDINGS: Bowel gas pattern is normal. There is no evidence of free air, mass, organomegaly, ascites or obstruction. No abnormal calculi are seen. The bones appear intact. Moderate-severe lumbar spon dylosis with dextroscoliosis. IMPRESSION: 1: No acute abdominal abnormality identified. Reviewed, dictated and finalized at location B.
== END 2024-01-26 08:02 ==
PROVIDERS: PCP Urology; Visit Provider Urology
DX: N20.1 Calculus of ureter (principal)
CPT/HCPCS: 74018

== ENCOUNTER 2024-03-22 10:05 | Outpatient (CLI) | payer MEDICARE, SELFPAY ==
[2024-03-22 13:55] LABS: Hematocrit 44.5 % (42.0-52.0); Hemoglobin 14.3 g/dL (14.0-18.0); Mean Corpuscular HGB Conc 32.1 g/dl (32-36); Mean Corpuscular Hemoglobin 28.9 pg (26-34); Mean Corpuscular Volume 89.9 fl (80-100); Mean Platelet Volume 10.4 fl (7.4-10.4); Platelet Count Result 198 k/mm3 (150-375); Red Blood Count 4.95 M/mm3 (4.6-6.20); Red Cell Distribution Width 14.3 % (11.5-14.5); White Blood Count 4.8 K/mm3 (4.5-10.0)
[2024-03-22 16:06] LABS: Alanine Aminotransferase 17 U/L (6-50); Albumin Level 4.2 g/dL (3.5-5.1); Alkaline Phosphatase 60 U/L (38-126); Anion Gap 7 mmol/L (4-12); Aspartate Amino Transferase 55 U/L (17-59); Bilirubin,Total 0.5 mg/dL (0.2-1.3); Blood Urea Nitrogen 18 mg/dL (9-20); Carbon Dioxide 27 mmol/L (22-30); Chloride 104 mmol/L (98-107); Cholesterol 204 mg/dL (0-200); Estimated Glomerular Filt Rate > 60; Glucose 86 mg/dL (65-110); HDL Direct 74 mg/dL; Potassium 4.6 mmol/L (3.4-5.0); Sodium 138 mmol/L (137-145); Triglycerides 126 mg/dL (<150)
[2024-03-22 16:14] LABS: Vitamin D 25 Hydroxy 31.3 ng/mL
[2024-03-22 16:16] LABS: LDL Cholesterol Direct 88 mg/dL
== END 2024-03-22 10:06 | disposition home or self-care (01) ==
LOC: ANHGOSHLAB 10:06
PROVIDERS: PCP Urology; Visit Provider Nurse Practitioner
DX: E78.5 Hyperlipidemia, unspecified (principal); E55.9 Vitamin D deficiency, unspecified; D64.9 Anemia, unspecified
CPT/HCPCS: 36415; 80053; 80061; 82306; 85027

== ENCOUNTER 2024-06-22 10:56 | Outpatient (CLI) | payer MEDICARE, SELFPAY | END 2024-06-22 10:57 | disposition home or self-care (01) | LOC: ANHAUDIO 10:58 | PROVIDERS: PCP Family Medicine; Visit Provider Nurse Practitioner | DX: H90.3 Sensorineural hearing loss, bilateral (principal); H93.13 Tinnitus, bilateral | CPT/HCPCS: 92557; 92567 ==

== ENCOUNTER 2024-07-25 09:38 | Outpatient (CLI) | payer MEDICARE, SELFPAY ==
[2024-07-25 14:04] LABS: Alanine Aminotransferase 21 U/L (6-50); Albumin Level 4.2 g/dL (3.5-5.1); Alkaline Phosphatase 67 U/L (38-126); Anion Gap 9 mmol/L (4-12); Aspartate Amino Transferase 38 U/L (17-59); Bilirubin,Total 0.7 mg/dL (0.2-1.3); Blood Urea Nitrogen 17 mg/dL (9-20); Calcium 9.2 mg/dL (8.4-10.2); Carbon Dioxide 25 mmol/L (22-30); Chloride 105 mmol/L (98-107); Cholesterol 208 mg/dL (0-200); Estimated Glomerular Filt Rate > 60; Glucose 87 mg/dL (65-110); HDL Direct 77 mg/dL; Sodium 139 mmol/L (137-145); Triglycerides 106 mg/dL (<150)
[2024-07-25 14:15] LABS: LDL Cholesterol Direct 96 mg/dL
== END 2024-07-25 09:39 | disposition home or self-care (01) ==
LOC: ANHGOSHLAB 09:40
PROVIDERS: PCP Family Medicine; Visit Provider Nurse Practitioner
DX: E78.5 Hyperlipidemia, unspecified (principal)
CPT/HCPCS: 36415; 80053; 80061

== ENCOUNTER 2024-11-21 08:44 | Outpatient (CLI) | payer MEDICARE, SELFPAY ==
--- OUTSIDE RECORDS SUMMARY | 2024-11-21 08:52 | XMS_ITS | Clinical Summary ---
Author Organization [facility] Address [address] [place] [address] Care Team Providers Care Ppa Teacher Name Role Phone Mai Reid MD Primary Care Provider [phone] Source Comments [facility],non-owned Affiliates and Associated Physician Practices is amultiple site organization consisting of ambulatory clinics and hospital sitesin [place], [place], [place] and [place]. This disclosure is being madepursuant to the Care Everywhere program and may not contain all information available regarding this patient. 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 Gender Identity Not on file Sexual Orientation Not on file Plan of Treatment Health Maintenance Due Date Last Done Comments COLOGUARD (AGES 45-75) - COL ON CA SCREENING 1952 COLON MONITORING 1952 COLONOSCOPY - COLON CA SCREENING 1952 CT COLONOGRAPHY - COLON CA SCREENING 1952 Colorectal Cancer Screening 1952 FIT - COLON CA SCREENING 1952 FLEX SIG - COLON CA SCREENING 1952 LIPID TESTING 1952 MEDICARE AWV 12 MONTHS 1952 HEPATITIS C SCREENING 10/13/1970 DTAP/TDAP/TD VACCINES (1 - Tdap) 10/18/1971 PNEUMOCOCCAL VACCINE 50+ (1 of 1 - PCV) 2002 ZOSTER VACCINE (1 of 2) 2002 COVID-19 VACCINE (1 - 2023-2 5 season) 2024 DEPRESSION SCREENING 07/06/2024 INFLUENZA VACCINE (Season Ended) 2025 Respiratory Syncytial Virus (RSV) Vaccine Pt: or over 60 yrs (1 - 1-dose 75+ series) 10/18/2027 HEPATITIS B VACCINE Aged Out No longe r eligible based on patient's age to complete this topic HIB VACCINE Aged Out No longer eligi ble based on patient's age to complete this topic HPV VACCINE Aged Out No longer eligi ble based on patient's age to complete this topic MENINGOCOCCAL (Group B) VACC INE SHARED DECISION-MAKING Aged Out No longer eligibl e based on patient's age to complete this topic MENINGOCOCCAL GROUPS A/C/Y/W VACCINE Aged Out No longer eligible b ased on patient's age to complete this topic Insurance [facility] * Guarantor: VIVIANA VILLALOBOS Account Type Relation to Patient Date of Phone Billing Address Personal/Family [facility] [place] [address] MEDICARE AET Member Subscriber Plan / Payer (Ef fective 2020-Present) Name:Viviana Villalobos Relation to Subscriber:Self Name:Viviana Villalobos Payer ID:1 (NAIC) Group ID:PLAN [id number] Type:Commercial Address: [place] [phone] * Guarantor: GIANCARLOVIVIANA Account Type Relation to Patient Date of Phone Billing Address Personal/Family [address] [address] MEDICARE Member Subscriber Plan / Payer (Ef fective 2020-) Name:Viviana Villalobos Member ID:[id number] Relation to Subscriber:Self Name:Viviana Villalobos Subscriber ID:[id number] Payer ID:Not on file Group ID:Not on file Type:Medicare Address: [address] Member Subscriber Plan / Payer (Ef fective 2020-) Name:Viviana Villalobos Relation to Subscriber:Self Name:Viviana Villalobos Payer ID:1 ([facility]) Group ID:PLAN [id number] Type:Commercial Address: [place] [phone] * Guarantor: GIANCARLOVIVIANA Account Type Relation to Patient Date of Phone Billing Address Personal/Family [facility] [place] [id number] MEDICARE [facility] Care Teams Ppa Teacher Relationship Specialty Start Date End Date Mai Reid MD [address] [place] [address] PCP - General 05/14/20
[2024-11-21 20:12] LABS: Hematocrit 38.8 % (42.0-52.0); Hemoglobin 11.7 g/dL (14.0-18.0); Mean Corpuscular HGB Conc 30.2 g/dl (32-36); Mean Corpuscular Hemoglobin 26.7 pg (26-34); Mean Corpuscular Volume 88.6 fl (80-100); Mean Platelet Volume 10.6 fl (7.4-10.4); Platelet Count Result 241 k/mm3 (150-375); Red Blood Count 4.38 M/mm3 (4.6-6.20); Red Cell Distribution Width 13.1 % (11.5-14.5); White Blood Count 4.3 K/mm3 (4.5-10.0)
[2024-11-21 21:44] LABS: Alanine Aminotransferase 22 U/L (6-50); Alkaline Phosphatase 61 U/L (38-126); Anion Gap 8 mmol/L (4-12); Aspartate Amino Transferase 43 U/L (17-59); Bilirubin,Total 0.4 mg/dL (0.2-1.3); Blood Urea Nitrogen 19 mg/dL (9-20); Calcium 8.7 mg/dL (8.4-10.2); Carbon Dioxide 24 mmol/L (22-30); Chloride 108 mmol/L (98-107); Cholesterol 191 mg/dL (0-200); Estimated Glomerular Filt Rate > 60; Glucose 74 mg/dL (65-110); HDL Direct 67 mg/dL; Potassium 3.9 mmol/L (3.4-5.0); Sodium 140 mmol/L (137-145); Triglycerides 104 mg/dL (<150)
[2024-11-21 21:55] LABS: LDL Cholesterol Direct 78 mg/dL
[2024-11-21 22:14] LABS: Prostate Specific Antigen < 0.1 ng/mL (< OR = 4.0)
== END 2024-11-21 08:45 | disposition home or self-care (01) ==
LOC: ANHGOSHLAB 08:45
PROVIDERS: PCP Nurse Practitioner; Visit Provider Nurse Practitioner
DX: E78.5 Hyperlipidemia, unspecified (principal); E03.9 Hypothyroidism, unspecified; Z85.46 Personal history of malignant neoplasm of prostate
CPT/HCPCS: 36415; 80053; 80061; 84153; 84443; 85027

== ENCOUNTER 2024-11-24 10:36 | Outpatient (NON) | payer MEDICARE, SELFPAY ==
--- OUTSIDE RECORDS SUMMARY | 2024-11-24 10:39 | XMS_ITS | Encounter Summary ---
Author Organization [facility] Address [address] 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 Gender Identity Not on file Sexual Orientation Not on file documented as of this encounter Plan of Treatment Not on file documented as of this encounter Procedures Procedure Name Priority Date/Time Associated Diagnosis Comments DERMATOPATHOLOGY Routine 09/20/2020 3:33 AM CDT documented in this encounter Results * DERMATOPATHOLOGY (09/20/2020 3:33 AM CDT) Case Report Dermatopathology Report Case: [id number] Authorizing Provider: Edu Arevalo MD Collected: 09/20/2020 03:33 AM Ordering Location: [facility] Received: 09/22/2020 01:55 PM Pathologist: Jarrod Boyce MD Specimen: Skin, right FH 3:35 PM CDT DERMATOPATHOLOGY LABORATORY Final Diagnosis Specimen A. SKIN, right FH: HYPERPLASTIC (HYPERTROPHIC) ACTINIC KERATOSIS (L57.0) OVERLYING CUTANEOUS HORN (L85.8) 3:35 PM CDT DERMATOPATHOLOGY LABORATORY at 1535 CDT Clinical History SCCA vs AK. Path# [id number]. 3:35 PM CDT DERMATOPATHOLOGY LABORATORY Gross Description Specimen A: Received is one formalin filled container labeled with the patient's name and designated right FH. The specimen consists of a shave biopsy measuring [id number]. Jar 0. 3:35 PM CDT DERMATOPATHOLOGY LABORATORY Microscopic Description Specimen A. SKIN, right FH: There is hyperkeratosis alternating with parakeratosis. There is epidermal hyperplasia with disorderly maturation of keratinocytes with nuclear pleomorphism confined to the lower half of the epidermis. There is a column of marked compact hyperkeratosis. 3:35 PM CDT DERMATOPATHOLOGY LABORATORY Disclaimer An external and internal positive and negative controls are appropriate for the histochemical, immunohistochemical and immunofluorescence stain(s) in this case (if any), except where stated explicitly. The performance characteristics of the stain(s) cited in this report were developed and its performance characteristic determined by the Dermatopathology Laboratory at [facility], directed by Dr. Mary Boyce. These tests need not be, and therefore are not, approved by the [place] Food and Drug Administration. The tests are used for clinical purposes. Billing Codes Specimen Charges Stain Charges 29970 1 3:35 PM CDT DERMATOPATHOLOGY LABORATORY Embedded Images 3:35 PM CDT DERMATOPATHOLOGY LABORATORY Pathology/Cytolo gy TISSUE SPECIMEN FROM SKIN / Unknown 09/20/2020 3:33 AM CDT 09/22/2020 1:55 PM CDT us Edu Arevalo MD LAB - PATHOLOGY/CYTOLOGY ORDER GIA Final Result DERMATOPATHOLOGY LABORATORY [facility] - Department of Dermatology [address], [address] [phone] documented in this encounter Visit Diagnoses Not on filedocumented in this encounter Care Teams Pharmacy General Manager Relationship Specialty Start Date End Date Ahmet Reid MD [address] [place] [address] PCP - General 05/14/20 documented as of this encounter
--- OUTSIDE RECORDS SUMMARY | 2024-11-24 10:39 | XMS_ITS | Clinical Summary ---
Author Organization [facility] [address] [facility] [place] [address] Care Team Providers Care Hedis Review Nurse Name Role Phone Janny Santoyo DO Primary Care Provider [phone] Allergies Active Allergy Reactions Criticality Noted Date Comments Sulfa (Sulfonamide Antibiotics) Nausea & Vomiting Low 10/26/2022 Medications No known medications Active Problems No known active problems Social History Tobacco Use Types Packs/Day Years Used Date Smoking Tobacco: Never Assessed Sex and Gender Information Value Date Recorded Sex Assigned at Not on file 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 Gender Identity Not on file Sexual Orientation Not on file Obstetrics History Last Filed Vital Signs Vital Sign Reading Time Taken Comments Blood Pressure 148/87 10/26/2022 6:29 PM CDT Pulse 64 10/26/2022 6:29 PM CDT Temperature 36.7 C (98 F) 10/26/2022 6:29 PM CDT Respiratory Rate 16 10/26/2022 6:29 PM CDT Oxygen Saturation 100% 10/26/2022 6:29 PM CDT Inhaled Oxygen Concentration - - Weight 70.3 kg (155 lb) 10/26/2022 6:29 PM CDT Height 171.5 cm (5' 7.5 ) 10/26/2022 6:29 PM CDT Body Mass Index 23.92 10/26/2022 6:29 PM CDT Plan of Treatment Health Maintenance Due Date Last Done Comments Colon Cancer Screening-Colonoscopy 1952 Depression Screening 1952 Fall Risk Assessment 1952 Hepatitis C Screening 1952 DTaP/Tdap/Td Vaccine (1 - Tdap) 10/18/1963 Hepatitis B Screening 1970 Pneumococcal vaccine 65+ (1 of 1 - PCV) 2002 Zoster Vaccine (1 of 2) 2002 Abdominal Aortic Aneurysm (AAA) Screen 2017 Well Visit 65+ 2017 Influenza Vaccine (Season Ended) 2025 Insurance MEDICARE [facility] Care Teams Hedis Review Nurse Relationship Specialty Start Date End Date Janny Santoyo DO PCP - General Family Medicine 10/26/22
--- OUTSIDE RECORDS SUMMARY | 2024-11-24 10:39 | XMS_ITS | Clinical Summary ---
Author Organization [facility] [employer] Address [address] [place] [address] Care Team Providers Care Pad Hand Name Role Phone Mai Reid MD Primary Care Provider [phone] Source Comments [facility] [employer],non-owned Affiliates and Associated Physician Practices is amultiple site organization consisting of ambulatory clinics and hospital sitesin [place], [place], [place] and [place]. This disclosure is being madepursuant to the Care Everywhere program and may not contain all information available regarding this patient. 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 Gender Identity Not on file Sexual Orientation [...] patient's age to complete this topic Insurance [facility] * Guarantor: VIVIANA VILLALOBOS Account Type Relation to Patient Date of Phone Billing Address Personal/Family [facility] [place] [address] MEDICARE AET Member Subscriber Plan / Payer (Ef fective 2020-Present) Name:Viviana Villalobos Relation to Subscriber:Self Name:Viviana Villalobos Payer ID:1 (NAIC) Group ID:PLAN G Type:Commercial Address: [place] [phone] * Guarantor: GIANCARLOVIVIANA Account Type Relation to Patient Date of Phone Billing Address Personal/Family [address] [address] MEDICARE Member Subscriber Plan / Payer (Ef fective 2020-) Name:Viviana Villalobos Member ID:[id number] Relation to Subscriber:Self Name:Viviana Villalobos Subscriber ID:[id number] Payer ID:Not on file Group ID:Not on file Type:Medicare Address: [address] Member Subscriber Plan / Payer (Ef fective 2020-) Name:Viviana Villalobos Relation to Subscriber:Self Name:Viviana Villalobos Payer ID:1 ([facility]) Group ID:PLAN G Type:Commercial Address: [place] [phone] * Guarantor: GIANCARLOVIVIANA Account Type Relation to Patient Date of Phone Billing Address Personal/Family [facility] [place] [id number] MEDICARE [facility] Care Teams Pad Hand Relationship Specialty Start Date End Date Mai Reid MD [address] [address] PCP - General 05/14/20
--- OUTSIDE RECORDS SUMMARY | 2024-11-24 10:39 | XMS_ITS | Encounter Summary ---
Author Organization [facility] Address [address] [place] [address] Care Team Providers Care Product Inspection Coordinator Name Role Phone Ahmet Reid MD Primary Care Provider [phone] Encounter Details Date Type Department Care Team (Late st Contact Info) Description 12/28/2021 Lab Requisition [facility] [address] [place] [phone] Edu Arevalo MD [address] [place], [place] [id number] Social History Tobacco Use Types Packs/Day Years Used Date Smoking Tobacco: Never Assessed Sex and Gender Information Value Date Recorded Sex Assigned at Not on file 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 Gender Identity Not on file Sexual Orientation Not on file documented as of this encounter Plan of Treatment Not on file documented as of this encounter Procedures Procedure Name Priority Date/Time Associated Diagnosis Comments DERMATOPATHOLOGY Routine 12/27/2021 3:33 AM CDT documented in this encounter Results * DERMATOPATHOLOGY (12/27/2021 3:33 AM CDT) Case Report Dermatopathology Report Case: [id number] Authorizing Provider: Edu Arevalo MD Collected: 12/27/2021 03:33 AM Ordering Location: [facility] Received: 12/28/2021 11:05 AM Pathologist: Katty Solorzano MD Specimen: Skin, right upper FH 12:06 PM CDT DERMATOPATHOLOGY LABORATORY Final Diagnosis Specimen A. 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 Path # [id number]. 2 12:06 PM CDT DERMATOPATHOLOGY LABORATORY Gross Description Specimen A: Received is one formalin filled container labeled with the patient's name and designated right upper FH. The specimen consists of a shave biopsy measuring [id number]. Jar 0. 2 12:06 PM CDT DERMATOPATHOLOGY LABORATORY Microscopic Description Specimen A. SKIN, right upper FH: The epidermis shows parakeratosis, full thickness disorderly maturation of keratinocytes, mitoses at different levels, and dyskeratotic cells. 2 12:06 PM CDT DERMATOPATHOLOGY LABORATORY Disclaimer An external and internal positive and negative controls are appropriate for the histochemical, immunohistochemical and immunofluorescence stain(s) in this case (if any), except where stated explicitly. The performance characteristics of the stain(s) cited in this report were developed and its performance characteristic determined by the Dermatopathology Laboratory at [facility], directed by Dr. Mary Boyce. These tests need not be, and therefore are not, approved by the [place] Food and Drug Administration. The tests are used for clinical purposes. Billing Codes Specimen Charges Stain Charges 79883 1 2 12:06 PM CDT DERMATOPATHOLOGY LABORATORY Embedded Images 2 12:06 PM CDT DERMATOPATHOLOGY LABORATORY Pathology/Cytolo gy TISSUE SPECIMEN FROM SKIN / Unknown 12/27/2021 3:33 AM CDT 12/28/2021 11:05 AM CDT us Edu Arevalo MD LAB - PATHOLOGY/CYTOLOGY ORDER GIA Final Result DERMATOPATHOLOGY LABORATORY [facility] - Department of Dermatology [facility] [address] [place] [address], [address] [place] [address], [facility] [phone] documented in this encounter Visit Diagnoses Not on filedocumented in this encounter Care Teams Product Inspection Coordinator Relationship Specialty Start Date End Date Ahmet Reid MD [address] [place] [address] PCP - General 05/14/20 documented as of this encounter
--- OUTSIDE RECORDS SUMMARY | 2024-11-24 10:39 | XMS_ITS | Referral Summary ---
Author Organization [facility] [address] Address [address] [place] [address] Care Team Providers Care Blister Packaging Machine Operator Name Role Phone Janny Santoyo DO Primary Care Provider [phone] Allergies Active Allergy Reactions Criticality Noted Date Comments Sulfa (Sulfonamide Antibiotics) Nausea & Vomiting Low 10/26/2022 Medications No known medications Active Problems No known active problems Social History Tobacco Use Types Packs/Day Years Used Date Smoking Tobacco: Never Assessed Sex and Gender Information Value Date Recorded Sex Assigned at Not on file 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
[2024-11-24 11:50] LABS: IFOB Positive Control Positive; Immunochemical Fecal Occult Bl Negative (N)
== END 2024-11-24 10:37 | disposition home or self-care (01) ==
PROVIDERS: PCP Nurse Practitioner; Visit Provider Nurse Practitioner
DX: K92.1 Melena (principal); R58 Hemorrhage, not elsewhere classified
CPT/HCPCS: 82274

== ENCOUNTER 2024-11-25 08:14 | Outpatient (CLI) | payer MEDICARE, SELFPAY ==
--- OUTSIDE RECORDS SUMMARY | 2024-11-25 08:17 | XMS_ITS | Clinical Summary ---
Author Organization [facility] Address [address] [place] [address] Care Team Providers Care Legal Clerk Name Role Phone Mai Reid MD Primary Care Provider [phone] Source Comments [facility],non-owned Affiliates and Associated Physician Practices is amultiple site organization consisting of ambulatory clinics and hospital sitesin [place], [place], [place] and [place]. This disclosure is being madepursuant to the Care Everywhere program and may not contain all information available regarding this patient. 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 Gender Identity Not on file Sexual Orientation [...] to complete this topic Insurance [facility] * Guarantor: VIVIANA VILLALOBOS Account Type Relation to Patient Date of Phone Billing Address Personal/Family [facility] [place] [address] MEDICARE AET Member Subscriber Plan / Payer (Ef fective 2020-Present) Name:Viviana Villalobos Relation to Subscriber:Self Name:Viviana Villalobos Payer ID:1 (NAIC) Group ID:[id number] [id number] Type:Commercial Address: [place] [phone] * Guarantor: GIANCARLOVIVIANA Account Type Relation to Patient Date of Phone Billing Address Personal/Family [address] [address] MEDICARE Member Subscriber Plan / Payer (Ef fective 2020-) Name:Viviana Villalobos Member ID:[id number] Relation to Subscriber:Self Name:Viviana Villalobos Subscriber ID:[id number] Payer ID:Not on file Group ID:Not on file Type:Medicare Address: [address] Member Subscriber Plan / Payer (Ef fective 2020-) Name:Viviana Villalobos Relation to Subscriber:Self Name:Viviana Villalobos Payer ID:1 ([facility]) Group ID:PLAN G Type:Commercial Address: [place] [phone] * Guarantor: GIANCARLOVIVIANA Account Type Relation to Patient Date of Phone Billing Address Personal/Family [facility] [place] [id number] MEDICARE [facility] Care Teams Legal Clerk Relationship Specialty Start Date End Date Mai Reid MD [address] [place] [address] PCP - General 05/14/20
--- OUTSIDE RECORDS SUMMARY | 2024-11-25 08:17 | XMS_ITS | Encounter Summary ---
Author Organization [facility] Address [address] 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 Gender Identity Not on file Sexual Orientation Not on file documented as of this encounter Plan of Treatment Not on file documented as of this encounter Procedures Procedure Name Priority Date/Time Associated Diagnosis Comments DERMATOPATHOLOGY Routine 12/27/2021 3:33 AM CDT documented in this encounter Results * DERMATOPATHOLOGY (12/27/2021 3:33 AM CDT) Case Report Dermatopathology Report Case: [id number] Authorizing Provider: Edu Arevalo MD Collected: 12/27/2021 03:33 AM Ordering Location: [facility] DermPath Lab Received: 12/28/2021 11:05 AM Pathologist: Katty Solorzano MD Specimen: Skin, right upper FH 12:06 PM CDT DERMATOPATHOLOGY LABORATORY Final Diagnosis Specimen A. 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 Path # [id number]. 2 12:06 PM CDT DERMATOPATHOLOGY LABORATORY Gross Description Specimen A: Received is one formalin filled container labeled with the patient's name and designated right upper FH. The specimen consists of a shave biopsy measuring [id number]. Jar 0. 2 12:06 PM CDT DERMATOPATHOLOGY [...] characteristic determined by the Dermatopathology Laboratory at [facility], directed by Dr. Mary Boyce. These tests need not be, and therefore are not, approved by the [place] Food and Drug Administration. The tests are used for clinical purposes. Billing Codes Specimen Charges Stain Charges 87574 1 2 12:06 PM CDT DERMATOPATHOLOGY LABORATORY Embedded Images 2 12:06 PM CDT DERMATOPATHOLOGY LABORATORY Pathology/Cytolo gy TISSUE SPECIMEN FROM SKIN / Unknown 12/27/2021 3:33 AM CDT 12/28/2021 11:05 AM CDT us Edu Arevalo MD LAB - PATHOLOGY/CYTOLOGY ORDER GIA Final Result DERMATOPATHOLOGY LABORATORY [facility] - Department of Dermatology [facility] Medicine [address] [place] [address], [address]rd [place] [address], [facility] [phone] documented in this encounter Visit Diagnoses Not on filedocumented in this encounter Care Teams Comic Book Writer Relationship Specialty Start Date End Date Ahmet Reid MD [address] [place] [address] PCP - General 05/14/20 documented as of this encounter
--- OUTSIDE RECORDS SUMMARY | 2024-11-25 08:17 | XMS_ITS | Referral Summary ---
Author Organization [facility] [address] Address [address] [place] [address] Care Team Providers Care Road Engineer Freight Name Role Phone Janny Santoyo DO Primary Care Provider [phone] Allergies Active Allergy Reactions Criticality Noted Date Comments Sulfa (Sulfonamide Antibiotics) Nausea & Vomiting Low 10/26/2022 Medications No known medications Active Problems No known active problems Social History Tobacco Use Types Packs/Day Years Used Date Smoking Tobacco: Never Assessed Sex and Gender Information Value Date Recorded Sex Assigned at Not on file 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
--- OUTSIDE RECORDS SUMMARY | 2024-11-25 08:17 | XMS_ITS | Clinical Summary ---
Author Organization [facility] [address] Address [facility] [place] [address] Care Team Providers Care Semiconductor Lab Technician Name Role Phone Janny Santoyo DO Primary Care Provider [phone] Allergies Active Allergy Reactions Criticality Noted Date Comments Sulfa (Sulfonamide Antibiotics) Nausea & Vomiting Low 10/26/2022 Medications No known medications Active Problems No known active problems Social History Tobacco Use Types Packs/Day Years Used Date Smoking Tobacco: Never Assessed Sex and Gender Information Value Date Recorded Sex Assigned at Not on file 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
--- OUTSIDE RECORDS SUMMARY | 2024-11-25 08:17 | XMS_ITS | Encounter Summary ---
Author Organization [facility] Address [address] 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 Gender Identity Not on file Sexual Orientation Not on file documented as of this encounter Plan of Treatment Not on file documented as of this encounter Procedures Procedure Name Priority Date/Time Associated Diagnosis Comments DERMATOPATHOLOGY Routine 09/20/2020 3:33 AM CDT documented in this encounter Results * DERMATOPATHOLOGY (09/20/2020 3:33 AM CDT) Case Report Dermatopathology Report Case: [id number] Authorizing Provider: Eud Arevalo MD Collected: 09/20/2020 03:33 AM Ordering Location: [facility] DermPath Lab Received: 09/22/2020 01:55 PM Pathologist: Jarrod Boyce MD Specimen: Skin, right FH 3:35 PM CDT DERMATOPATHOLOGY LABORATORY Final Diagnosis Specimen A. SKIN, right FH: HYPERPLASTIC (HYPERTROPHIC) ACTINIC KERATOSIS (L57.0) OVERLYING CUTANEOUS HORN (L85.8) 3:35 PM CDT DERMATOPATHOLOGY LABORATORY at 1535 CDT Clinical History SCCA vs AK. Path# [id number]. 3:35 PM CDT DERMATOPATHOLOGY LABORATORY Gross Description Specimen A: Received is one formalin filled container labeled with the patient's name and designated right FH. The specimen consists of a shave biopsy measuring [id number]. Jar 0. 3:35 PM CDT DERMATOPATHOLOGY LABORATORY [...] characteristic determined by the Dermatopathology Laboratory at [facility], directed by Dr. Mary Boyce. These tests need not be, and therefore are not, approved by the [place] Food and Drug Administration. The tests are used for clinical purposes. Billing Codes Specimen Charges Stain Charges 84326 1 3:35 PM CDT DERMATOPATHOLOGY LABORATORY Embedded Images 3:35 PM CDT DERMATOPATHOLOGY LABORATORY Pathology/Cytolo gy TISSUE SPECIMEN FROM SKIN / Unknown 09/20/2020 3:33 AM CDT 09/22/2020 1:55 PM CDT us Edu Arevalo MD LAB - PATHOLOGY/CYTOLOGY ORDER GIA Final Result DERMATOPATHOLOGY LABORATORY [facility] - Department of Dermatology [address], [address] [phone] documented in this encounter Visit Diagnoses Not on filedocumented in this encounter Care Teams Obstetrics Technician Relationship Specialty Start Date End Date Ahmet Reid MD [address] [place] [address] PCP - General 05/14/20 documented as of this encounter
[2024-11-25 12:34] LABS: Iron 38 ug/dL (49-181)
[2024-11-25 12:53] LABS: Percent Iron Saturation 9 % (20-50)
== END 2024-11-25 08:15 | disposition home or self-care (01) ==
PROVIDERS: PCP Nurse Practitioner; Visit Provider Nurse Practitioner
DX: D64.9 Anemia, unspecified (principal)
CPT/HCPCS: 36415; 82607; 83540; 83550

== ENCOUNTER 2025-03-29 09:04 | Outpatient (CLI) | payer MEDICARE, SELFPAY ==
--- OUTSIDE RECORDS SUMMARY | 2025-03-29 09:41 | XMS_ITS | Encounter Summary ---
Author Organization [facility] Address [address] [place] [address] Care Team Providers Care Tax Manager Name Role Phone Ahmet Reid MD Primary Care Provider [phone] Encounter Details Date Type Department Care Team (Late st Contact Info) Description 12/28/2021 Lab Requisition [facility] DermPath Lab [address] [place] [phone] Edu Arevalo MD [address] [facility] [address] Social History Tobacco Use Types Packs/Day Years Used Date Smoking Tobacco: Never Assessed Sex and Gender Information Value Date Recorded Sex Assigned at Not on file 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 Gender Identity Not on file Sexual Orientation Not on file documented as of this encounter Plan of Treatment Not on file documented as of this encounter Procedures Procedure Name Priority Date/Time Associated Diagnosis Comments DERMATOPATHOLOGY Routine 12/27/2021 3:33 AM CDT documented in this encounter Results * DERMATOPATHOLOGY (12/27/2021 3:33 AM CDT) Case Report Dermatopathology Report Case: [id number] Authorizing Provider: Edu Arevalo MD Collected: 12/27/2021 03:33 AM Ordering Location: [facility] DermPath Lab Received: 12/28/2021 11:05 AM Pathologist: Katty Solorzano MD Specimen: Skin, right upper FH 12:06 PM CDT DERMATOPATHOLOGY LABORATORY Final Diagnosis Specimen A. 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 Path # [id number]. 2 12:06 PM CDT DERMATOPATHOLOGY LABORATORY Gross Description Specimen A: Received is one formalin filled container labeled with the patient's name and designated right upper FH. The specimen consists of a shave biopsy measuring [id number]. Jar 0. 2 12:06 PM CDT DERMATOPATHOLOGY [...] characteristic determined by the Dermatopathology Laboratory at [facility], directed by Dr. Mary Boyce. These tests need not be, and therefore are not, approved by the [place] Food and Drug Administration. The tests are used for clinical purposes. Billing Codes Specimen Charges Stain Charges 33829 1 2 12:06 PM CDT DERMATOPATHOLOGY LABORATORY Embedded Images 2 12:06 PM CDT DERMATOPATHOLOGY LABORATORY Pathology/Cytolo gy TISSUE SPECIMEN FROM SKIN / Unknown 12/27/2021 3:33 AM CDT 12/28/2021 11:05 AM CDT us Edu Arevalo MD LAB - PATHOLOGY/CYTOLOGY ORDER GIA Final Result DERMATOPATHOLOGY LABORATORY [facility] - Department of Dermatology [address], [address] [phone] documented in this encounter Visit Diagnoses Not on filedocumented in this encounter Care Teams Tax Manager Relationship Specialty Start Date End Date Ahmet Reid MD [address] [place] [address] PCP - General 05/14/20 documented as of this encounter
--- OUTSIDE RECORDS SUMMARY | 2025-03-29 09:41 | XMS_ITS | Clinical Summary ---
Author Organization [facility] Address [address] [place] [address] Care Team Providers Care Tool Lapper Hand Name Role Phone Mai Reid MD Primary Care Provider [phone] Source Comments [facility],non-owned Affiliates and Associated Physician Practices is amultiple site organization consisting of ambulatory clinics and hospital sitesin [place], [place], [place] and [place]. This disclosure is being madepursuant to the Care Everywhere program and may not contain all information available regarding this patient. 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 Gender Identity Not on file Sexual Orientation [...] 2002 ZOSTER VACCINE (1 of 2) 2002 DEPRESSION SCREENING 07/06/2024 COVID-19 VACCINE (1 - 2023-2 5 season) 2025 INFLUENZA VACCINE (#1) 2025 Respiratory Syncytial Virus (RSV) Vaccine Pt: [...] patient's age to complete this topic Insurance [facility] * Guarantor: VIVIANA VILLALOBOS Account Type Relation to Patient Date of Phone Billing Address Personal/Family [facility] [place] [address] MEDICARE AET Member Subscriber Plan / Payer (Ef fective 2020-Present) Name:Viviana Villalobos Relation to Subscriber:Self Name:Viviana Villalobos Payer ID:1 (NAIC) Group ID:PLAN G Type:Commercial Address: [place] [phone] * Guarantor: GIANCARLOVIVIANA Account Type Relation to Patient Date of Phone Billing Address Personal/Family [address] [address] MEDICARE Member Subscriber Plan / Payer (Ef fective 2020-) Name:Viviana Villalobos Member ID:[id number] Relation to Subscriber:Self Name:Viviana Villalobos Subscriber ID:[id number] Payer ID:Not on file Group ID:Not on file Type:Medicare Address: [address] Member Subscriber Plan / Payer (Ef fective 2020-) Name:Viviana Villalobos Relation to Subscriber:Self Name:Viviana Villalobos Payer ID:1 ([facility]) Group ID:PLAN G Type:Commercial Address: [place] [phone] * Guarantor: GIANCARLOVIVIANA Account Type Relation to Patient Date of Phone Billing Address Personal/Family [facility] [place] [id number] MEDICARE [facility] Care Teams Tool Lapper Hand Relationship Specialty Start Date End Date Mai Reid MD [address] [place] [address] PCP - General 05/14/20
--- OUTSIDE RECORDS SUMMARY | 2025-03-29 09:41 | XMS_ITS | Encounter Summary ---
Author Organization [facility] Address [address] [facility] [place] [address] Care Team Providers Care Territory Business Manager Name Role Phone Ahmet Reid MD Primary Care Provider [phone] Encounter Details Date Type Department Care Team (Late st Contact Info) Description 09/22/2020 Lab Requisition [facility] DermPath Lab [address] [facility] [place] [phone] Edu Arevalo MD [address] [place] [address] Social History Tobacco Use Types Packs/Day Years Used Date Smoking Tobacco: Never Assessed Sex and Gender Information Value Date Recorded Sex Assigned at Not on file 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 Gender Identity Not on file Sexual Orientation Not on file documented as of this encounter Plan of Treatment Not on file documented as of this encounter Procedures Procedure Name Priority Date/Time Associated Diagnosis Comments DERMATOPATHOLOGY Routine 09/20/2020 3:33 AM CDT documented in this encounter Results * DERMATOPATHOLOGY (09/20/2020 3:33 AM CDT) Case Report Dermatopathology Report Case: [id number] Authorizing Provider: Edu Arevalo MD Collected: 09/20/2020 03:33 AM Ordering Location: [facility] DermPath Lab Received: 09/22/2020 01:55 PM Pathologist: Jarrod Boyce MD Specimen: Skin, right FH 3:35 PM CDT DERMATOPATHOLOGY LABORATORY Final Diagnosis Specimen A. SKIN, right FH: HYPERPLASTIC (HYPERTROPHIC) ACTINIC KERATOSIS (L57.0) OVERLYING CUTANEOUS HORN (L85.8) 3:35 PM CDT DERMATOPATHOLOGY LABORATORY at 1535 CDT Clinical History SCCA vs AK. Path# [id number]. 3:35 PM CDT DERMATOPATHOLOGY LABORATORY Gross Description Specimen A: Received is one formalin filled container labeled with the patient's name and designated right FH. The specimen consists of a shave biopsy measuring [id number]. Jar 0. 3:35 PM CDT DERMATOPATHOLOGY LABORATORY [...] characteristic determined by the Dermatopathology Laboratory at [facility], directed by Dr. Mary Bocye. These tests need not be, and therefore are not, approved by the [place] Food and Drug Administration. The tests are used for clinical purposes. Billing Codes Specimen Charges Stain Charges 51948 1 3:35 PM CDT DERMATOPATHOLOGY LABORATORY Embedded Images 3:35 PM CDT DERMATOPATHOLOGY LABORATORY Pathology/Cytolo gy TISSUE SPECIMEN FROM SKIN / Unknown 09/20/2020 3:33 AM CDT 09/22/2020 1:55 PM CDT us Edu Arevalo MD LAB - PATHOLOGY/CYTOLOGY ORDER GIA Final Result DERMATOPATHOLOGY LABORATORY [facility] - Department of Dermatology [address], [address] [phone] documented in this encounter Visit Diagnoses Not on filedocumented in this encounter Care Teams Territory Business Manager Relationship Specialty Start Date End Date Ahmet Reid MD [address] [place] [address] PCP - General 05/14/20 documented as of this encounter
--- OUTSIDE RECORDS SUMMARY | 2025-03-29 09:41 | XMS_ITS | Clinical Summary ---
Author Organization [facility] [address] Address [facility] [place] [address] Care Team Providers Care Brass Pourer Name Role Phone Janny Santoyo DO Primary Care Provider [phone] Allergies Active Allergy Reactions Criticality Noted Date Comments Sulfa (Sulfonamide Antibiotics) Nausea & Vomiting Low 10/26/2022 Medications No known medications Active Problems No known active problems Social History Tobacco Use Types Packs/Day Years Used Date Smoking Tobacco: Never Assessed Sex and Gender Information Value Date Recorded Sex Assigned at Not on file 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
[2025-03-29 19:07] LABS: Alanine Aminotransferase 24 U/L (6-50); Albumin Level 4.0 g/dL (3.5-5.1); Alkaline Phosphatase 59 U/L (38-126); Anion Gap 7 mmol/L (4-12); Aspartate Amino Transferase 44 U/L (17-59); Bilirubin,Total 0.5 mg/dL (0.2-1.3); Blood Urea Nitrogen 19 mg/dL (9-20); Calcium 8.7 mg/dL (8.4-10.2); Carbon Dioxide 26 mmol/L (22-30); Chloride 106 mmol/L (98-107); Cholesterol 205 mg/dL (0-200); Estimated Glomerular Filt Rate > 60; Glucose 80 mg/dL (65-110); HDL Direct 70 mg/dL; Iron 99 ug/dL (49-181); Potassium 4.5 mmol/L (3.4-5.0); Sodium 139 mmol/L (137-145); Total Protein 6.4 g/dL (6.3-8.2); Triglycerides 111 mg/dL (<150)
[2025-03-29 19:34] LABS: Hematocrit 45.5 % (42.0-52.0); Hemoglobin 15.3 g/dL (14.0-18.0); Immature Reticulocyte Fraction 7.7 % (3.0-15.9); Mean Corpuscular HGB Conc 33.6 g/dl (32-36); Mean Corpuscular Hemoglobin 30.1 pg (26-34); Mean Corpuscular Volume 89.6 fl (80-100); Platelet Count Result 215 k/mm3 (150-375); Red Blood Count 5.08 M/mm3 (4.6-6.20); Reticulocyte Hemoglobin Conten 34.0 pg (28.2-36.6); Reticulocytes Absolute 0.08 10^6/uL (0.02-0.10); White Blood Count 4.8 K/mm3 (4.5-10.0)
[2025-03-29 19:41] LABS: Percent Iron Saturation 31 % (20-50)
[2025-03-29 20:04] LABS: Ferritin 28.50 ng/mL (11.1-264)
== END 2025-03-29 09:05 | disposition home or self-care (01) ==
LOC: ANHGOSHLAB 09:05
PROVIDERS: PCP Family Medicine; Visit Provider Nurse Practitioner
DX: D64.9 Anemia, unspecified (principal); E78.5 Hyperlipidemia, unspecified; D50.9 Iron deficiency anemia, unspecified
CPT/HCPCS: 36415; 80053; 80061; 82728; 83540; 83550; 85027; 85046

== ENCOUNTER 2025-05-15 00:10 | Day surgery (SDC) | payer MEDICARE, SELFPAY ==
[2025-05-04 10:23] VITALS: BMI 25.1
--- OUTSIDE RECORDS SUMMARY | 2025-05-15 00:12 | XMS_ITS | Clinical Summary ---
Author Organization [facility] [employer] [facility] Address [address] [place] [address] Care Team Providers Care Sharepoint Solutions Architect Name Role Phone Mai Reid MD Primary Care Provider [phone] Source Comments [facility] [employer] [facility],non-owned Affiliates and Associated Physician Practices is amultiple site organization consisting of ambulatory clinics and hospital sitesin [place], [place], [place] and [place]. This disclosure is being madepursuant to the Care Everywhere program and may not contain all information available regarding this patient. 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 Gender Identity Not on file Sexual Orientation [...] Patient Date of Phone Billing Address Personal/Family [facility] [place] [address] MEDICARE AET Member Subscriber Plan / Payer (Ef fective 2020-Present) Name:Viviana Villalobos Relation to Subscriber:Self Name:Viviana Villalobos Payer ID:1 (NAIC) Group ID:PLAN G Type:Commercial Address: [place] [phone] * Guarantor: GIANCARLOVIVIANA Account Type Relation to Patient Date of Phone Billing Address Personal/Family [address] [address] MEDICARE Member Subscriber Plan / Payer (Ef fective 2020-) Name:Viviana Villalobos Member ID:[id number] Relation to Subscriber:Self Name:Viviana Villalobos Subscriber ID:[id number] Payer ID:Not on file Group ID:Not on file Type:Medicare Address: [address] Member Subscriber Plan / Payer (Ef fective 2020-) Name:Viviana Villalobos Relation to Subscriber:Self Name:Viviana Villalobos Payer ID:1 ([facility]) Group ID:PLAN G Type:Commercial Address: [place] [phone] * Guarantor: GIANCARLOVIVIANA Account Type Relation to Patient Date of Phone Billing Address Personal/Family [facility] [place] [id number] MEDICARE [facility] Care Teams Sharepoint Solutions Architect Relationship Specialty Start Date End Date Mai Reid MD [address] [place] [address] PCP - General 05/14/20
--- OUTSIDE RECORDS SUMMARY | 2025-05-15 00:12 | XMS_ITS | Clinical Summary ---
Author Organization [facility] [address] Address [facility] [place] [address] Care Team Providers Care Case Briefer Name Role Phone Janny Santoyo DO Primary Care Provider [phone] Allergies Active Allergy Reactions Criticality Noted Date Comments Sulfa (Sulfonamide Antibiotics) Nausea & Vomiting Low 10/26/2022 Medications No known medications Active Problems No known active problems Social History Tobacco Use Types Packs/Day Years Used Date Smoking Tobacco: Never Assessed Sex and Gender Information Value Date Recorded Sex Assigned at Not on file 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
--- OUTSIDE RECORDS SUMMARY | 2025-05-15 00:12 | XMS_ITS | Encounter Summary ---
Author Organization [facility] Address [address] [place] [address] Care Team Providers Care Fender Mechanic Name Role Phone Ahmet Reid MD Primary Care Provider [phone] Encounter Details Date Type Department Care Team (Late st Contact Info) Description 09/22/2020 Lab Requisition [facility] DermPath Lab [address] [facility] [place] [id number] Edu Arevalo MD [address] [facility] [place] [address] Social History Tobacco Use Types Packs/Day Years Used Date Smoking Tobacco: Never Assessed Sex and Gender Information Value Date Recorded Sex Assigned at Not on file 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 Gender Identity Not on file Sexual Orientation Not on file documented as of this encounter Plan of Treatment Not on file documented as of this encounter Procedures Procedure Name Priority Date/Time Associated Diagnosis Comments DERMATOPATHOLOGY Routine 09/20/2020 3:33 AM CDT documented in this encounter Results * DERMATOPATHOLOGY (09/20/2020 3:33 AM CDT) Case Report Dermatopathology Report Case: [id number] Authorizing Provider: Edu Arevalo MD Collected: 09/20/2020 03:33 AM Ordering Location: [facility] Derm[facility] Lab Received: 09/22/2020 01:55 PM Pathologist: Jarrod Boyce MD Specimen: Skin, right FH 3:35 PM CDT DERMATOPATHOLOGY LABORATORY Final Diagnosis Specimen A. SKIN, right FH: HYPERPLASTIC (HYPERTROPHIC) ACTINIC KERATOSIS (L57.0) OVERLYING CUTANEOUS HORN (L85.8) 3:35 PM CDT DERMATOPATHOLOGY LABORATORY at 1535 CDT Clinical History SCCA vs AK. Path# [id number]. 3:35 PM CDT DERMATOPATHOLOGY LABORATORY Gross Description Specimen A: Received is one formalin filled container labeled with the patient's name and designated right FH. The specimen consists of a shave biopsy measuring [id number]. Jar 0. 3:35 PM CDT DERMATOPATHOLOGY LABORATORY [...] characteristic determined by the Dermatopathology Laboratory at [facility], directed by Dr. Mary Boyce. These tests need not be, and therefore are not, approved by the [place] Food and Drug Administration. The tests are used for clinical purposes. Billing Codes Specimen Charges Stain Charges 92172 1 3:35 PM CDT DERMATOPATHOLOGY LABORATORY Embedded Images 3:35 PM CDT DERMATOPATHOLOGY LABORATORY Pathology/Cytolo gy TISSUE SPECIMEN FROM SKIN / Unknown 09/20/2020 3:33 AM CDT 09/22/2020 1:55 PM CDT us Edu Arevalo MD LAB - PATHOLOGY/CYTOLOGY ORDER GIA Final Result DERMATOPATHOLOGY LABORATORY [facility] - Department of Dermatology [address], [address] [phone] documented in this encounter Visit Diagnoses Not on filedocumented in this encounter Care Teams Fender Mechanic Relationship Specialty Start Date End Date Ahmet Reid MD [address] [address] PCP - General 05/14/20 documented as of this encounter
--- OUTSIDE RECORDS SUMMARY | 2025-05-15 00:12 | XMS_ITS | Encounter Summary ---
Author Organization [facility] Address [address] [place] [address] Care Team Providers Care Atmospheric Technician Name Role Phone Ahmet Reid MD Primary Care Provider [phone] Encounter Details Date Type Department Care Team (Late st Contact Info) Description 12/28/2021 Lab Requisition [facility] DermPath Lab [address] [facility] [place] [id number] Edu Arevalo MD [address] [facility] [place] [address] Social History Tobacco Use Types Packs/Day Years Used Date Smoking Tobacco: Never Assessed Sex and Gender Information Value Date Recorded Sex Assigned at Not on file 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 Path # [id number] 12:06 PM CDT DERMATOPATHOLOGY LABORATORY Gross Description Specimen A: Received is one formalin filled container labeled with the patient's name and designated right upper FH. The specimen consists of a shave biopsy measuring [id number]. Jar 0. 2 12:06 PM CDT DERMATOPATHOLOGY [...] characteristic determined by the Dermatopathology Laboratory at [facility], directed by Dr. Mary Boyce. These tests need not be, and therefore are not, approved by the [place] Food and Drug Administration. The tests are used for clinical purposes. Billing Codes Specimen Charges Stain Charges 50628 1 2 12:06 PM CDT DERMATOPATHOLOGY LABORATORY Embedded Images 2 12:06 PM CDT DERMATOPATHOLOGY LABORATORY Pathology/Cytolo gy TISSUE SPECIMEN FROM SKIN / Unknown 12/27/2021 3:33 AM CDT 12/28/2021 11:05 AM CDT us Edu Arevalo MD LAB - PATHOLOGY/CYTOLOGY ORDER GIA Final Result DERMATOPATHOLOGY LABORATORY [facility] - Department of Dermatology [address] [phone] documented in this encounter Visit Diagnoses Not on filedocumented in this encounter Care Teams Atmospheric Technician Relationship Specialty Start Date End Date Ahmet Reid MD [address] [place] [address] PCP - General 05/14/20 documented as of this encounter
[2025-05-15 06:11] VITALS: BP 131/84; PULSE 58; RESP 18; TEMP 36.1; O2SAT 98; BMI 25.2
[2025-05-15] MEDS: LACTATED RINGERS 1,000 ML 150 ML IV CONT (06:28)
--- NOTE | 2025-05-15 06:51 | P.PNAN_ITS ---
Anes - Initial Pre Proc Eval Procedure: Operation Date: 05/15/25 07:30 Proposed Procedures p Screening Colonoscopy - Blaise Srivastava MD Date/Time: 05/15/25 06:51 Surgeon: Blaise Srivastava MD Pre Op Diagnosis: Personal hx of colon polyps Patient Data Age: 74 Gender: M Height: 1.73 m Weight: 75.4 kg Last Vital Signs Temp 36.1 C L 05/15/25 06:11 Pulse 58 L 05/15/25 06:11 Resp 18 05/15/25 06:11 BP 131/84 05/15/25 06:11 Pulse Ox 98 05/15/25 06:11 O2 Del Method Room Air 05/15/25 06:11 Allergies Allergy/AdvReac Type Severity Reaction Status Date / Time bee venom protein (honey Allergy Intermediate Swelling Verified 05/15/25 06:16 bee) (bees) codeine Allergy Intermediate Hives Verified 05/15/25 06:16 hydrocodone Allergy Intermediate Hives Verified 05/15/25 06:16 morphine Allergy Intermediate itching, Verified 05/15/25 06:16 nausea oxycodone Allergy Intermediate Itching Verified 05/15/25 06:16 pentazocine Allergy Intermediate Itching Verified 05/15/25 06:16 Sulfa (Sulfonamide Allergy Intermediate Abdominal Verified 05/15/25 06:16 Antibiotics) Pain, HIVES Home Medications ?Medication ?Instructions ?Recorded ?Confirmed ?Type cholecalciferol (vitamin D3) 50 50 mcg PO DAILY 05/15/25 History mcg (2,000 unit) tablet epinephrine 0.3 mg/0.3 mL 0.3 mg (0.3 mL) IM ONCE #2 e a 11/24/23 05/04/25 Rx injection, auto-injector ibuprofen 600 mg tablet 600 mg PO Q8HR 3 months #270 tabs 01/15/24 05/15/25 Rx Patient hx anesthesia problems: none Family hx anesthesia problems: none Results Review: All pre-operative results and documents have been reviewed as part of the pre- operative evaluation. [facility] Past Medical History Medical History Osteoarthritis Systolic murmur Vitamin D deficiency, unspecified Pilonidal cyst without infection Prostate CA (~10/11/20) Back pain Hyperlipidemia Anemia Elevated PSA Kidney stone Trigger finger Surgical History Surgical History History of lithotripsy History of carpal tunnel surgery 2020 H/O prostatectomy 10/2020 Status post trigger finger release (~06/24/21) Right- digits 2-5 Left- 2, 3 & 5th digits H/O hernia repair H/O inguinal hernia repair H/O vasectomy History of total right knee replacement Family History Family History Father Diabetes mellitus Family history of coronary artery disease Mother Family history of malignant neoplasm of breast Social History Social History Smoking status: Never smoker Second hand tobacco smoke exposure: No Alcohol intake: current Drinks per week: 1 Alcohol use details: BEER Substance use: never Substance use type: does not use Do You Feel Safe in your Home?: Yes Lack of Transportation: No Lack of Food: Never True Current Housing: I Have Housing Concerned About Future Housing: Decline to Answer Difficulty Paying Gas/Electric Bills: Decline to Answer Difficulty Paying for Meds: Decline to Answer Currently Unemployed: Decline to Answer Education: Bachelor's Degree Difficulty w/ Childcare or Family Care: No Living arrangements: with family Additional living arrangements comments: Occupation/Education: retired Gender identity (if verbalized by the patient): Male Sexual Orientation (if Verbalized by the Patient): Straight or Heterosexual Spiritual care concerns: No Anes - Eval Final PreProcedure Day of Procedure 05/15/25 06:51 Patient weight: normal Heart: regular rate and rhythm Lungs: clear to auscultation Airway: Mallampati scale class II Neurological: alert and oriented Last oral intake: >/= 8 hours ASA classification: III Emergent: no Anesthetic plan: proceed Anesthesia type and monitoring: general GIVS and standard monitoring Results Review: All pre-operative results and documents have been reviewed as part of the pre- operative evaluation. Informed Consent: The patient's anesthetic plan and its attendant risks and benefits were discussed with the patient/family/POA. Questions were solicited and answers provided to the satisfaction of the patient/family/POA.
[2025-05-15 07:48] VITALS: BP 96/63; PULSE 50; RESP 18; O2SAT 98
--- NOTE | 2025-05-15 07:50 | PM.IMHP ---
H&P: HPI History of Present Illness Date/Time: 05/15/25 07:50 Chief Complaint: History of colon polyps Narrative: The patient has a history of colonic polyps, the last colonoscopy was approximately 5 years ago. Review of Systems Review of Systems: All systems reviewed & are unremarkable except as noted in HPI and below PMFSH Past Medical History Medical History Osteoarthritis Systolic murmur Vitamin D deficiency, unspecified Pilonidal cyst without infection Prostate CA (~10/11/20) Back pain Hyperlipidemia Anemia Elevated PSA Kidney stone Trigger finger Surgical History Surgical History History of lithotripsy History of carpal tunnel surgery 2020 H/O prostatectomy 10/2020 Status post trigger finger release (~06/24/21) Right- digits 2-5 Left- 2, 3 & 5th digits H/O hernia repair H/O inguinal hernia repair H/O vasectomy History of total right knee replacement Family History Family History Father Diabetes mellitus Family history of coronary artery disease Mother Family history of malignant neoplasm of breast Social History Social History Smoking status: Never smoker Second hand tobacco smoke exposure: No Alcohol intake: current Drinks per week: 1 Alcohol use details: BEER Substance use: never Substance use type: does not use Do You Feel Safe in your Home?: Yes Lack of Transportation: No Lack of Food: Never True Current Housing: I Have Housing Concerned About Future Housing: Decline to Answer Difficulty Paying Gas/Electric Bills: Decline to Answer Difficulty Paying for Meds: Decline to Answer Currently Unemployed: Decline to Answer Education: Bachelor's Degree Difficulty w/ Childcare or Family Care: No Living arrangements: with family Additional living arrangements comments: Occupation/Education: retired Gender identity (if verbalized by the patient): Male Sexual Orientation (if Verbalized by the Patient): Straight or Heterosexual Spiritual care concerns: No Meds Home Medications and Allergies Home Medications ?Medication ?Instructions ?Recorded ?Confirmed ?Type cholecalciferol (vitamin D3) 50 50 mcg PO DAILY 10/08/23 05/15/25 History mcg (2,000 unit) tablet epinephrine 0.3 mg/0.3 mL 0.3 mg (0.3 mL) IM ONCE #2 ea 11/24/23 05/04/25 Rx injection, auto-injector ibuprofen 600 mg tablet 600 mg PO Q8HR 3 months #270 tabs 01/15/24 05/15/25 Rx Allergies Allergy/AdvReac Type Severity Reaction Status Date / Time bee venom protein (honey Allergy Intermediate Swelling Verified 05/15/25 06:16 bee) (bees) codeine Allergy Intermediate Hives Verified 05/15/25 06:16 hydrocodone Allergy Intermediate Hives Verified 05/15/25 06:16 morphine Allergy Intermediate itching, Verified 05/15/25 06:16 nausea oxycodone Allergy Intermediate Itching Verified 05/15/25 06:16 pentazocine Allergy Intermediate Itching Verified 05/15/25 06:16 Sulfa (Sulfonamide Allergy Intermediate Abdominal Verified 05/15/25 06:16 Antibiotics) Pain, HIVES Vital Signs Vital Signs - 24 hr 05/15/25 06:11 Temperature 96.9 F L Pulse Rate 58 L Respiratory Rate 18 Blood Pressure 131/84 Pulse Oximetry 98 Oxygen Delivery Room Air Exam Const: General: cooperative and healthy appearing Resp: Effort & Inspection: normal respiratory effort and able to speak in complete sentences Auscultation: clear to auscultation bilaterally Cardio: Rate: regular rate Rhythm: regular rhythm GI: Inspection: normal to inspection GI Palp: No No hepatosplenomegaly present Auscultation: normal bowel sounds Rectal Exam: deferred Skin: General skin exam: normal color Psych: Appearance: grossly normal Mental Status: mental status grossly normal Assessment and Plan Assessment and plan (1) Hx of colonic polyps: Code(s): Z86.0100 - Personal history of colon polyps, unspecified Status: Acute Assessment and Plan: The patient is deemed a good candidate for the procedure. Consent signed. Will proceed.
[2025-05-15 07:58] VITALS: BP 97/59; PULSE 48; RESP 19; O2SAT 100
[2025-05-15 08:08] VITALS: BP 120/87; PULSE 55; RESP 16; O2SAT 100
== END 2025-05-15 08:13 | disposition home or self-care (01) ==
PROVIDERS: PCP Family Medicine; Referring Provider Nurse Practitioner; Visit Provider Internal Medicine Gastroenterology
PROC: 0DJD8ZZ Inspection of Lower Intestinal Tract, Via Natural or Artificial Opening Endoscopic (ICD-10-PCS; CPT 45378; principal; 2025-05-15 07:30)
DX: Z12.11 Encounter for screening for malignant neoplasm of colon (principal); E78.5 Hyperlipidemia, unspecified; D64.9 Anemia, unspecified; R01.1 Cardiac murmur, unspecified; E55.9 Vitamin D deficiency, unspecified; M19.90 Unspecified osteoarthritis, unspecified site; Z79.1 Long term (current) use of non-steroidal anti-inflammatories (NSAID); Z98.890 Other specified postprocedural states; Z86.0100 Personal history of colon polyps, unspecified; Z87.442 Personal history of urinary calculi; Z85.46 Personal history of malignant neoplasm of prostate; Z80.3 Family history of malignant neoplasm of breast; Z82.49 Family history of ischemic heart disease and other diseases of the circulatory system
CPT/HCPCS: G0105; J2003; J2704; J7120